=== PATIENT | female | born 1960 | race Caucasian/White ===

== ENCOUNTER 2017-07-10 05:08 | Inpatient (IN) | payer MEDICAID ==
[2017-07-10] MEDS ORDERED: Acetaminophen 500 MG Tab PO ONE (05:51)
[2017-07-10] MEDS ORDERED: Celecoxib 200 MG Cap PO ONE (05:51)
[2017-07-10] MEDS ORDERED: Gabapentin 300 MG Cap PO ONE (05:51)
[2017-07-10] MEDS ORDERED: Dextrose 5%-Lactated Ringers 1,000 ML IV SCH (06:00)
[2017-07-10] MEDS ORDERED: Scopolamine 1.5 MG Transdermal Patch TRDERM ONE (06:00)
[2017-07-10] MEDS ORDERED: Albuterol/Ipratropium 3.0-0.5 MG/3 ML Neb Soln NEB ONE (06:23)
[2017-07-10] MEDS ORDERED: Aspirin 81 MG Tab.Chew PO ONE (06:27)
[2017-07-10] MEDS ORDERED: FLU Vacc QS 2017-18 (36mos UP)/PF 60 MCG/0.5 ML Syringe IM ONE (06:30)
[2017-07-10] MEDS ORDERED: cefOXitin 2 GM Vial ONE (06:42)
[2017-07-10] MEDS ORDERED: Rocuronium 50 MG/5 ML Vial ONE ×2 (07:04→08:56)
[2017-07-10] MEDS ORDERED: fentaNYL 250 MCG/5 ML SDV ONE (07:04)
[2017-07-10] MEDS ORDERED: Propofol 200 MG/20 ML SDV ONE (07:04)
[2017-07-10] MEDS ORDERED: Glycopyrrolate 0.2 MG/ML 5 ML MDV ONE (07:04)
[2017-07-10] MEDS ORDERED: Neostigmine Methylsulfate 1 MG/ML 5 ML Syringe ONE (07:04)
[2017-07-10] MEDS ORDERED: Dexamethasone 4 MG/ML SDV ONE (07:04)
[2017-07-10] MEDS ORDERED: Succinylcholine 200 MG/10 ML MDV ONE (07:04)
[2017-07-10] MEDS ORDERED: Ondansetron 4 MG/2 ML SDV ONE (07:04)
[2017-07-10] MEDS ORDERED: Aspirin 325 MG Tab.EC PO ONE (07:15)
[2017-07-10] MEDS ORDERED: cefOXitin 2 GM in Sodium Chloride 0.9% 50 ML IV ONE ×4 (07:30)
[2017-07-10] MEDS ORDERED: Lidocaine 2% 100 MG/5 ML Syringe IVPUSH ONE (07:30)
[2017-07-10] MEDS ORDERED: Ketamine 500 MG/5 ML MDV IV SCH (07:30)
[2017-07-10] MEDS ORDERED: Lidocaine 0.4%/D5W 2 GM/500 ML BAG IV SCH (07:30)
[2017-07-10] MEDS ORDERED: Ropivacaine 60 ML, Dexamethasone 8 MG, EPINEPHrine 0.4 MG, Sodium Chloride 0.9% 17.6 ML NERVRT SCH ×4 (07:30)
[2017-07-10] MEDS ORDERED: ePHEDrine 50 MG/ML SDV ONE (07:52)
[2017-07-10] MEDS ORDERED: Phenylephrine 1% 10 MG/ML SDV ONE (08:51)
[2017-07-10] MEDS ORDERED: Sugammadex Sodium 200 MG/2 ML VIAL ONE (09:54)
[2017-07-10] MEDS ORDERED: Insulin Aspart 100 Units/ML 3 ML Pen SUBCUT ONE (10:15)
[2017-07-10] MEDS ORDERED: hydrOXYzine HCl 100 MG/2 ML SDV IM ONE (10:39)
[2017-07-10] MEDS: Dextrose 5%-Lactated Ringers 1,000 ML IV SCH (12:20)
[2017-07-10] MEDS: CHECK SCOPOLAMINE PATCH DAILY TOP SCH (12:23)
[2017-07-10] MEDS ORDERED: Albuterol/Ipratropium 3.0-0.5 MG/3 ML Neb Soln INH PRN (14:00)
[2017-07-10] MEDS ORDERED: hydrOXYzine HCl 100 MG/2 ML SDV IM PRN (14:00)
[2017-07-10] MEDS ORDERED: 50% Dextrose in Water 50 ML Syringe IVPUSH PRN (14:00)
[2017-07-10] MEDS ORDERED: Labetalol 20 MG/4 ML Syringe IVPUSH PRN (14:00)
[2017-07-10] MEDS ORDERED: Ondansetron 4 MG/2 ML SDV IVPUSH PRN (14:00)
[2017-07-10] MEDS ORDERED: Metoclopramide 10 MG/2 ML SDV IVPUSH PRN (14:00)
[2017-07-10] MEDS ORDERED: Glucagon,Human Recombinant 1 MG Vial IM PRN (14:00)
[2017-07-10] MEDS ORDERED: diphenhydrAMINE 50 MG/ML SDV IVPUSH PRN (14:00)
[2017-07-10] MEDS: Gabapentin 250 MG/5 ML Solution ML 470 ML Bottle PO SCH ×2 (14:28→20:17)
[2017-07-10] MEDS: cefOXitin 2 GM in Sodium Chloride 0.9% 50 ML IV SCH ×2 (14:28→20:15)
[2017-07-10] MEDS: Acetaminophen Soln 650 MG/20.3 ML UD Cup PO SCH ×2 (14:29→20:17)
[2017-07-10] MEDS: Pantoprazole 40 MG Vial IVPUSH SCH (14:30)
[2017-07-10] MEDS: Albuterol/Ipratropium 3.0-0.5 MG/3 ML Neb Soln INH SCH ×2 (15:00→20:17)
[2017-07-10] MEDS ORDERED: MVI, Adult with Vitamin K 10 ML, Thiamine 200 MG, Chromium/Copper/Mang/Selen/Zn 1 ML in... IV SCH ×4 (16:00)
[2017-07-10] MEDS: Insulin Aspart 100 Units/ML 3 ML Pen SUBCUT PRN (17:50)
[2017-07-10] MEDS: Heparin Sodium 5,000 Units/ML Vial SUBCUT SCH (17:50)
[2017-07-10] MEDS: Ketoconazole 2% Crm 30 GM Tube TOP SCH (20:18)
[2017-07-10] MEDS: Metoprolol Tartrate 50 MG Tab PO SCH (20:18)
[2017-07-10] MEDS ORDERED: Insulin Detemir 100 Units/ML 3 ML Pen SUBCUT SCH (21:00)
[2017-07-10] MEDS ORDERED: Insulin Aspart 100 Units/ML 3 ML Pen SUBCUT STA (22:22)
[2017-07-10] MEDS ORDERED: Insulin Detemir 100 Units/ML 3 ML Pen SUBCUT ONE (22:27)
[2017-07-11] MEDS: cefOXitin 2 GM in Sodium Chloride 0.9% 50 ML IV SCH ×2 (01:28→08:20)
[2017-07-11] MEDS: Acetaminophen Soln 650 MG/20.3 ML UD Cup PO SCH ×4 (01:28→19:31)
[2017-07-11] MEDS ORDERED: Iohexol 647 MG/ML 50 ML SDV PO STA (03:44)
[2017-07-11] MEDS: Insulin Aspart 100 Units/ML 3 ML Pen SUBCUT PRN ×2 (05:01→11:04)
[2017-07-11] MEDS: Heparin Sodium 5,000 Units/ML Vial SUBCUT SCH ×2 (06:07→17:11)
[2017-07-11] MEDS: Dextrose 5%-Lactated Ringers 1,000 ML IV SCH (06:25)
[2017-07-11] MEDS ORDERED: Ondansetron 4 MG Tab.DIS PO PRN (07:29)
[2017-07-11] MEDS ORDERED: Lactated Ringers 1,000 ML IV SCH (07:30)
[2017-07-11] MEDS ORDERED: Zolpidem 5 MG Tab PO PRN (07:37)
[2017-07-11] MEDS: Albuterol/Ipratropium 3.0-0.5 MG/3 ML Neb Soln INH SCH ×3 (07:37→21:16)
[2017-07-11] MEDS: Celecoxib 200 MG Cap PO SCH (08:22)
[2017-07-11] MEDS: Baclofen 10 MG Tab PO SCH ×3 (08:25→21:07)
[2017-07-11] MEDS: Metoprolol Tartrate 50 MG Tab PO SCH ×2 (08:25→21:07)
[2017-07-11] MEDS: Levothyroxine 75 MCG Tab PO SCH (08:25)
[2017-07-11] MEDS: Gabapentin 250 MG/5 ML Solution ML 470 ML Bottle PO SCH (08:26)
[2017-07-11] MEDS: CHECK SCOPOLAMINE PATCH DAILY TOP SCH (08:26)
[2017-07-11] MEDS: Ketoconazole 2% Crm 30 GM Tube TOP SCH ×2 (08:26→21:07)
[2017-07-11] MEDS: buPROPion 150 MG Tab.SR PO SCH ×2 (08:27→21:08)
--- NOTE | 2017-07-11 08:39 | PN ---
DATE OF SERVICE: 07/11/2017 SUBJECTIVE: Sonal was very sleepy. During the night, her lidocaine was discontinued. She did wake up a little bit more. Vital signs have been stable. Oral intake was down, due to sleepiness, to 365. Her urine output was 1650. CRIS drain put out 220 mL of a light red clear drainage. Pain has been controlled. REVIEW OF SYSTEMS: Remainder of review of systems negative for any pertinent positives or negatives with the exception of her legs are quite weak when she goes to stand up. Blood sugars have been 319, 429, and 207. She has received insulin coverage. OBJECTIVE: GENERAL: Sonal Gaston is a 57-year-old female. She is sleepy, but awakens easily. VITAL SIGNS: TPR is 98.5, 80, 18, and blood pressure 126/50. HEENT: Negative. NECK: Supple. HEART: Regular rate and rhythm. LUNGS: Clear. ABDOMEN: Dressings dry and intact. Abdominal binder is on. CRIS drain, as stated above. EXTREMITIES: SCDs are on. ASSESSMENT: Laparoscopic Sony-en-Y gastric bypass surgery, liver biopsy, repair of diaphragmatic hernia, and excision of peritoneal nodule for morbid obesity, hepatomegaly, diaphragmatic hernia, and peritoneal nodule. Date of surgery, 07/10/2017, Manuel Sunshine MD. PLAN: 1. IV lactated Ringer 200 mL per hour. 2. Discontinue D5LR. 3. Step-2 with no cereal gastric bypass diet. 4. Dressing off. May shower. 5. Check BMP and BNP in a.m. 6. Physical therapy for strength and conditioning. 7. Magnesium 2 grams IV q.6 hours x72 hours. 8. Sitagliptin 25 mg (Januvia) p.o. daily. 9. Baclofen 10 mg p.o. t.i.d. 10.Bupropion 150 mg p.o. q.12 hours. 11.Prozac (fluoxetine) 60 mg p.o. daily. 12.Hydrochlorothiazide 25 mg p.o. daily. 13.Levothyroxine 75 mcg p.o. daily. 14.Lisinopril 40 mg p.o. daily. 15.Sonata (zaleplon) 10 mg capsule p.o. at bedtime. 16.Good pulmonary toilet. 17.We will evaluate p.r.n. or in a.m. Carmelita Moralesby, PA-C /[id number]
[2017-07-11] MEDS ORDERED: FLUoxetine 20 MG Cap PO SCH (09:00)
[2017-07-11] MEDS ORDERED: Aspirin 81 MG Tab.Chew PO SCH (09:00)
[2017-07-11] MEDS ORDERED: Isosorbide Mononitrate 30 MG Tab.ER PO SCH (09:00)
[2017-07-11] MEDS ORDERED: Lisinopril 20 MG Tab PO SCH (09:00)
[2017-07-11] MEDS ORDERED: Hydrochlorothiazide 25 MG Tab PO SCH (09:00)
[2017-07-11] MEDS: Magnesium Sulfate/Water 2 GM in Premix Bag 1 BAG IV SCH ×3 (09:08→21:07)
--- NOTE | 2017-07-11 11:29 | CR ---
UPPER GI LIMITED Clinical history: Status post Sony-en-Y Findings: Patient swallowed a small amount water-soluble contrast. There is a surgical drain in the l eft upper quadrant. There is a small amount contrast in the gastric remanent. There is no evidence to suggest extravasation. There is some distention of the proximal small bowel. Distal anastomosis is n ot opacified. Impression: Limited upper GI shows status post Sony-en-Y procedure No evidence of extravasation Small bowel distention likely related to some ileus.
--- NOTE | 2017-07-11 13:18 | OR ---
DATE OF PROCEDURE: 07/10/2017 PREOPERATIVE DIAGNOSIS: Morbid obesity. POSTOPERATIVE DIAGNOSES: 1. Morbid obesity. 2. Marked hepatomegaly. 3. Paraesophageal diaphragmatic hernia. 4. Peritoneal nodule overlying the lesser omentum adjacent to gastric cardia. 5. Mediastinal lipoma. OPERATIVE PROCEDURE: 1. Laparoscopic Sony-en-Y gastric bypass with long limb gastroenterostomy (68685). 2. David-Cut needle liver biopsy (37877). 3. Repair of paraesophageal diaphragmatic hernia (95496). 4. Excision of peritoneal nodule overlying the lesser omentum, adjacent to gastric cardia (52088). 5. Excision of mediastinal lipoma (56285). ANESTHESIA: General. ASSISTANTS: Carmelita Webster PA-C and YOVANI Dawkins3. INDICATIONS FOR PROCEDURE: A 57-year-old female presenting with longstanding morbid obesity and increasingly significant comorbidities. After preoperative evaluation and discussion, she wished to proceed with a gastric bypass procedure. Potential risks including bleeding, infection, injury to underlying viscera, leaks from various GI tract closures, problems with bowel obstruction over time as well as possibility of cardiopulmonary, septic, or hemorrhagic complications leading to were all discussed, and the patient wishes to proceed. DETAILS OF PROCEDURE: The patient was taken to the operating room and placed in a supine position. After general endotracheal anesthesia was induced, she was converted to a lithotomy position. An orogastric tube was placed and the abdomen was prepped and draped. At 15 cm inferior, and 5 cm left of xiphoid process, a transverse incision was made and the peritoneal cavity entered under direct vision with an Optiview trocar, inflated to 15 mmHg pressure with CO2. Following this, the lower abdomen was examined. Initially, the left lateral trocar site was placed after an incision was made there and some adhesions between the omentum and the anterior abdominal wall were taken down in the previous right subcostal area. This allowed adequate mobilization of the upper abdomen in general and bilateral transversus abdominis plane blocks were placed with direct visualization of the needle in the correct location and standard injection was placed bilaterally. Following this, 4 additional trocars were placed across the upper and mid abdomen and the patient was noted to have marked hepatomegaly with the liver volume being roughly 2 to 3 times normal, liver grossly fatty infiltrated. David-Cut needle biopsy was obtained from the left lobe of the lower. Minimal bleeding from the biopsy sites was controlled with electrocautery. At this point, the omentum was divided in the midline up to the level of the transverse colon. This allowed identification of the small bowel at the ligament of Treitz. The small bowel was then traced out 150 cm distal to that point, was divided transversely with a MIRA stapler. The small bowel was then traced out additional 200 cm where the [id number] enteroenterostomy was accomplished with internal firing of the Endo-MIRA 60 mm stapler. The common opening was then closed transversely with the same stapler and angles anastomosed, and mesenteric defect approximated with some 0 Ethibond stitch along with 4 mL of fibrin sealant. The divided end of the Sony limb was then brought up to the area of the esophagogastric junction through an antecolic, antegastric approach without significant tension. At this point, the liver was retracted anteriorly. The patient was noted to have a small, roughly 2 to 3 mm nodule located overlying the peritoneum of the lesser omentum, adjacent to the gastric cardia. This was excised. The patient was also noted to have a moderate-sized paraesophageal diaphragmatic hernia. The latter was incised and reduced and this was repaired with a series of 0 Ethibond sutures reinforced with PTFE pledgets. The patient did have a mediastinal lipoma identified during the course of the dissection which was similarly excised for histologic evaluation. The gastrointestinal balloon catheter was then inflated to 15 mL and pulled up against the EG junction, gastric wall over the apex of the balloon was then marked with electrocautery, and balloon catheter deflated and pulled up into the esophagus. The lesser omental tissue adjacent to the gastric cardia was then incised allowing dissection behind the stomach at that level. Pouch formation was initiated with a transverse firing of the MIRA stapler at the level of the cauterized jose on the gastric cardia, and this was then completed with 2 additional firings of MIRA stapler up to and through the angle of His. Upon completion of the pouch, both staple lines were noted to be intact. The anvil of a 25-mm EEA stapler was attached to a [place] sump-type tube, the latter was brought down through the mouth, taken out through a small opening in the gastric pouch allowing the anvil likewise to be pulled down to within the gastric pouch. The divided end of the Sony limb was then opened. The main body of the EEA stapler passed several centimeters into the lumen of the small bowel, brought up the anvil and united with it, thus creating the gastrojejunostomy. Upon removal of the stapler, double donuts of mucosa were noted within it. The small bowel was closed off with a vascular staple line. Gastrojejunostomy was reinforced with 3-0 Vicryl seromuscular stitch along with fibrin sealant. A leak test was accomplished with injection of 120 mL of air in the gastric pouch while submerged with cefoxitin-containing saline solution. No leaks were identified. A single Gerard-Cheung drain was then taken out of the left lateral trocar site and positioned adjacent to gastrojejunostomy, and from there up into the splenic fossa with no further problems noted. Trocars were removed. The peritoneal cavity deflated. Incisions were closed with 4-0 Vicryl skin stitch. The drain was likewise affixed with a 4-0 Vicryl stitch and the patient was taken to the recovery room in satisfactory condition. Physician practice assistant, Carmelita Webster, played an essential role in assisting in this case, helping to position the patient, retract structures as needed, as well as suturing and cutting sutures when indicated. Her presence improved patient safety and decreased the operative time. Manuel Sunshine MD /[id number]
[2017-07-11] MEDS: Pantoprazole 40 MG Vial IVPUSH SCH (13:55)
[2017-07-11] MEDS ORDERED: MVI, Adult with Vitamin K 10 ML, Thiamine 200 MG, Chromium/Copper/Mang/Selen/Zn 1 ML in... IV SCH ×4 (16:00)
[2017-07-12] MEDS: Albuterol/Ipratropium 3.0-0.5 MG/3 ML Neb Soln INH SCH ×6 (01:51→20:36)
[2017-07-12] MEDS ORDERED: Furosemide 40 MG/4 ML VIAL IVPUSH STA (01:53)
[2017-07-12] MEDS ORDERED: Furosemide 40 MG/4 ML VIAL ONE (01:57)
[2017-07-12] MEDS ORDERED: Propofol 200 MG/20 ML SDV IVPUSH ONE ×2 (02:30→02:40)
[2017-07-12] MEDS ORDERED: Rocuronium 50 MG/5 ML Vial IV ONE (02:30)
[2017-07-12] MEDS ORDERED: Heparin Sodium 5,000 Units/ML Vial ONE (02:37)
[2017-07-12] MEDS ORDERED: Dextrose 5% in Water 250 ML ONE ×2 (03:49→04:29)
[2017-07-12] MEDS ORDERED: Sodium Chloride 0.9% 1,000 ML IV ONE (03:51)
[2017-07-12] MEDS ORDERED: methylPREDNISolone Sodium Succinate 125 MG/2 ML SDV IVPUSH ONE (03:58)
[2017-07-12] MEDS: Norepinephrine 4 MG in Dextrose 5% in Water 246 ML IV SCH ×10 (04:00→22:32)
[2017-07-12] MEDS: Acetaminophen Soln 650 MG/20.3 ML UD Cup PO SCH ×2 (04:02→08:06)
--- NOTE | 2017-07-12 04:22 | PCM.CONS ---
H&P History of Present Illness - General Date of Service: 07/12/17 Admit Problem/Dx: Source of Information: Family, Old Records, Provider, RN History Limitations: Reports: Respiratory Distress (Intubated and sedated) - History of Present Illness Initial Comments - Free Text/Narative: Ms. Gaston is a 57-year-old woman who I been asked to see by Dr. Sunshine for assistance in management of acute hypoxic and hypercapnic respiratory failure. Ms. Gaston underwent gastric bypass surgery 2 days ago and had been doing well during the initial postoperative course. Early this morning was noted to have relatively abrupt onset of respiratory compromise with severe hypoxia and increasing respiratory rate. Gases were obtained which showed hypoxia and significant hypercapnia with respiratory acidosis and a pH of 7.015. She is currently intubated and unable to provide significant history concerning symptoms or past history. Review of records symptoms that she has a past history of coronary artery disease with previous angioplasty and stent placement. There is also underlying chronic kidney disease stage III and type 2 diabetes mellitus. She has had documented sleep apnea and does use C Pap at night. Because of rapid progression of respiratory failure and ongoing hypoxia she was intubated by the emergency room physician prior to my arrival. Chest x- ray shows bilateral interstitial edema consistent with pulmonary edema congestive heart failure. Incisional Pain Score (Numeric/FACES): 2 Upper Abdomen Pain Score (Numeric/FACES): 8 - Related Data Allergies/Adverse Reactions: Allergies Allergy/AdvReac Type Severity Reaction Status Date / Time Penicillins Allergy Itching Verified 07/10/17 06:03 Home Medications: Home Meds Baclofen [Lioresal] 10 mg PO TID 12/09/15 [History] Hydrochlorothiazide 25 mg PO DAILY 12/09/15 [History] Insulin Glargine,Hum.Rec.Anlog [Lantus Solostar] 45 unit SQ Q12H 12/09/15 [ History] Isosorbide Mononitrate [Imdur] 30 mg PO DAILY 12/09/15 [History] Levothyroxine Sodium [Synthroid] 75 mcg PO DAILY 12/09/15 [History] Lisinopril 40 mg PO DAILY 12/09/15 [History] Metoprolol Tartrate [Lopressor] 100 mg PO BID 12/09/15 [History] Omeprazole Magnesium [Prilosec Otc] 40 mg PO DAILY 12/09/15 [History] buPROPion HCl [Bupropion HCl Sr] 150 mg PO Q12H 12/09/15 [History] Aspirin [Halfprin] 81 mg PO DAILY 07/07/17 [History] Cyanocobalamin (Vitamin B-12) [Vitamin B-12] 1,000 mcg PO DAILY 07/07/17 [ History] FLUoxetine HCl [Prozac] 60 mg PO DAILY 07/07/17 [History] Meloxicam [Mobic] 7.5 mg PO DAILY 07/07/17 [History] Multivitamins [Childrens Chewable Vitamin] 1 tab PO BID 07/07/17 [History] Zaleplon [Sonata] 10 mg PO BEDTIME 07/07/17 [History] atorvaSTATin [Lipitor] 40 mg PO BEDTIME 07/07/17 [History] Insulin Glulisine [Apidra Solostar] 8 units SUBCUT BIDMEALS 07/10/17 [History] Past Medical History HEENT History: Reports: Cataract, Impaired Vision Cardiovascular History: Reports: CAD, Heart Murmur, High Cholesterol, Hypertension, Stents Respiratory History: Reports: Sleep Apnea Gastrointestinal History: Reports: Gastritis, Other (See Below) Other Gastrointestinal History: Hx of bleeding ulcers. Genitourinary History: Reports: Other (See Below) Other Genitourinary History: mild kidney failure in past. [employer] History: Reports: Musculoskeletal History: Reports: Arthritis, Fracture, Other (See Below) Other Musculoskeletal History: foot fx nose fx Needs bilateral knee replacement. Psychiatric History: Reports: Anxiety, Depression Endocrine/Metabolic History: Reports: Diabetes, Type II, Hypothyroidism, Obesity /BMI 30+ Hematologic History: Reports: Blood Transfusion(s) - Infectious Disease History Infectious Disease History: Reports: Chicken Pox - Past Surgical History HEENT Surgical History: Reports: Cataract Surgery, Oral Surgery, Tonsillectomy Cardiovascular Surgical History: Reports: Coronary Artery Stent GI Surgical History: Reports: Cholecystectomy, Colonoscopy, EGD, Other (See Below) Other GI Surgeries/Procedures: fixed hernia as child Female Surgical History: Reports: Section, Tubal Ligation Social & Family History - Tobacco Use Smoking Status *Q: Never Smoker Second Hand Smoke Exposure: No - Caffeine Use Caffeine Use: Reports: Tea - Recreational Drug Use Recreational Drug Use: No H&P Review of Systems - Review of Systems: Review Of Systems: Unable To Obtain General: Reports: ROS unobtainable (Secondary to intubation and sedation) Exam - Exam Exam: See Below - Vital Signs Vital Signs: Last Vital Signs Temp 96.9 F 07/11/17 22:32 Pulse 76 07/11/17 22:32 Resp 20 07/11/17 22:32 BP 75/34 L 07/12/17 04:08 Pulse Ox 65 L 07/12/17 02:12 Weight: 351 lb - Exam Quality Assessment: Supplemental Oxygen (Intubation with mechanical ventilation) , Urinary Catheter, DVT Prophylaxis General: Sedated, Lethargic Neck: Supple, Trachea Midline, +2 Carotid Pulse wo Bruit Lungs: Decreased Breath Sounds, Rales, Wheezing. No: Crackles, Rhonchi, Rub, Stridor Cardiovascular: Regular Rate, Regular Rhythm, Normal S1, Normal S2. No: Systolic Murmur, Diastolic Murmur GI/Abdominal Exam: Soft, Non-Tender, No Organomegaly, No Distention Extremities: Pedal Edema Skin: Warm, Dry - Patient Data Lab Results Last 24 hrs: Laboratory Results - last 24 hr 07/12/17 07/12/17 07/12/17 Range/Units 02:04 02:05 02:05 WBC 6.4 (4.5-11.0) K/uL RBC 4.10 (3.30-5.50) M/uL Hgb 11.9 L (12.0-15.0) g/dL Hct 36.9 (36.0-48.0) % MCV 90 (80-98) fL MCH 29 (27-31) pg MCHC 32 (32-36) % Plt Count 220 (150-400) K/uL Puncture Site Lt radial ABG pH 7.015 L* (7.350-7.450) ABG pCO2 100.0 H* (35.0-42.0) mmHg ABG pO2 41.2 L* (75.0-100.0) mmHg ABG HCO3 24.4 (22.0-26.0) mmol/L ABG Total CO2 25.0 (21.0-25.0) mmol/L ABG O2 Saturation 49.8 L (95.0-98.0) % ABG O2 Content 8.1 L (15.0-23.0) %vol ABG Base Excess -8.9 mm/L ABG Hemoglobin 11.6 L (12.0-16.0) g/dL ABG Oxyhemoglobin 49.4 % ABG Carboxyhemoglobin 0.2 (0.0-1.6) % ABG Methemoglobin 0.7 % [place] Test Passed O2 Delivery Device Non rebr mask Oxygen Flow Rate 15 L Sodium 136 L (140-148) mmol/L Potassium 4.7 (3.6-5.2) mmol/L Chloride 102 (100-108) mmol/L Carbon Dioxide 23 (21-32) mmol/L Anion Gap 15.7 H (5.0-14.0) mmol/L BUN 31 H (7-18) mg/dL Creatinine 1.7 H (0.6-1.0) mg/dL Est Cr Clr Drug Dosing 28.88 mL/min Estimated GFR (MDRD) 31 L (>60) Glucose 241 H (74-106) mg/dL Calcium 9.2 (8.5-10.1) mg/dL Troponin I < 0.017 (0.000-0.056) ng/mL 07/12/17 Range/Units 03:50 WBC (4.5-11.0) K/uL RBC (3.30-5.50) M/uL Hgb (12.0-15.0) g/dL Hct (36.0-48.0) % MCV (80-98) fL MCH (27-31) pg MCHC (32-36) % Plt Count (150-400) K/uL Puncture Site A-line ABG pH 7.267 L (7.350-7.450) ABG pCO2 50.6 H (35.0-42.0) mmHg ABG pO2 63.0 L (75.0-100.0) mmHg ABG HCO3 22.3 (22.0-26.0) mmol/L ABG Total CO2 21.4 (21.0-25.0) mmol/L ABG O2 Saturation 88.6 L (95.0-98.0) % ABG O2 Content 12.3 L (15.0-23.0) %vol ABG Base Excess -4.2 mm/L ABG Hemoglobin 10.1 L (12.0-16.0) g/dL ABG Oxyhemoglobin 86.6 % ABG Carboxyhemoglobin 1.4 (0.0-1.6) % ABG Methemoglobin 0.9 % [place]abo Test A-line O2 Delivery Device Oxygen Flow Rate L Sodium (140-148) mmol/L Potassium (3.6-5.2) mmol/L Chloride (100-108) mmol/L Carbon Dioxide (21-32) mmol/L Anion Gap (5.0-14.0) mmol/L BUN (7-18) mg/dL Creatinine (0.6-1.0) mg/dL Est Cr Clr Drug Dosing mL/min Estimated GFR (MDRD) (>60) Glucose (74-106) mg/dL Calcium (8.5-10.1) mg/dL Troponin I (0.000-0.056) ng/mL Result Diagrams: 07/12/17 02:05 07/12/17 04:00 Consult PN Assessment/Plan Procedures: Procedures BLOOD TYPING SEROLOGIC ABO (02/04/16) BLOOD TYPING SEROLOGIC RH(D) (02/04/16) COMPLETE CBC W/AUTO DIFF WBC (12/09/15) COMPREHEN METABOLIC PANEL (12/09/15) EMERGENCY DEPT VISIT (12/09/15) POLYSOM 6/> YRS 4/> BEBE (05/23/16) POLYSOM 6/>YRS CPAP 4/> PARM (11/29/16) RBC ANTIBODY SCREEN (02/04/16) ROUTINE VENIPUNCTURE (12/09/15) URINALYSIS AUTO W/SCOPE (12/09/15) Problem List Initiated/Reviewed/Updated: Yes My Orders Last 24 Hours: My Active Orders 07/12/17 02:03 CXR [Chest 1V Frontal] [CR] Stat 07/12/17 02:06 EKG Documentation Completion [RC] ASDIRECTED EKG 12 Lead [EK] Stat 07/12/17 03:30 Heparin Sodium 5,000 units Sodium Chloride 0.9% [Normal Saline] 500 ml IV ASDIRECTED 07/12/17 03:50 TROPONIN I [CHEM] Stat 07/12/17 03:52 Initiate Restraint Protocol [RC] BID RASS Sedation Scale [RC] ASDIRECTED RT Ventilator, Adult [RC] ASDIRECTED Restraint Initiate Non-VIOL/Non-SD [OM.PC] Routine 07/12/17 04:00 Clindamycin Phosphate [Cleocin] 600 mg Sodium Chloride 0.9% [Normal Saline] 50 ml IV Q8H Meropenem [Merrem] 1 gm Sodium Chloride 0.9% [Normal Saline] 100 ml IV Q8H Norepinephrine 4 MG in D5W @ 2 MCG/MIN(250ml) Norepinephrine [Levophed] 4 mg Dextrose 5% in Water 246 ml IV TITRATE Restraint Monitoring Non-VIOL/Non-SD [OM.PC] Daily 07/13/17 04:00 Restraint Monitoring Non-VIOL/Non-SD [OM.PC] Daily 07/13/17 05:00 CXR [Chest 1V Frontal] [CR] DAILY 07/14/17 05:00 CXR [Chest 1V Frontal] [CR] DAILY 07/15/17 05:00 CXR [Chest 1V Frontal] [CR] DAILY 07/16/17 05:00 CXR [Chest 1V Frontal] [CR] DAILY 07/17/17 05:00 CXR [Chest 1V Frontal] [CR] DAILY 07/18/17 05:00 CXR [Chest 1V Frontal] [CR] DAILY Plan: ASSESSMENT AND RECOMMENDATIONS ACUTE HYPOXIC AND HYPERCAPNIC RESPIRATORY FAILURE-bilateral pulmonary infiltrates consistent with pulmonary edema versus infection. I suspect that this is more consistent with infection and component of ARDS. She does have a known history of coronary artery disease. Most recent assessment in February 2017 showed moderate coronary artery disease and medical management was recommended that time by cardiology. Echocardiogram was obtained and showed normal left ventricular function with minimal valvular disease. -Intubation and mechanical ventilation -Daily spontaneous breathing trials after she is stabilized -Minimize IV fluids -Blood and sputum cultures pending -DVT prophylaxis -IV Protonix for stress ulcer prophylaxis -Bumex 2 mg IV now SEPTIC SHOCK-severe hypotension, no evidence of significant cardiac dysfunction or acute myocardial infarction. First 2 troponin levels have been within normal range. Central line has been placed and CVP is noted to be elevated. -IV norepinephrine to maintain mean arterial pressure greater than 65 -IV vasopressin -Minimize fluids -Blood and sputum cultures pending -Empiric IV antibiotic therapy with clindamycin and meropenem pending culture results STATUS POST GASTRIC BYPASS SURGERY -Postoperative care per Dr. Sunshine CHRONIC KIDNEY DISEASE STAGE III -Closely monitor urine output and renal function TYPE 2 DIABETES MELLITUS -Every 6 hours glucometers -Low-dose sliding scale NovoLog 2-1/2 hours of critical care time were spent this morning in the direct management of this patient in the intensive care unit. Requesting Provider: KITTY Date Consult Requested: 07/12/17 Reason for Consult: Acute hypoxic and hypercapnic respiratory failure Patient History Reviewed: Yes Admission H&P Reviewed: Yes Notified Requestor: Yes
[2017-07-12] MEDS ORDERED: Vasopressin 20 Units/1 ML MDV ONE (04:28)
--- NOTE | 2017-07-12 04:38 | PCM.PN ---
- General Info Date of Service: 07/12/17 Admission Dx/Problem (Free Text): Postop bariatric procedure Subjective Update: Called to evaluate patient Patient became short of breath and exhibiting decreased responsiveness Examination shows acute respiratory distress pulse ox in the 50% on room air with little improvement with oxygen Patient is showing gasping respirations and decreased level of consciousness she is having some pink frothy sputum Impression Acute respiratory failure, probable CHF Plan Immediate intubation, see procedure note Patient has already received furosemide 40 mg IV After intubation transferred to ICU Dr. Hanson in consultation for ICU transfer Post intubation saturation improved to 93% Functional Status: Reports: Other (Improved respiratory status) - Patient Data Vitals - Most Recent: Last Vital Signs Temp 36.1 C 07/11/17 22:32 Pulse 76 07/11/17 22:32 Resp 20 07/11/17 22:32 BP 75/34 L 07/12/17 04:08 Pulse Ox 65 L 07/12/17 02:12 Weight - Most Recent: 159.211 kg I&O - Last 24 Hours: Intake & Output 07/11/17 07/11/17 07/12/17 14:59 22:59 06:59 Intake Total 1772 1293 200 Output Total 630 220 100 Balance 1142 1073 100 Lab Results Last 24 Hours: Laboratory Results - last 24 hr 07/12/17 07/12/17 07/12/17 Range/Units 02:04 02:05 02:05 WBC 6.4 (4.5-11.0) K/uL RBC 4.10 (3.30-5.50) M/uL Hgb 11.9 L (12.0-15.0) g/dL Hct 36.9 (36.0-48.0) % MCV 90 (80-98) fL MCH 29 (27-31) pg MCHC 32 (32-36) % Plt Count 220 (150-400) K/uL Puncture Site Lt radial ABG pH 7.015 L* (7.350-7.450) ABG pCO2 100.0 H* (35.0-42.0) mmHg ABG pO2 41.2 L* (75.0-100.0) mmHg ABG HCO3 24.4 (22.0-26.0) mmol/L ABG Total CO2 25.0 (21.0-25.0) mmol/L ABG O2 Saturation 49.8 L (95.0-98.0) % ABG O2 Content 8.1 L (15.0-23.0) %vol ABG Base Excess -8.9 mm/L ABG Hemoglobin 11.6 L (12.0-16.0) g/dL ABG Oxyhemoglobin 49.4 % ABG Carboxyhemoglobin 0.2 (0.0-1.6) % ABG Methemoglobin 0.7 % Gustabo Test Passed O2 Delivery Device Non rebr mask Oxygen Flow Rate 15 L Sodium 136 L (140-148) mmol/L Potassium 4.7 (3.6-5.2) mmol/L Chloride 102 (100-108) mmol/L Carbon Dioxide 23 (21-32) mmol/L Anion Gap 15.7 H (5.0-14.0) mmol/L BUN 31 H (7-18) mg/dL Creatinine 1.7 H (0.6-1.0) mg/dL Est Cr Clr Drug Dosing 28.88 mL/min Estimated GFR (MDRD) 31 L (>60) Glucose 241 H (74-106) mg/dL Calcium 9.2 (8.5-10.1) mg/dL Troponin I < 0.017 (0.000-0.056) ng/mL 07/12/17 Range/Units 03:50 WBC (4.5-11.0) K/uL RBC (3.30-5.50) M/uL Hgb (12.0-15.0) g/dL Hct (36.0-48.0) % MCV (80-98) fL MCH (27-31) pg MCHC (32-36) % Plt Count (150-400) K/uL Puncture Site A-line ABG pH 7.267 L (7.350-7.450) ABG pCO2 50.6 H (35.0-42.0) mmHg ABG pO2 63.0 L (75.0-100.0) mmHg ABG HCO3 22.3 (22.0-26.0) mmol/L ABG Total CO2 21.4 (21.0-25.0) mmol/L ABG O2 Saturation 88.6 L (95.0-98.0) % ABG O2 Content 12.3 L (15.0-23.0) %vol ABG Base Excess -4.2 mm/L ABG Hemoglobin 10.1 L (12.0-16.0) g/dL ABG Oxyhemoglobin 86.6 % ABG Carboxyhemoglobin 1.4 (0.0-1.6) % ABG Methemoglobin 0.9 % Gustabo Test A-line O2 Delivery Device Oxygen Flow Rate L Sodium (140-148) mmol/L Potassium (3.6-5.2) mmol/L Chloride (100-108) mmol/L Carbon Dioxide (21-32) mmol/L Anion Gap (5.0-14.0) mmol/L BUN (7-18) mg/dL Creatinine (0.6-1.0) mg/dL Est Cr Clr Drug Dosing mL/min Estimated GFR (MDRD) (>60) Glucose (74-106) mg/dL Calcium (8.5-10.1) mg/dL Troponin I (0.000-0.056) ng/mL Med Orders - Current: Current Medications Acetaminophen (Tylenol) 650 mg PO Q6H [facility] Last Admin: 07/12/17 04:02 Dose: Not Given Albuterol/Ipratropium (Duoneb 3.0-0.5 Mg/3 Ml) 3 ml INH QIDRT [facility] Last Admin: 07/12/17 01:51 Dose: 3 ml Albuterol/Ipratropium (Duoneb 3.0-0.5 Mg/3 Ml) 3 ml INH ASDIRECTED PRN PRN Reason: BREATHING Aspirin (Aspirin) 324 mg PO DAILY [facility] Last Admin: 07/11/17 08:27 Dose: 324 mg Baclofen (Lioresal) 10 mg PO TID [facility] Last Admin: 07/11/17 21:07 Dose: 10 mg Bupropion HCl (Wellbutrin Sr) 150 mg PO BID [facility] Last Admin: 07/11/17 21:08 Dose: 150 mg Celecoxib (Celebrex) 200 mg PO DAILY@0800 [facility] Last Admin: 07/11/17 08:22 Dose: 200 mg Cyanocobalamin (Vitamin B12) 1,000 mcg IM ONETIME ONE Stop: 07/12/17 09:01 Dextrose/Water (Dextrose 50% In Water) 50 ml IVPUSH ONETIME PRN PRN Reason: ACCUCHECK LESS THAN 70 Diphenhydramine HCl (Benadryl) 25 - 50 mg IVPUSH Q4H PRN PRN Reason: ITCHING Fluoxetine HCl (Prozac) 60 mg PO DAILY [facility] Last Admin: 07/11/17 08:27 Dose: 60 mg Glucagon (Glucagen) 1 mg IM ONETIME PRN PRN Reason: ACCUCHECK LESS THAN 70 Heparin Sodium (Porcine) (Heparin Sodium) 5,000 units SUBCUT Q12H [facility] Last Admin: 07/11/17 17:11 Dose: 5,000 units Hydrochlorothiazide (Hydrochlorothiazide) 25 mg PO DAILY [facility] Last Admin: 07/11/17 08:24 Dose: 25 mg Hydroxyzine HCl (Vistaril) 75 - 100 mg IM Q4H PRN PRN Reason: pain Lactated Ringer's (Ringers, Lactated) 1,000 mls @ 100 mls/hr IV ASDIRECTED [facility] Last Admin: 07/11/17 08:20 Dose: 100 mls/hr Magnesium Sulfate 2 gm/ Premix 50 mls @ 25 mls/hr IV Q6H [facility] Stop: 07/14/17 05:59 Last Admin: 07/11/17 21:07 Dose: 25 mls/hr Multivitamins/Minerals 10 ml/Thiamine HCl 200 mg/ Chromium/Copper/Manganese/ Seleni/Zn 1 ml/ Lactated Ringer's 1,013 mls @ 100 mls/hr IV DAILY@1600 [facility] Last Admin: 07/11/17 17:11 Dose: 100 mls/hr Propofol (Diprivan 100 Ml) 100 mls @ 4.776 mls/hr IV TITRATE ROB; 5 MCG/KG/MIN PRN Reason: Protocol Last Titration: 07/12/17 04:24 Dose: 55 mcg/kg/min, 52.54 mls/hr Heparin Sodium (Porcine) 5,000 (units/ Sodium Chloride) 501 mls @ 5 mls/hr IV ASDIRECTED [facility] Norepinephrine Bitartrate 4 mg (/ Dextrose/Water) 250 mls @ 7.5 mls/hr IV TITRATE ROB; 2 MCG/MIN PRN Reason: Protocol Last Titration: 07/12/17 04:23 Dose: 10 mcg/min, 37.5 mls/hr Clindamycin Phosphate 600 mg/ (Sodium Chloride) 54 mls @ 100 mls/hr IV Q8H [facility] Last Admin: 07/12/17 04:19 Dose: 100 mls/hr Meropenem 1 gm/ Sodium (Chloride) 100 mls @ 200 mls/hr IV Q8H [facility] Vasopressin 100 units/ (Dextrose/Water) 255 mls @ 4.59 mls/hr IV TITRATE ROB; 0.03 UNITS/MIN PRN Reason: Protocol Influenza Virus Vaccine (Fluzone Quad 3136-6384) 60 mcg IM .ONCE ONE Stop: 07/12/17 11:31 Insulin Aspart (Novolog) 0 unit SUBCUT Q6H PRN; Protocol PRN Reason: PER CORRECTIONAL DOSING Last Admin: 07/11/17 11:04 Dose: 5 units Isosorbide Mononitrate (Imdur) 30 mg PO DAILY [facility] Last Admin: 07/11/17 08:24 Dose: 30 mg Ketoconazole (Nizoral 2% Crm) 0 gm TOP BID [facility] Last Admin: 07/11/17 21:07 Dose: Not Given Labetalol HCl (Normodyne) 5 - 15 mg IVPUSH Q1H PRN PRN Reason: SBP over 160 OR DBP over 95 Levothyroxine Sodium (Levothyroxine) 75 mcg PO DAILY@0730 [facility] Last Admin: 07/11/17 08:25 Dose: 75 mcg Lisinopril (Prinivil) 40 mg PO DAILY [facility] Last Admin: 07/11/17 08:27 Dose: 40 mg Metoclopramide HCl (Reglan) 10 mg IVPUSH Q6H PRN PRN Reason: NAUSEA NOT CONTROL BY ZOFRAN Metoprolol Tartrate (Lopressor) 100 mg PO BID [facility] Last Admin: 07/11/17 21:07 Dose: 100 mg Miscellaneous Information (Remove Patch) 1 ea TRDERM ONETIME ONE Stop: 07/12/17 10:01 Check Scopolamine (Patch Daily) 1 each TOP DAILY [facility] Last Admin: 07/11/17 08:26 Dose: Not Given Ondansetron HCl (Zofran) 4 mg IVPUSH Q4H PRN PRN Reason: Nausea/Vomiting Last Admin: 07/11/17 09:06 Dose: 4 mg Ondansetron HCl (Zofran Odt) 4 mg PO Q4H PRN PRN Reason: Nausea/Vomiting Pantoprazole Sodium (Protonix Granules) 40 mg PO Q24H [facility] Zolpidem Tartrate (Ambien) 10 mg PO BEDTIME PRN PRN Reason: Sleep Discontinued Medications Acetaminophen (Tylenol Extra Strength) 1,000 mg PO ONETIME ONE Stop: 07/10/17 05:52 Last Admin: 07/10/17 06:22 Dose: 1,000 mg Albuterol/Ipratropium (Duoneb 3.0-0.5 Mg/3 Ml) 3 ml NEB ONETIME ONE Stop: 07/10/17 06:24 Last Admin: 07/10/17 07:14 Dose: 3 ml Aspirin (Ecotrin) 325 mg PO ONETIME ONE Stop: 07/10/17 07:16 Last Admin: 07/10/17 07:25 Dose: 325 mg Cefoxitin Sodium (Mefoxin) Confirm Administered Dose 2 gm .ROUTE .STK-MED ONE Stop: 07/10/17 06:43 Last Admin: 07/10/17 08:17 Dose: 2 gm Celecoxib (Celebrex) 200 mg PO ONETIME ONE Stop: 07/10/17 05:52 Last Admin: 07/10/17 06:21 Dose: 200 mg Ropivacaine 60 ml/Dexamethasone 8 mg/Epinephrine HCl 0.4 mg/ Sodium Chloride 17.6 ml 0 ml NERVRT ASDIRECTED [facility] Last Admin: 07/10/17 08:06 Dose: 80 syringe Dexamethasone (Dexamethasone) Confirm Administered Dose 4 mg .ROUTE .STK-MED ONE Stop: 07/10/17 07:05 Ephedrine Sulfate (Ephedrine Sulfate) Confirm Administered Dose 50 mg .ROUTE .STK-MED ONE Stop: 07/10/17 07:53 Fentanyl (Sublimaze) Confirm Administered Dose 250 mcg .ROUTE .STK-MED ONE Stop: 07/10/17 07:05 Furosemide (Lasix) 40 mg IVPUSH ONETIME STA Stop: 07/12/17 01:54 Last Admin: 07/12/17 02:06 Dose: 40 mg Furosemide (Lasix) Confirm Administered Dose 40 mg .ROUTE .STK-MED ONE Stop: 07/12/17 01:58 Last Admin: 07/12/17 04:02 Dose: 40 mg Gabapentin (Neurontin) 300 mg PO ONETIME ONE Stop: 07/10/17 05:52 Last Admin: 07/10/17 06:21 Dose: 300 mg Gabapentin (Neurontin) 300 mg PO TID [facility] Last Admin: 07/11/17 08:26 Dose: 300 mg Glycopyrrolate (Robinul) Confirm Administered Dose 1 mg .ROUTE .STK-MED ONE Stop: 07/10/17 07:05 Heparin Sodium (Porcine) (Heparin Sodium) Confirm Administered Dose 5,000 units .ROUTE .STK-MED ONE Stop: 07/12/17 02:38 Last Admin: 07/12/17 04:03 Dose: 5,000 units Hydroxyzine HCl (Vistaril) 100 mg IM ONETIME ONE Stop: 07/10/17 10:40 Last Admin: 07/10/17 10:42 Dose: 100 mg Lidocaine HCl/Dextrose (Lidocaine 2 Gm/D5w 500 Ml) 2 gm in 500 mls @ 30 mls/hr IV .[id number] [facility] PRN Reason: 2 MG/MIN Stop: 07/11/17 10:00 Last Admin: 07/10/17 12:21 Dose: 2 mg/min, 30 mls/hr Ketamine HCl 100 mg/ Sodium (Chloride) 100 mls @ 16.5 mls/[facility] PRN Reason: 5 MCG/KG/MIN Dextrose/Lactated Ringer's (Dextrose 5%-Lactated Ringers) 1,000 mls @ 100 mls/ hr IV ASDIRECTED [facility] Last Admin: 07/10/17 07:00 Dose: 100 mls/hr Cefoxitin Sodium 2 gm/ Sodium (Chloride) 50 mls @ 100 mls/hr IV ONETIME ONE Stop: 07/10/17 07:59 Last Admin: 07/10/17 07:25 Dose: 100 mls/hr Dextrose/Lactated Ringer's (Dextrose 5%-Lactated Ringers) 1,000 mls @ 175 mls/ hr IV ASDIRECTED [facility] Last Admin: 07/11/17 06:25 Dose: 175 mls/hr Multivitamins/Minerals 10 ml/Thiamine HCl 200 mg/ Chromium/Copper/Manganese/ Seleni/Zn 1 ml/ Dextrose/Lactated Ringer's 1,013 mls @ 175 mls/hr IV DAILY@ 1600 [facility] Last Admin: 07/10/17 17:50 Dose: 175 mls/hr Cefoxitin Sodium 2 gm/ Sodium (Chloride) 50 mls @ 100 mls/hr IV Q6H [facility] Stop: 07/11/17 07:59 Last Admin: 07/11/17 08:20 Dose: 100 mls/hr Propofol (Diprivan 100 Ml) Confirm Administered Dose 100 mls @ as directed .ROUTE .[facility] ONE Stop: 07/12/17 02:49 Dextrose/Water (Dextrose 5% In Water) Confirm Administered Dose 250 mls @ as directed .ROUTE .[facility] ONE Stop: 07/12/17 03:50 Last Admin: 07/12/17 04:04 Dose: Not Given Dextrose/Water (Dextrose 5% In Water) Confirm Administered Dose 250 mls @ as directed .ROUTE .[facility] ONE Stop: 07/12/17 04:30 Influenza Virus Vaccine (Fluzone Quad 0501-4089) 60 mcg IM .ONCE ONE Stop: 07/10/17 06:31 Last Admin: 07/10/17 12:24 Dose: Not Given Insulin Aspart (Novolog) 5 unit SUBCUT ONETIME ONE Stop: 07/10/17 10:16 Last Admin: 07/10/17 10:12 Dose: 5 units Insulin Aspart (Novolog) 0 unit SUBCUT ONETIME STA Stop: 07/10/17 22:23 Last Admin: 07/10/17 22:43 Dose: 20 units Insulin Detemir (Levemir) 35 unit SUBCUT BEDTIME [facility] Last Admin: 07/11/17 06:22 Dose: Not Given Insulin Detemir (Levemir) 0 unit SUBCUT ONETIME ONE Stop: 07/10/17 22:28 Last Admin: 07/10/17 22:43 Dose: 45 units Iohexol (Omnipaque-300) 50 ml PO .ASDIRECTED STA Stop: 07/11/17 03:45 Last Admin: 07/11/17 03:56 Dose: 50 ml Ketamine HCl (Ketalar) 30 mg IV ASDIRECTED [facility] Lidocaine HCl (Xylocaine 2%) 145 mg IVPUSH ONETIME ONE Stop: 07/10/17 07:31 Last Admin: 07/10/17 12:23 Dose: Not Given Methylprednisolone Sodium Succinate (Solu-Medrol) 125 mg IVPUSH ONETIME ONE Stop: 07/12/17 03:59 Last Admin: 07/12/17 04:15 Dose: 125 mg Neostigmine Methylsulfate (Neostigmine) Confirm Administered Dose 5 mg .ROUTE .STK-MED ONE Stop: 07/10/17 07:05 Ondansetron HCl (Zofran) Confirm Administered Dose 4 mg .ROUTE .STK-MED ONE Stop: 07/10/17 07:05 Pantoprazole Sodium (Protonix Iv) 40 mg IVPUSH Q24H ROB Last Admin: 07/11/17 13:55 Dose: 40 mg Phenylephrine HCl (Ran-Synephrine) Confirm Administered Dose 10 mg .ROUTE .STK- MED ONE Stop: 07/10/17 08:52 Propofol (Diprivan 20 Ml) Confirm Administered Dose 200 mg .ROUTE .STK-MED ONE Stop: 07/10/17 07:05 Propofol (Diprivan 20 Ml) 100 mg IVPUSH ONETIME ONE Stop: 07/12/17 02:31 Last Admin: 07/12/17 04:24 Dose: Not Given Propofol (Diprivan 20 Ml) 100 mg IVPUSH ONETIME ONE Stop: 07/12/17 02:41 Last Admin: 07/12/17 04:25 Dose: Not Given Rocuronium [place] (Zemuron) Confirm Administered Dose 50 mg .ROUTE .STK-MED ONE Stop: 07/10/17 07:05 Rocuronium [place] (Zemuron) Confirm Administered Dose 50 mg .ROUTE .STK-MED ONE Stop: 07/10/17 08:57 Rocuronium [place] (Zemuron) 15 mg IV ONETIME ONE Stop: 07/12/17 02:31 Last Admin: 07/12/17 04:24 Dose: Not Given Scopolamine (Transderm-Scop) 1.5 mg TRDERM ONETIME ONE Stop: 07/10/17 06:01 Last Admin: 07/10/17 06:22 Dose: 1.5 mg Succinylcholine Chloride (Quelicin) Confirm Administered Dose 200 mg .ROUTE .STK -MED ONE Stop: 07/10/17 07:05 Vasopressin (Vasopressin) Confirm Administered Dose 100 units .ROUTE .STK-MED ONE Stop: 07/12/17 04:29 - Problem List Review Problem List Initiated/Reviewed/Updated: No - My Orders Last 24 Hours: My Active Orders 07/12/17 03:26 Desired Level of Sedation (RASS) [AST] Click to Edit 07/12/17 03:30 Propofol [Diprivan 100 ML] 100 ml IV TITRATE
--- NOTE | 2017-07-12 04:41 | PCM.PRNOTE ---
- Free Text/Narrative Note: Patient requiring intubation for respiratory failure and suspected CHF Patient is receiving oxygen via facemask but inadequate respirations, decreased level of consciousness respiratory failure Through already established IV access, patient was given vecuronium 15 mg and propofol 100 mg for paralysis and sedation respectively. Endotracheal intubation achieved after suctioning, using a bougie in passing the endotracheal tube over the bougie, 7.5 size ET tube Relatively easy intubation ET tube secured with 25 mm at the teeth Chest x-ray for positioning to be obtained in ICU Color on colorimetry change using CO2 detector was positive, saturation barbara to 93%, and breath sounds are heard all lung phillips. Endotracheal intubation obtained without complication
[2017-07-12] MEDS: Vasopressin 100 UNITS in Dextrose 5% in Water 250 ML IV SCH ×2 (04:48)
[2017-07-12] MEDS ORDERED: Sodium Chloride 0.9% 1,000 ML IV SCH (05:00)
[2017-07-12] MEDS: Meropenem 1 GM in Sodium Chloride 0.9% 100 ML IV SCH ×3 (05:23→20:05)
[2017-07-12] MEDS: Heparin Sodium 5,000 Units/ML Vial SUBCUT SCH ×2 (05:29→17:01)
[2017-07-12] MEDS: Sodium Chloride 0.9% 1,000 ML IV SCH ×2 (06:00→08:04)
[2017-07-12] MEDS: Heparin Sodium 5,000 UNITS in Sodium Chloride 0.9% 500 ML IV SCH ×2 (06:00→10:00)
[2017-07-12] MEDS: Magnesium Sulfate/Water 2 GM in Premix Bag 1 BAG IV SCH ×4 (06:06→22:04)
[2017-07-12] MEDS ORDERED: Heparin Sodium 5,000 UNITS in Sodium Chloride 0.9% 500 ML IV SCH (07:45)
[2017-07-12] MEDS: Levothyroxine 75 MCG Tab PO SCH (08:06)
[2017-07-12] MEDS: Celecoxib 200 MG Cap PO SCH (08:06)
--- NOTE | 2017-07-12 08:58 | CR ---
CHEST: AP portable time 2:55 at 07/12/2017 and 2:56 on 07/12/2017 CLINICAL HISTORY:History stated is central line placement COMPARISON:None FINDINGS: Patient has been intubated. The endotracheal tube is in the origin of the right mainstem b ronchus. There are diffuse bilateral pulmonary infiltrates most consistent with pulmonary edema. The heart size is normal. Pulmonary vascularity is obscured. IMPRESSION: Endotracheal intubation with the ET tube in the right mainstem bronchus Diffuse bilateral pulmonary infiltrates most consistent with pulmonary edema. Aspiration is felt less likely but can't be excluded. The clinical history stated "central line placement." No subclavian or jugular central venous lines a re seen.
[2017-07-12] MEDS ORDERED: Naloxone 0.4 MG/ML SDV IV PRN (08:59)
[2017-07-12] MEDS ORDERED: HYDROmorphone/Normal Saline 15 MG/30 ML PCA IV PRN (08:59)
[2017-07-12] MEDS ORDERED: Cyanocobalamin (Vitamin B12) 1,000 MCG/ML SDV IM ONE (09:00)
--- NOTE | 2017-07-12 09:01 | CR ---
CHEST: AP portable dated 07/12/2017 time to 7:22 AM CLINICAL HISTORY:Shortness of breath COMPARISON:Earlier same day FINDINGS: Endotracheal tube is been withdrawn into the mid trachea approximately 4 cm from the jose na. There is a left subclavian catheter. The tip is in the superior vena cava. There are dense bilate ral pulmonary infiltrates with perihilar prominence. Findings are most consistent with pulmonary aspen a. This has increased since prior study. IMPRESSION: Endotracheal tube and left subclavian catheter in good position Increasing diffuse bilateral pulmonary infiltrates most consistent with pulmonary edema
[2017-07-12] MEDS: CHECK SCOPOLAMINE PATCH DAILY TOP SCH (09:13)
[2017-07-12] MEDS: Ketoconazole 2% Crm 30 GM Tube TOP SCH ×2 (09:20→20:36)
[2017-07-12] MEDS ORDERED: Nitroglycerin 2% Oint 1 GM UD Packet ONE (09:59)
[2017-07-12] MEDS ORDERED: Nitroglycerin 2% Oint 1 GM UD Packet TOP ONE (09:59)
[2017-07-12] MEDS ORDERED: Metoprolol Tartrate 5 MG/5 ML SDV IV SCH (10:00)
[2017-07-12] MEDS ORDERED: Bumetanide 1 MG/4 ML MDV IVPUSH ONE (10:07)
[2017-07-12] MEDS: Insulin Aspart 100 Units/ML 3 ML Pen SUBCUT PRN ×2 (10:40→16:03)
[2017-07-12] MEDS ORDERED: FLU Vacc QS 2017-18 (36mos UP)/PF 60 MCG/0.5 ML Syringe IM ONE (11:30)
[2017-07-12] MEDS ORDERED: Pantoprazole 40 MG Delayed-Release Granules 1 Packet PO SCH (11:30)
--- NOTE | 2017-07-12 11:34 | ANES ---
DATE OF SERVICE: 07/12/2017 TIME: 0245 hours. INDICATION: I was called into the intensive care unit for a respiratory distress presentation by the patient. When I got here, the patient was intubated by the ER physician. They wished to have an arterial line placed. I did place a left radial 20-gauge Arrow arterial line. TECHNIQUE: Her arm was prepped with chlorhexidine and 1% lidocaine skin wheal was used. The arterial line had very good waveform and good blood return. It was sutured with 2-0 Prolene. It was dressed with Tegaderm and tape. They also were having a tough time with peripheral IV access, so I put in an 18-gauge IV into the right ankle area. I did attempt approximately 6 times in both arms and could not get either IV access there. I talked to the staff and Dr. Steele about having Dr. Sunshine put in a triple-lumen subclavian catheter in the morning. Dipak Bell CRNA /[id number]
[2017-07-12] MEDS ORDERED: Lactated Ringers 500 ML IV ONE (15:51)
--- NOTE | 2017-07-12 15:52 | OR ---
DATE OF PROCEDURE: 07/12/2017 PREOPERATIVE DIAGNOSIS: Indication for central venous access. POSTOPERATIVE DIAGNOSIS: Indication for central venous access. OPERATIVE PROCEDURE: Insertion of left subclavian vein triple-lumen catheter. ANESTHESIA: Local. INDICATION FOR PROCEDURE: The patient is presently in the intensive care, requiring multiple IV sites with limited peripheral venous access, also meets indications for central venous pressure monitoring. Therefore, a central line is to be placed. Her significant other was involved in the discussion of the risks, and he wished to proceed. DETAILS OF PROCEDURE: In the ICU bed, the upper chest and neck areas were prepped and draped. The left subclavian area was anesthetized with 1% lidocaine. Left subclavian vein was cannulated. A guidewire was passed and over the guidewire, a triple-lumen catheter was positioned. Good in and outflow was noted. The ports were flushed with heparinized saline. The catheter was sutured to the skin with some 3-0 silk stitch and dressing applied. Chest x-ray showed good catheter position with no evidence of complications. Manuel Sunshine MD /[id number]
[2017-07-12] MEDS: DOBUTamine/Dextrose 5%-Water 250 MG/250 ML BAG IV SCH ×2 (17:01→22:30)
[2017-07-12] MEDS: Insulin Aspart 100 Units/ML 3 ML Pen SUBCUT SCH (22:09)
[2017-07-12] MEDS ORDERED: Sodium Polystyrene Sulfonate 15 GM/60 ML Susp 60 ML Bot RECTAL ONE (23:40)
[2017-07-12] MEDS ORDERED: Insulin Aspart 100 Units/ML 3 ML Pen SUBCUT ONE (23:40)
[2017-07-13] MEDS: DOBUTamine/Dextrose 5%-Water 250 MG/250 ML BAG IV SCH ×3 (01:46→08:29)
[2017-07-13] MEDS: Norepinephrine 4 MG in Dextrose 5% in Water 246 ML IV SCH ×4 (01:50→05:29)
[2017-07-13] MEDS ORDERED: Lactated Ringers 1,000 ML IV SCH (02:15)
--- NOTE | 2017-07-13 02:24 | PCM.SN ---
- Free Text/Narrative Note: I was called to see Ms. Gaston early this morning by nursing staff, she has experienced progressive decline throughout the day requiring increasing levels of IV pressors to maintain blood pressure. Despite maximal doses of vasopressin and norepinephrine this evening has had suboptimal blood pressures with systolic pressures in the 80s and mean arterial pressures between 55 and 60. CVP has remained significantly elevated and oxygenation has remained borderline despite fairly maximal support through the ventilator. Labs were obtained in the evening and she was found to have significant hyperkalemia. We are unable to place NG tube because of her recent gastric bypass surgery, 45 g of Kayexalate were ordered per rectum. She was moved to give the Kayexalate suddenly became very bradycardic and hypotensive with decreased oxygen saturations. officer from the emergency department was kind enough to see her until I was able to come in from home. She was given further IV fluids and leg for ventilation. With these interventions she slowly responded and is now back on the ventilator with saturations in the low 90s. Blood pressure remains very low despite ongoing interventions. I did attempt to contact family concerning her progressive decline in extremely poor prognosis but was unable to reach anyone. One hour of critical care time was spent in the direct care and management of this patient in the intensive care unit early this morning.
[2017-07-13] MEDS: Insulin Aspart 100 Units/ML 3 ML Pen SUBCUT SCH (03:41)
[2017-07-13] MEDS: Meropenem 1 GM in Sodium Chloride 0.9% 100 ML IV SCH (04:31)
[2017-07-13] MEDS: Magnesium Sulfate/Water 2 GM in Premix Bag 1 BAG IV SCH ×4 (05:02→22:02)
[2017-07-13] MEDS: Heparin Sodium 5,000 Units/ML Vial SUBCUT SCH ×2 (05:44→17:03)
[2017-07-13] MEDS ORDERED: Sodium Polystyrene Sulfonate 15 GM/60 ML Susp 60 ML Bot RECTAL ONE (06:33)
[2017-07-13] MEDS ORDERED: Insulin Aspart 100 Units/ML 3 ML Pen SUBCUT ONE (06:34)
[2017-07-13] MEDS: Albuterol/Ipratropium 3.0-0.5 MG/3 ML Neb Soln INH SCH ×4 (07:04→20:04)
--- NOTE | 2017-07-13 07:20 | PN ---
DATE OF SERVICE: 07/12/2017 During the night, the patient appeared to have an episode of aspiration and had abrupt onset of pulmonary deterioration. She was intubated and subsequently was placed on a ventilator. Presently, she is on 100% FiO2 with an AC of 16 breathing just above that rate, has O2 sats in the 88% to 90% range. Peak vent pressure, with a tidal volume of 450 mL, is around 30. Chest x-ray does show a pattern suggestive of an ARDS-type picture. The BNP has not been overly elevated. Initially, it was thought that she might have some degree of pulmonary edema, but that appears not to be the case, and likewise, her cardiac workup from any ischemic issue has been negative. A central line was just placed, and we will measure CVPs with that as well. Otherwise, we will obtain a sputum for Gram stain and C&S at this point, empirically continue meropenem and clindamycin, which were started per Dr. Steele overnight. I think we will add a Dilaudid HIGH PRESSURE KETTLE OPERATOR today and then replace her Lopressor with some IV metoprolol and otherwise continue management with the assistance of Dr. Steele. Mnauel Sunshine MD /[id number]
[2017-07-13] MEDS: Vasopressin 100 UNITS in Dextrose 5% in Water 250 ML IV SCH ×2 (08:31)
[2017-07-13] MEDS: CHECK SCOPOLAMINE PATCH DAILY TOP SCH (08:33)
[2017-07-13] MEDS: Linezolid 600 MG in Premix Bag 1 BAG IV SCH ×2 (08:35→20:43)
--- NOTE | 2017-07-13 09:12 | CR ---
CHEST: AP supine portable CLINICAL HISTORY:Respiratory failure, intubation COMPARISON:07/12/2017 FINDINGS: The endotracheal tube remains in the mid to distal trachea. There is a central venous cath eter in the superior vena cava innominate junction. There are persistent diffuse bilateral pulmonary infiltrates. These have decreased slightly since 07/12 redistribution is more symmetric. IMPRESSION: Persistent moderate diffuse bilateral pulmonary infiltrates with slight improvement sinc e prior study. Now with further clinical information, infiltrates are more likely due to aspiration
[2017-07-13] MEDS: Ketoconazole 2% Crm 30 GM Tube TOP SCH ×2 (09:17→20:44)
--- NOTE | 2017-07-13 09:39 | PCM.CONSN ---
- General Info Date of Service: 07/13/17 Subjective Update: Ms. Gaston remains critically ill with severe respiratory and hemodynamic compromise. Currently requiring maximal doses of norepinephrine and vasopressin to maintain blood pressures and ongoing aggressive ventilatory support to maintain oxygenation. Chest x-ray shows bilateral infiltrates consistent with ARDS versus CHF. She is developed acute on chronic kidney failure with decreased urine output. She will sedated and unable to provide further information concerning symptoms review systems. - Patient Data Vitals - Most Recent: Last Vital Signs Temp 99.8 F 07/13/17 09:00 Pulse 87 07/13/17 09:00 Resp 26 H 07/13/17 09:00 BP 98/49 L 07/13/17 09:12 Pulse Ox 88 L 07/13/17 09:00 Weight - Most Recent: 383 lb I&O - Last 24 Hours: Intake & Output 07/12/17 07/13/17 07/13/17 22:59 06:59 14:59 Intake Total 1449 3879 Output Total 146 201 30 Balance 1303 3678 -30 Lab Results Last 24 Hours: Laboratory Results - last 24 hr 07/10/17 07/12/17 07/12/17 Range/Units 06:00 10:00 16:59 WBC 12.4 H (4.5-11.0) K/uL RBC 3.62 (3.30-5.50) M/uL Hgb 10.5 L (12.0-15.0) g/dL Hct 32.8 L (36.0-48.0) % MCV 91 (80-98) fL MCH 29 (27-31) pg MCHC 32 (32-36) % Plt Count 194 (150-400) K/uL Puncture Site ABG pH (7.350-7.450) ABG pCO2 (35.0-42.0) mmHg ABG pO2 (75.0-100.0) mmHg ABG HCO3 (22.0-26.0) mmol/L ABG Total CO2 (21.0-25.0) mmol/L ABG O2 Saturation (95.0-98.0) % ABG O2 Content (15.0-23.0) %vol ABG Base Excess mm/L ABG Hemoglobin (12.0-16.0) g/dL ABG Oxyhemoglobin % ABG Carboxyhemoglobin (0.0-1.6) % ABG Methemoglobin % [place] Test O2 Delivery Device Oxygen Flow Rate L Sodium (140-148) mmol/L Potassium (3.6-5.2) mmol/L Chloride (100-108) mmol/L Carbon Dioxide (21-32) mmol/L Anion Gap (5.0-14.0) mmol/L BUN (7-18) mg/dL Creatinine (0.6-1.0) mg/dL Est Cr Clr Drug Dosing mL/min Estimated GFR (MDRD) (>60) Glucose (74-106) mg/dL Calcium (8.5-10.1) mg/dL Phosphorus (2.5-4.9) mg/dL Magnesium (1.8-2.4) mg/dL Total Bilirubin (0.2-1.0) mg/dL AST (15-37) U/L ALT (12-78) U/L Alkaline Phosphatase (46-116) U/L CK-MB (CK-2) (0-3.6) mg/mL Troponin I < 0.017 (0.000-0.056) ng/mL NT-Pro-B Natriuret Pep (5-125) pg/mL Total Protein (6.4-8.2) g/dL Albumin (3.4-5.0) g/dL Globulin (2.3-3.5) g/dL Albumin/Globulin Ratio (1.2-2.2) Antibody Identification Anti-D 07/12/17 07/12/17 07/12/17 Range/Units 16:59 16:59 23:06 WBC (4.5-11.0) K/uL RBC (3.30-5.50) M/uL Hgb (12.0-15.0) g/dL Hct (36.0-48.0) % MCV (80-98) fL MCH (27-31) pg MCHC (32-36) % Plt Count (150-400) K/uL Puncture Site Line A-line ABG pH 7.228 L 7.251 L (7.350-7.450) ABG pCO2 45.3 H 40.4 (35.0-42.0) mmHg ABG pO2 67.3 L 62.1 L (75.0-100.0) mmHg ABG HCO3 18.2 L 17.1 L (22.0-26.0) mmol/L ABG Total CO2 17.5 L 16.4 L (21.0-25.0) mmol/L ABG O2 Saturation 90.6 L 88.9 L (95.0-98.0) % ABG O2 Content 13.1 L 12.7 L (15.0-23.0) %vol ABG Base Excess -8.6 -9.0 mm/L ABG Hemoglobin 10.4 L 10.3 L (12.0-16.0) g/dL ABG Oxyhemoglobin 89.2 86.9 % ABG Carboxyhemoglobin 0.8 1.2 (0.0-1.6) % ABG Methemoglobin 0.8 1.0 % [place] Test TNP A-line O2 Delivery Device Ventilator Ventilator Oxygen Flow Rate 100 L Sodium (140-148) mmol/L Potassium (3.6-5.2) mmol/L Chloride (100-108) mmol/L Carbon Dioxide (21-32) mmol/L Anion Gap (5.0-14.0) mmol/L BUN (7-18) mg/dL Creatinine (0.6-1.0) mg/dL Est Cr Clr Drug Dosing mL/min Estimated GFR (MDRD) (>60) Glucose (74-106) mg/dL Calcium (8.5-10.1) mg/dL Phosphorus (2.5-4.9) mg/dL Magnesium (1.8-2.4) mg/dL Total Bilirubin (0.2-1.0) mg/dL AST (15-37) U/L ALT (12-78) U/L Alkaline Phosphatase (46-116) U/L CK-MB (CK-2) (0-3.6) mg/mL Troponin I (0.000-0.056) ng/mL NT-Pro-B Natriuret Pep 2925 H (5-125) pg/mL Total Protein (6.4-8.2) g/dL Albumin (3.4-5.0) g/dL Globulin (2.3-3.5) g/dL Albumin/Globulin Ratio (1.2-2.2) Antibody Identification 07/12/17 07/13/17 07/13/17 Range/Units 23:06 00:40 00:40 WBC (4.5-11.0) K/uL RBC (3.30-5.50) M/uL Hgb (12.0-15.0) g/dL Hct (36.0-48.0) % MCV (80-98) fL MCH (27-31) pg MCHC (32-36) % Plt Count (150-400) K/uL Puncture Site A-line ABG pH 7.139 L* (7.350-7.450) ABG pCO2 49.3 H (35.0-42.0) mmHg ABG pO2 71.7 L (75.0-100.0) mmHg ABG HCO3 16.0 L (22.0-26.0) mmol/L ABG Total CO2 15.9 L (21.0-25.0) mmol/L ABG O2 Saturation 89.8 L (95.0-98.0) % ABG O2 Content 12.4 L (15.0-23.0) %vol ABG Base Excess -12.3 mm/L ABG Hemoglobin 10.0 L (12.0-16.0) g/dL ABG Oxyhemoglobin 88.0 % ABG Carboxyhemoglobin 1.2 (0.0-1.6) % ABG Methemoglobin 0.8 % [place] Test A-line O2 Delivery Device Ventilator Oxygen Flow Rate L Sodium 133 L (140-148) mmol/L Potassium 6.3 H* (3.6-5.2) mmol/L Chloride 102 (100-108) mmol/L Carbon Dioxide 19 L (21-32) mmol/L Anion Gap 18.3 H (5.0-14.0) mmol/L BUN 36 H (7-18) mg/dL Creatinine 2.8 H D (0.6-1.0) mg/dL Est Cr Clr Drug Dosing 17.53 mL/min Estimated GFR (MDRD) 17 L (>60) Glucose 416 H* (74-106) mg/dL Calcium 7.5 L (8.5-10.1) mg/dL Phosphorus (2.5-4.9) mg/dL Magnesium (1.8-2.4) mg/dL Total Bilirubin (0.2-1.0) mg/dL AST (15-37) U/L ALT (12-78) U/L Alkaline Phosphatase (46-116) U/L CK-MB (CK-2) 1.5 (0-3.6) mg/mL Troponin I 0.389 H* (0.000-0.056) ng/mL NT-Pro-B Natriuret Pep (5-125) pg/mL Total Protein (6.4-8.2) g/dL Albumin (3.4-5.0) g/dL Globulin (2.3-3.5) g/dL Albumin/Globulin Ratio (1.2-2.2) Antibody Identification 07/13/17 07/13/17 07/13/17 Range/Units 02:28 04:00 04:00 WBC 10.0 (4.5-11.0) K/uL RBC 3.41 (3.30-5.50) M/uL Hgb 9.7 L (12.0-15.0) g/dL Hct 30.8 L (36.0-48.0) % MCV 90 (80-98) fL MCH 28 (27-31) pg MCHC 32 (32-36) % Plt Count 144 L (150-400) K/uL Puncture Site A-line ABG pH 7.205 L* (7.350-7.450) ABG pCO2 43.3 H (35.0-42.0) mmHg ABG pO2 67.7 L (75.0-100.0) mmHg ABG HCO3 16.5 L (22.0-26.0) mmol/L ABG Total CO2 16.1 L (21.0-25.0) mmol/L ABG O2 Saturation 90.1 L (95.0-98.0) % ABG O2 Content 12.3 L (15.0-23.0) %vol ABG Base Excess -10.5 mm/L ABG Hemoglobin 9.8 L (12.0-16.0) g/dL ABG Oxyhemoglobin 88.8 % ABG Carboxyhemoglobin 0.5 (0.0-1.6) % ABG Methemoglobin 0.9 % [place] Test A-line O2 Delivery Device Ventilator Oxygen Flow Rate L Sodium 131 L (140-148) mmol/L Potassium 6.3 H* (3.6-5.2) mmol/L Chloride 101 (100-108) mmol/L Carbon Dioxide 15 L (21-32) mmol/L Anion Gap 21.3 H (5.0-14.0) mmol/L BUN 39 H (7-18) mg/dL Creatinine 3.4 H (0.6-1.0) mg/dL Est Cr Clr Drug Dosing 14.44 mL/min Estimated GFR (MDRD) 14 L (>60) Glucose 442 H* (74-106) mg/dL Calcium 7.0 L (8.5-10.1) mg/dL Phosphorus 6.2 H (2.5-4.9) mg/dL Magnesium 3.3 H D (1.8-2.4) mg/dL Total Bilirubin 0.8 (0.2-1.0) mg/dL AST 459 H D (15-37) U/L ALT 359 H (12-78) U/L Alkaline Phosphatase 68 (46-116) U/L CK-MB (CK-2) (0-3.6) mg/mL Troponin I (0.000-0.056) ng/mL NT-Pro-B Natriuret Pep 37036 H (5-125) pg/mL Total Protein 5.1 L (6.4-8.2) g/dL Albumin 2.0 L (3.4-5.0) g/dL Globulin 3.1 (2.3-3.5) g/dL Albumin/Globulin Ratio 0.7 L (1.2-2.2) Antibody Identification 07/13/17 Range/Units 04:00 WBC (4.5-11.0) K/uL RBC (3.30-5.50) M/uL Hgb (12.0-15.0) g/dL Hct (36.0-48.0) % MCV (80-98) fL MCH (27-31) pg MCHC (32-36) % Plt Count (150-400) K/uL Puncture Site A-line ABG pH 7.246 L (7.350-7.450) ABG pCO2 35.0 (35.0-42.0) mmHg ABG pO2 112.0 H (75.0-100.0) mmHg ABG HCO3 14.7 L (22.0-26.0) mmol/L ABG Total CO2 14.1 L (21.0-25.0) mmol/L ABG O2 Saturation 97.4 (95.0-98.0) % ABG O2 Content 13.1 L (15.0-23.0) %vol ABG Base Excess -11.3 mm/L ABG Hemoglobin 9.7 L (12.0-16.0) g/dL ABG Oxyhemoglobin 95.4 % ABG Carboxyhemoglobin 1.3 (0.0-1.6) % ABG Methemoglobin 0.8 % [place] Test A-line O2 Delivery Device Ventilator Oxygen Flow Rate L Sodium (140-148) mmol/L Potassium (3.6-5.2) mmol/L Chloride (100-108) mmol/L Carbon Dioxide (21-32) mmol/L Anion Gap (5.0-14.0) mmol/L BUN (7-18) mg/dL Creatinine (0.6-1.0) mg/dL Est Cr Clr Drug Dosing mL/min Estimated GFR (MDRD) (>60) Glucose (74-106) mg/dL Calcium (8.5-10.1) mg/dL Phosphorus (2.5-4.9) mg/dL Magnesium (1.8-2.4) mg/dL Total Bilirubin (0.2-1.0) mg/dL AST (15-37) U/L ALT (12-78) U/L Alkaline Phosphatase (46-116) U/L CK-MB (CK-2) (0-3.6) mg/mL Troponin I (0.000-0.056) ng/mL NT-Pro-B Natriuret Pep (5-125) pg/mL Total Protein (6.4-8.2) g/dL Albumin (3.4-5.0) g/dL Globulin (2.3-3.5) g/dL Albumin/Globulin Ratio (1.2-2.2) Antibody Identification Miguel Results Last 24 Hours: Microbiology 07/12/17 09:09 Gram Stain - Final Endotracheal Respiratory Culture - Preliminary NORMAL RESPIRATORY BRODIE 1 DAY Med Orders - Current: Current Medications Albuterol/Ipratropium (Duoneb 3.0-0.5 Mg/3 Ml) 3 ml INH QIDRT ROB Last Admin: 07/13/17 07:04 Dose: 3 ml Albuterol/Ipratropium (Duoneb 3.0-0.5 Mg/3 Ml) 3 ml INH ASDIRECTED PRN PRN Reason: BREATHING Last Admin: 07/13/17 00:30 Dose: 3 ml Dextrose/Water (Dextrose 50% In Water) 50 ml IVPUSH ONETIME PRN PRN Reason: ACCUCHECK LESS THAN 70 Diphenhydramine HCl (Benadryl) 25 - 50 mg IVPUSH Q4H PRN PRN Reason: ITCHING Glucagon (Glucagen) 1 mg IM ONETIME PRN PRN Reason: ACCUCHECK LESS THAN 70 Heparin Sodium (Porcine) (Heparin Sodium) 5,000 units SUBCUT Q12H [facility] Last Admin: 07/13/17 05:44 Dose: 5,000 units Heparin Sodium (Porcine) (Heparin Lock Flush 100 Units/Ml) 500 units IVPUSH ASDIRECTED PRN 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 Hydromorphone HCl (Dilaudid Logistics Assistant 15 Mg In Ns 30 Ml) 0 mg IV ASDIRECTED PRN; Protocol 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 Last Admin: 07/12/17 10:01 Dose: 15 mg Hydroxyzine HCl (Vistaril) 75 - 100 mg IM Q4H PRN PRN Reason: pain Lactated Ringer's (Ringers, Lactated) 1,000 mls @ 100 mls/hr IV ASDIRECTED ROB Last Admin: 07/11/17 08:20 Dose: 100 mls/hr Magnesium Sulfate 2 gm/ Premix 50 mls @ 25 mls/hr IV Q6H [facility] Stop: 07/14/17 05:59 Last Admin: 07/13/17 05:02 Dose: 25 mls/hr Propofol (Diprivan 100 Ml) 100 mls @ 4.776 mls/hr IV TITRATE ROB; 5 MCG/KG/MIN PRN Reason: Protocol Last Admin: 07/13/17 03:16 Dose: 15 mcg/kg/min, 14.329 mls/hr Heparin Sodium (Porcine) 5,000 (units/ Sodium Chloride) 501 mls @ 5 mls/hr IV ASDIRECTED [facility] Meropenem 1 gm/ Sodium (Chloride) 100 mls @ 200 mls/hr IV Q8H [facility] Last Admin: 07/13/17 04:31 Dose: 200 mls/hr Vasopressin 100 units/ (Dextrose/Water) 255 mls @ 4.59 mls/hr IV TITRATE ROB; 0.03 UNITS/MIN PRN Reason: Protocol Last Admin: 07/13/17 08:31 Dose: 0.16 units/min, 24.48 mls/hr Heparin Sodium (Porcine) 5,000 (units/ Sodium Chloride) 501 mls @ 1 mls/hr IV ASDIRECTED ROB Sodium Chloride (Normal Saline) 1,000 mls @ 250 mls/hr IV ASDIRECTED ROB Last Infusion: 07/12/17 08:24 Dose: 0 mls/hr Dobutamine HCl/Dextrose (Dobutamine In D5w 250 Mg/250 Ml) 250 mg in 250 mls @ 19.105 mls/hr IV TITRATE ROB; 2 MCG/KG/MIN PRN Reason: Protocol Last Admin: 07/13/17 08:29 Dose: 8 mcg/kg/min, 76.421 mls/hr Linezolid 600 mg/ Premix 300 mls @ 300 mls/hr IV Q12H ROB Last Admin: 07/13/17 08:35 Dose: 300 mls/hr Norepinephrine Bitartrate 16 (mg/ Dextrose/Water) 500 mls @ 3.75 mls/hr IV TITRATE ROB; 2 MCG/MIN PRN Reason: Protocol Last Admin: 07/13/17 09:12 Dose: 20 mcg/min, 37.5 mls/hr Insulin Human Regular 100 unit (/ Sodium Chloride) 100 mls @ 0.5 mls/hr IV TITRATE ROB; 0.5 UNITS/HR PRN Reason: Protocol Ketoconazole (Nizoral 2% Crm) 0 gm TOP BID ROB Last Admin: 07/13/17 09:17 Dose: 1 applic Labetalol HCl (Normodyne) 5 - 15 mg IVPUSH Q1H PRN PRN Reason: SBP over 160 OR DBP over 95 Metoclopramide HCl (Reglan) 10 mg IVPUSH Q6H PRN PRN Reason: NAUSEA NOT CONTROL BY ZOFRAN Naloxone HCl (Narcan) 0.1 mg IV ASDIRECTED PRN PRN Reason: decreased respiratory rate Check Scopolamine (Patch Daily) 1 each TOP DAILY ROB Last Admin: 07/13/17 08:33 Dose: Not Given Ondansetron HCl (Zofran) 4 mg IVPUSH Q4H PRN PRN Reason: Nausea/Vomiting Last Admin: 07/11/17 09:06 Dose: 4 mg Discontinued Medications Acetaminophen (Tylenol Extra Strength) 1,000 mg PO ONETIME ONE Stop: 07/10/17 05:52 Last Admin: 07/10/17 06:22 Dose: 1,000 mg Acetaminophen (Tylenol) 650 mg PO Q6H [facility] Last Admin: 07/12/17 08:06 Dose: Not Given Albuterol/Ipratropium (Duoneb 3.0-0.5 Mg/3 Ml) 3 ml NEB ONETIME ONE Stop: 07/10/17 06:24 Last Admin: 07/10/17 07:14 Dose: 3 ml Aspirin (Ecotrin) 325 mg PO ONETIME ONE Stop: 07/10/17 07:16 Last Admin: 07/10/17 07:25 Dose: 325 mg Aspirin (Aspirin) 324 mg PO DAILY [facility] Last Admin: 07/11/17 08:27 Dose: 324 mg Baclofen (Lioresal) 10 mg PO TID [facility] Last Admin: 07/11/17 21:07 Dose: 10 mg Bumetanide (Bumex) 2 mg IVPUSH ONETIME ONE Stop: 07/12/17 10:08 Last Admin: 07/12/17 10:26 Dose: 2 mg Bupropion HCl (Wellbutrin Sr) 150 mg PO BID [facility] Last Admin: 07/11/17 21:08 Dose: 150 mg Cefoxitin Sodium (Mefoxin) Confirm Administered Dose 2 gm .ROUTE .STK-MED ONE Stop: 07/10/17 06:43 Last Admin: 07/10/17 08:17 Dose: 2 gm Celecoxib (Celebrex) 200 mg PO ONETIME ONE Stop: 07/10/17 05:52 Last Admin: 07/10/17 06:21 Dose: 200 mg Celecoxib (Celebrex) 200 mg PO DAILY@0800 [facility] Last Admin: 07/12/17 08:06 Dose: Not Given Ropivacaine 60 ml/Dexamethasone 8 mg/Epinephrine HCl 0.4 mg/ Sodium Chloride 17.6 ml 0 ml NERVRT ASDIRECTED [facility] Last Admin: 07/10/17 08:06 Dose: 80 syringe Cyanocobalamin (Vitamin B12) 1,000 mcg IM ONETIME ONE Stop: 07/12/17 09:01 Last Admin: 07/12/17 09:20 Dose: 1,000 mcg Dexamethasone (Dexamethasone) Confirm Administered Dose 4 mg .ROUTE .STK-MED ONE Stop: 07/10/17 07:05 Ephedrine Sulfate (Ephedrine Sulfate) Confirm Administered Dose 50 mg .ROUTE .STK-MED ONE Stop: 07/10/17 07:53 Fentanyl (Sublimaze) Confirm Administered Dose 250 mcg .ROUTE .STK-MED ONE Stop: 07/10/17 07:05 Fluoxetine HCl (Prozac) 60 mg PO DAILY [facility] Last Admin: 07/11/17 08:27 Dose: 60 mg Furosemide (Lasix) 40 mg IVPUSH ONETIME STA Stop: 07/12/17 01:54 Last Admin: 07/12/17 02:06 Dose: 40 mg Furosemide (Lasix) Confirm Administered Dose 40 mg .ROUTE .STK-MED ONE Stop: 07/12/17 01:58 Last Admin: 07/12/17 04:02 Dose: 40 mg Gabapentin (Neurontin) 300 mg PO ONETIME ONE Stop: 07/10/17 05:52 Last Admin: 07/10/17 06:21 Dose: 300 mg Gabapentin (Neurontin) 300 mg PO TID [facility] Last Admin: 07/11/17 08:26 Dose: 300 mg Glycopyrrolate (Robinul) Confirm Administered Dose 1 mg .ROUTE .STK-MED ONE Stop: 07/10/17 07:05 Heparin Sodium (Porcine) (Heparin Sodium) Confirm Administered Dose 5,000 units .ROUTE .STK-MED ONE Stop: 07/12/17 02:38 Last Admin: 07/12/17 04:03 Dose: 5,000 units Hydrochlorothiazide (Hydrochlorothiazide) 25 mg PO DAILY [facility] Last Admin: 07/11/17 08:24 Dose: 25 mg Hydroxyzine HCl (Vistaril) 100 mg IM ONETIME ONE Stop: 07/10/17 10:40 Last Admin: 07/10/17 10:42 Dose: 100 mg Lidocaine HCl/Dextrose (Lidocaine 2 Gm/D5w 500 Ml) 2 gm in 500 mls @ 30 mls/hr IV .[id number] [facility] PRN Reason: 2 MG/MIN Stop: 07/11/17 10:00 Last Admin: 03/05/18 12:21 Dose: 2 mg/min, 30 mls/hr Ketamine HCl 100 mg/ Sodium (Chloride) 100 mls @ 16.5 mls/hr IV ASDIRECTED [facility] PRN Reason: 5 MCG/KG/MIN Dextrose/Lactated Ringer's (Dextrose 5%-Lactated Ringers) 1,000 mls @ 100 mls/ hr IV ASDIRECTED [facility] Last Admin: 07/10/17 07:00 Dose: 100 mls/hr Cefoxitin Sodium 2 gm/ Sodium (Chloride) 50 mls @ 100 mls/hr IV ONETIME ONE Stop: 07/10/17 07:59 Last Admin: 07/10/17 07:25 Dose: 100 mls/hr Dextrose/Lactated Ringer's (Dextrose 5%-Lactated Ringers) 1,000 mls @ 175 mls/ hr IV ASDIRECTED [facility] Last Admin: 07/11/17 06:25 Dose: 175 mls/hr Multivitamins/Minerals 10 ml/Thiamine HCl 200 mg/ Chromium/Copper/Manganese/ Seleni/Zn 1 ml/ Dextrose/Lactated Ringer's 1,013 mls @ 175 mls/hr IV DAILY@ 1600 [facility] Last Admin: 07/10/17 17:50 Dose: 175 mls/hr Cefoxitin Sodium 2 gm/ Sodium (Chloride) 50 mls @ 100 mls/hr IV Q6H [facility] Stop: 07/11/17 07:59 Last Admin: 07/11/17 08:20 Dose: 100 mls/hr Multivitamins/Minerals 10 ml/Thiamine HCl 200 mg/ Chromium/Copper/Manganese/ Seleni/Zn 1 ml/ Lactated Ringer's 1,013 mls @ 100 mls/hr IV DAILY@1600 [facility] Last Admin: 07/11/17 17:11 Dose: 100 mls/hr Propofol (Diprivan 100 Ml) Confirm Administered Dose 100 mls @ as directed .ROUTE .STK-MED ONE Stop: 07/12/17 02:49 Last Admin: 07/12/17 05:23 Dose: 100 mg Norepinephrine Bitartrate 4 mg (/ Dextrose/Water) 250 mls @ 7.5 mls/hr IV TITRATE ROB; 2 MCG/MIN PRN Reason: Protocol Last Admin: 07/13/17 05:29 Dose: 20 mcg/min, 75 mls/hr Clindamycin Phosphate 600 mg/ (Sodium Chloride) 54 mls @ 100 mls/hr IV Q8H ROB Last Admin: 07/13/17 04:02 Dose: 100 mls/hr Dextrose/Water (Dextrose 5% In Water) Confirm Administered Dose 250 mls @ as directed .ROUTE .STK-MED ONE Stop: 07/12/17 03:50 Last Admin: 07/12/17 04:04 Dose: Not Given Dextrose/Water (Dextrose 5% In Water) Confirm Administered Dose 250 mls @ as directed .ROUTE .STK-MED ONE Stop: 07/12/17 04:30 Last Admin: 07/12/17 05:28 Dose: 250 ml Sodium Chloride (Normal Saline) 1,000 mls @ 999 mls/hr IV .BOLUS ONE Stop: 07/12/17 04:51 Last Admin: 07/12/17 03:51 Dose: 999 mls/hr Sodium Chloride (Normal Saline) 1,000 mls @ 500 mls/hr IV ASDIRECTED ROB Lactated Ringer's (Ringers, Lactated) 500 mls @ 500 mls/hr IV ONETIME ONE Stop: 07/12/17 16:50 Last Admin: 07/12/17 15:35 Dose: 500 mls/hr Lactated Ringer's (Ringers, Lactated) 1,000 mls @ 500 mls/hr IV ASDIRECTED ROB Stop: 07/13/17 04:15 Norepinephrine Bitartrate 8 mg (/ Dextrose/Water) 500 mls @ 7.5 mls/hr IV TITRATE ROB; 2 MCG/MIN PRN Reason: Protocol Influenza Virus Vaccine (Fluzone Quad ) 60 mcg IM .ONCE ONE Stop: 07/10/17 06:31 Last Admin: 07/10/17 12:24 Dose: Not Given Influenza Virus Vaccine (Fluzone Quad 9591-1465) 60 mcg IM .ONCE ONE Stop: 07/12/17 11:31 Last Admin: 07/12/17 16:05 Dose: Not Given Insulin Aspart (Novolog) 5 unit SUBCUT ONETIME ONE Stop: 07/10/17 10:16 Last Admin: 07/10/17 10:12 Dose: 5 units Insulin Aspart (Novolog) 0 unit SUBCUT Q6H PRN; Protocol PRN Reason: PER CORRECTIONAL DOSING Last Admin: 07/12/17 16:03 Dose: 7 units Insulin Aspart (Novolog) 0 unit SUBCUT ONETIME STA Stop: 07/10/17 22:23 Last Admin: 07/10/17 22:43 Dose: 20 units Insulin Aspart (Novolog) 0 unit SUBCUT Q6H [facility] PRN Reason: Protocol Last Admin: 07/13/17 03:41 Dose: 15 units Insulin Aspart (Novolog) 14 unit SUBCUT ONETIME ONE Stop: 07/12/17 23:41 Last Admin: 07/12/17 23:51 Dose: 14 units Insulin Aspart (Novolog) 16 unit SUBCUT ONETIME ONE Stop: 07/13/17 06:35 Last Admin: 07/13/17 06:45 Dose: 16 units Insulin Detemir (Levemir) 35 unit SUBCUT BEDTIME [facility] Last Admin: 07/11/17 06:22 Dose: Not Given Insulin Detemir (Levemir) 0 unit SUBCUT ONETIME ONE Stop: 07/10/17 22:28 Last Admin: 07/10/17 22:43 Dose: 45 units Iohexol (Omnipaque-300) 50 ml PO .ASDIRECTED STA Stop: 07/11/17 03:45 Last Admin: 07/11/17 03:56 Dose: 50 ml Isosorbide Mononitrate (Imdur) 30 mg PO DAILY [facility] Last Admin: 07/11/17 08:24 Dose: 30 mg Ketamine HCl (Ketalar) 30 mg IV ASDIRECTED [facility] Levothyroxine Sodium (Levothyroxine) 75 mcg PO DAILY@0730 [facility] Last Admin: 07/12/17 08:06 Dose: Not Given Lidocaine HCl (Xylocaine 2%) 145 mg IVPUSH ONETIME ONE Stop: 07/10/17 07:31 Last Admin: 07/10/17 12:23 Dose: Not Given Lisinopril (Prinivil) 40 mg PO DAILY [facility] Last Admin: 07/11/17 08:27 Dose: 40 mg Methylprednisolone Sodium Succinate (Solu-Medrol) 125 mg IVPUSH ONETIME ONE Stop: 07/12/17 03:59 Last Admin: 07/12/17 04:15 Dose: 125 mg Metoprolol Tartrate (Lopressor) 100 mg PO BID [facility] Last Admin: 07/11/17 21:07 Dose: 100 mg Metoprolol Tartrate (Lopressor) 5 mg IV Q6H [facility] Last Admin: 07/12/17 09:14 Dose: 5 mg Miscellaneous Information (Remove Patch) 1 ea TRDERM ONETIME ONE Stop: 07/12/17 10:01 Last Admin: 07/12/17 09:25 Dose: Not Given Neostigmine Methylsulfate (Neostigmine) Confirm Administered Dose 5 mg .ROUTE .STK-MED ONE Stop: 07/10/17 07:05 Nitroglycerin (Nitro-Bid 2%) Confirm Administered Dose 1 gm .ROUTE .STK-MED ONE Stop: 07/12/17 10:00 Last Admin: 07/12/17 10:15 Dose: 1 gm Nitroglycerin (Nitro-Bid 2%) 1 gm TOP ONETIME ONE Stop: 07/12/17 10:00 Last Admin: 07/13/17 09:03 Dose: 1 gm Ondansetron HCl (Zofran) Confirm Administered Dose 4 mg .ROUTE .STK-MED ONE Stop: 07/10/17 07:05 Pantoprazole Sodium (Protonix Iv) 40 mg IVPUSH Q24H [facility] Last Admin: 07/11/17 13:55 Dose: 40 mg Phenylephrine HCl (Ran-Synephrine) Confirm Administered Dose 10 mg .ROUTE .STK- MED ONE Stop: 07/10/17 08:52 Propofol (Diprivan 20 Ml) Confirm Administered Dose 200 mg .ROUTE .STK-MED ONE Stop: 07/10/17 07:05 Propofol (Diprivan 20 Ml) 100 mg IVPUSH ONETIME ONE Stop: 07/12/17 02:31 Last Admin: 07/12/17 04:24 Dose: Not Given Propofol (Diprivan 20 Ml) 100 mg IVPUSH ONETIME ONE Stop: 07/12/17 02:41 Last Admin: 07/12/17 04:25 Dose: Not Given Rocuronium [place]leer (Zemuron) Confirm Administered Dose 50 mg .ROUTE .STK-MED ONE Stop: 07/10/17 07:05 Rocuronium [place]leer (Zemuron) Confirm Administered Dose 50 mg .ROUTE .STK-MED ONE Stop: 07/10/17 08:57 Rocuronium [place]leer (Zemuron) 15 mg IV ONETIME ONE Stop: 07/12/17 02:31 Last Admin: 07/12/17 04:24 Dose: Not Given Scopolamine (Transderm-Scop) 1.5 mg TRDERM ONETIME ONE Stop: 07/10/17 06:01 Last Admin: 07/10/17 06:22 Dose: 1.5 mg Sodium Polystyrene Sulfonate (Kayexalate) 45 gm RECTAL NOW ONE Stop: 07/12/17 23:41 Last Admin: 07/13/17 00:15 Dose: 45 gm Sodium Polystyrene Sulfonate (Kayexalate) 30 gm RECTAL NOW ONE Stop: 07/13/17 06:34 Last Admin: 07/13/17 06:57 Dose: 30 gm Succinylcholine Chloride (Quelicin) Confirm Administered Dose 200 mg .ROUTE .STK -MED ONE Stop: 07/10/17 07:05 Vasopressin (Vasopressin) Confirm Administered Dose 100 units .ROUTE .STK-MED ONE Stop: 07/12/17 04:29 Last Admin: 07/12/17 04:48 Dose: 100 units - Exam Quality Assessment: Supplemental Oxygen (Ventilator), Urine Catheter, DVT Prophylaxis General: Sedated Lungs: Decreased Breath Sounds, Rales. No: Rhonchi, Wheezing Cardiovascular: Regular Rate, Regular Rhythm, No Murmurs GI/Abdominal Exam: Soft, Non-Tender, No Organomegaly, No Distention Extremities: Non-Tender, Pedal Edema Skin: Warm, Dry Consult PN Assessment/Plan Procedures: Procedures BLOOD TYPING SEROLOGIC ABO (02/04/16) BLOOD TYPING SEROLOGIC RH(D) (02/04/16) COMPLETE CBC W/AUTO DIFF WBC (12/09/15) COMPREHEN METABOLIC PANEL (12/09/15) EMERGENCY DEPT VISIT (12/09/15) POLYSOM 6/> YRS 4/> BEBE (05/23/16) POLYSOM 6/>YRS CPAP 4/> PARM (11/29/16) RBC ANTIBODY SCREEN (02/04/16) ROUTINE VENIPUNCTURE (12/09/15) URINALYSIS AUTO W/SCOPE (12/09/15) Problem List Initiated/Reviewed/Updated: Yes My Orders Last 24 Hours: My Active Orders 07/12/17 10:07 Blood Culture x2 Reflex Set [OM.PC] Urgent 07/12/17 10:18 CULTURE BLOOD [BC] Stat 07/12/17 10:20 CULTURE BLOOD [BC] Stat 07/12/17 17:00 DOBUTamine/Dextrose 5%-Water [DOBUTamine in D5W 250 MG/250 ML] 250 mg in 250 ml IV TITRATE 07/12/17 20:32 Communication Order [RC] ASDIRECTED 07/13/17 02:35 Communication Order [RC] ASDIRECTED 07/13/17 03:21 Urinary Catheter Assessment [RC] ASDIRECTED 07/13/17 03:30 Insert Fernandes Catheter [Insert Urinary Catheter] [OM.PC] Q24H 07/13/17 04:00 Restraint Monitoring Non-VIOL/Non-SD [OM.PC] Daily 07/13/17 08:00 Echo Comp wo Cont [US] Urgent 07/13/17 09:06 Norepinephrine [Levophed] 16 mg Dextrose 5% in Water 484 ml IV TITRATE 07/13/17 09:20 Communication Order [RC] ASDIRECTED Diabetes Education [RC] Click to Edit Notify Provider [RC] PRN 07/13/17 09:30 Insulin Regular, Human [NovoLIN R] 100 unit Sodium Chloride 0.9% [Normal Saline] 100 ml IV TITRATE 07/14/17 05:00 CXR [Chest 1V Frontal] [CR] DAILY 07/15/17 05:00 CXR [Chest 1V Frontal] [CR] DAILY 07/16/17 05:00 CXR [Chest 1V Frontal] [CR] DAILY 07/17/17 05:00 CXR [Chest 1V Frontal] [CR] DAILY 07/18/17 05:00 CXR [Chest 1V Frontal] [CR] DAILY Plan: ASSESSMENT AND RECOMMENDATIONS ACUTE HYPOXIC AND HYPERCAPNIC RESPIRATORY FAILURE-bilateral pulmonary infiltrates consistent with pulmonary edema versus infection. I suspect that this is more consistent with infection and component of ARDS. She does have a known history of coronary artery disease. Most recent assessment in February 2017 showed moderate coronary artery disease and medical management was recommended that time by cardiology. Most recent echocardiogram showed normal left ventricular function, follow-up echocardiogram pending today. -IV meropenem and vancomycin, pending culture results -Echocardiogram today -Intubation and mechanical ventilation -Daily spontaneous breathing trials after she is stabilized -Minimize IV fluids -Blood and sputum cultures pending -DVT prophylaxis -IV Protonix for stress ulcer prophylaxis SEPTIC SHOCK- continues to experience severe hemodynamic compromise, currently on maximal doses of vasopressin and norepinephrine. -IV norepinephrine to maintain mean arterial pressure greater than 65 -IV vasopressin -Minimize fluids secondary to underlying ARDS -Blood and sputum cultures pending -IV vancomycin and meropenem as above STATUS POST GASTRIC BYPASS SURGERY -Postoperative care per Dr. Sunshine CHRONIC KIDNEY DISEASE STAGE III-acute on chronic kidney injury secondary to hypotension and hemodynamic compromise -Closely monitor urine output and renal function TYPE 2 DIABETES MELLITUS-glucose levels significantly elevated over the past 24 hours -Level III continuous infusion of insulin-dependent
[2017-07-13] MEDS: Heparin Sodium 5,000 UNITS in Sodium Chloride 0.9% 500 ML IV SCH ×2 (17:11→17:23)
[2017-07-14] MEDS: Magnesium Sulfate/Water 2 GM in Premix Bag 1 BAG IV SCH (03:25)
[2017-07-14] MEDS: Heparin Sodium 5,000 Units/ML Vial SUBCUT SCH ×2 (05:31→17:38)
[2017-07-14] MEDS: Albuterol/Ipratropium 3.0-0.5 MG/3 ML Neb Soln INH SCH ×4 (07:54→20:51)
[2017-07-14] MEDS ORDERED: Vasopressin 40 UNITS in Dextrose 5% in Water 98 ML IV SCH ×2 (08:15)
[2017-07-14] MEDS: Linezolid 600 MG in Premix Bag 1 BAG IV SCH ×2 (08:46→21:00)
--- NOTE | 2017-07-14 09:11 | CR ---
CHEST: AP portable CLINICAL HISTORY:Respiratory failure COMPARISON:07/13/2017 FINDINGS: Study is limited due to patient size. Endotracheal tube remains in the mid to distal trache a. Left subclavian catheter is in the brachiocephalic superior vena caval junction. There are persist ent diffuse bilateral pulmonary infiltrates. These are similar on the right when compared prior study . There has been an increase in the left lung infiltrate . IMPRESSION: Persistent diffuse bilateral pulmonary infiltrates worsening on the left ET tube and central venous line appear in good position
--- NOTE | 2017-07-14 10:19 | PCM.CONSN ---
- General Info Date of Service: 07/14/17 Subjective Update: Ms. Gaston shown improvement over the past 24 hours, hemodynamically more stable. Norepinephrine has been tapered down to 6 and vasopressin to 0.2, blood pressure significantly improved since yesterday afternoon. She has tolerated a modest decrease in her FiO2 but still above desired range at 90%. Creatinine has continued to climb, but she is making small amounts of urine. Comfortable at this time with fairly minimal sedation. - Patient Data Vitals - Most Recent: Last Vital Signs Temp 99 F 07/14/17 08:00 Pulse 91 07/14/17 07:58 Resp 26 H 07/14/17 09:50 BP 117/45 L 07/14/17 09:50 Pulse Ox 95 07/14/17 09:50 Weight - Most Recent: 383 lb I&O - Last 24 Hours: Intake & Output 07/13/17 07/14/17 07/14/17 22:59 06:59 14:59 Intake Total 1502 1399 Output Total 215 134 75 Balance 1287 1265 -75 Lab Results Last 24 Hours: Laboratory Results - last 24 hr 07/13/17 07/13/17 07/13/17 Range/Units 17:00 17:00 17:00 WBC (4.5-11.0) K/uL RBC (3.30-5.50) M/uL Hgb (12.0-15.0) g/dL Hct (36.0-48.0) % MCV (80-98) fL MCH (27-31) pg MCHC (32-36) % Plt Count (150-400) K/uL Puncture Site Line ABG pH 7.301 L (7.350-7.450) ABG pCO2 37.6 (35.0-42.0) mmHg ABG pO2 114.0 H (75.0-100.0) mmHg ABG HCO3 17.9 L (22.0-26.0) mmol/L ABG Total CO2 17.0 L (21.0-25.0) mmol/L ABG O2 Saturation 97.8 (95.0-98.0) % ABG O2 Content 13.7 L (15.0-23.0) %vol ABG Base Excess -7.3 mm/L ABG Hemoglobin 10.1 L (12.0-16.0) g/dL ABG Oxyhemoglobin 95.4 % ABG Carboxyhemoglobin 1.6 (0.0-1.6) % ABG Methemoglobin 0.9 % Gustabo Test TNP O2 Delivery Device Ventilator Oxygen Flow Rate L Sodium 132 L (140-148) mmol/L Potassium 5.1 (3.6-5.2) mmol/L Chloride 100 (100-108) mmol/L Carbon Dioxide 20 L (21-32) mmol/L Anion Gap 17.1 H (5.0-14.0) mmol/L BUN 47 H (7-18) mg/dL Creatinine 3.8 H* (0.6-1.0) mg/dL Est Cr Clr Drug Dosing 12.92 mL/min Estimated GFR (MDRD) 12 L (>60) Glucose 225 H (74-106) mg/dL Lactic Acid 2.5 H (0.4-2.0) mmol/L Calcium 7.4 L (8.5-10.1) mg/dL Phosphorus 5.0 H (2.5-4.9) mg/dL NT-Pro-B Natriuret Pep 97670 H (5-125) pg/mL 07/14/17 07/14/17 07/14/17 Range/Units 04:00 04:39 04:39 WBC 10.6 (4.5-11.0) K/uL RBC 3.20 L (3.30-5.50) M/uL Hgb 9.3 L (12.0-15.0) g/dL Hct 27.6 L (36.0-48.0) % MCV 86 (80-98) fL MCH 29 (27-31) pg MCHC 34 (32-36) % Plt Count 118 L (150-400) K/uL Puncture Site A-line ABG pH 7.323 L (7.350-7.450) ABG pCO2 37.4 (35.0-42.0) mmHg ABG pO2 96.5 (75.0-100.0) mmHg ABG HCO3 18.9 L (22.0-26.0) mmol/L ABG Total CO2 18.0 L (21.0-25.0) mmol/L ABG O2 Saturation 96.6 (95.0-98.0) % ABG O2 Content 12.3 L (15.0-23.0) %vol ABG Base Excess -6.1 mm/L ABG Hemoglobin 9.2 L (12.0-16.0) g/dL ABG Oxyhemoglobin 93.7 % ABG Carboxyhemoglobin 2.1 H (0.0-1.6) % ABG Methemoglobin 0.9 % Gustabo Test A-line O2 Delivery Device Ventilator Oxygen Flow Rate L Sodium 133 L (140-148) mmol/L Potassium 5.0 (3.6-5.2) mmol/L Chloride 100 (100-108) mmol/L Carbon Dioxide 20 L (21-32) mmol/L Anion Gap 18.0 H (5.0-14.0) mmol/L BUN 54 H (7-18) mg/dL Creatinine 4.5 H* (0.6-1.0) mg/dL Est Cr Clr Drug Dosing 10.91 mL/min Estimated GFR (MDRD) 10 L (>60) Glucose 145 H (74-106) mg/dL Lactic Acid (0.4-2.0) mmol/L Calcium 7.4 L (8.5-10.1) mg/dL Phosphorus 5.1 H (2.5-4.9) mg/dL NT-Pro-B Natriuret Pep 70714 H (5-125) pg/mL 07/14/17 Range/Units 04:39 WBC (4.5-11.0) K/uL RBC (3.30-5.50) M/uL Hgb (12.0-15.0) g/dL Hct (36.0-48.0) % MCV (80-98) fL MCH (27-31) pg MCHC (32-36) % Plt Count (150-400) K/uL Puncture Site ABG pH (7.350-7.450) ABG pCO2 (35.0-42.0) mmHg ABG pO2 (75.0-100.0) mmHg ABG HCO3 (22.0-26.0) mmol/L ABG Total CO2 (21.0-25.0) mmol/L ABG O2 Saturation (95.0-98.0) % ABG O2 Content (15.0-23.0) %vol ABG Base Excess mm/L ABG Hemoglobin (12.0-16.0) g/dL ABG Oxyhemoglobin % ABG Carboxyhemoglobin (0.0-1.6) % ABG Methemoglobin % Gustabo Test O2 Delivery Device Oxygen Flow Rate L Sodium (140-148) mmol/L Potassium (3.6-5.2) mmol/L Chloride (100-108) mmol/L Carbon Dioxide (21-32) mmol/L Anion Gap (5.0-14.0) mmol/L BUN (7-18) mg/dL Creatinine (0.6-1.0) mg/dL Est Cr Clr Drug Dosing mL/min Estimated GFR (MDRD) (>60) Glucose (74-106) mg/dL Lactic Acid 1.9 (0.4-2.0) mmol/L Calcium (8.5-10.1) mg/dL Phosphorus (2.5-4.9) mg/dL NT-Pro-B Natriuret Pep (5-125) pg/mL Miguel Results Last 24 Hours: Microbiology 07/12/17 09:09 Gram Stain - Final Endotracheal Respiratory Culture - Final NORMAL RESPIRATORY BRODIE 2 DAYS 07/12/17 10:20 Aerobic Blood Culture - Preliminary Blood - Central Line NO GROWTH AFTER 1 DAY Anaerobic Blood Culture - Preliminary NO GROWTH AFTER 1 DAY 07/12/17 10:18 Aerobic Blood Culture - Preliminary Blood - A-Line NO GROWTH AFTER 1 DAY Anaerobic Blood Culture - Preliminary NO GROWTH AFTER 1 DAY Med Orders - Current: Current Medications Albuterol/Ipratropium (Duoneb 3.0-0.5 Mg/3 Ml) 3 ml INH QIDRT [facility] Last Admin: 07/14/17 07:54 Dose: 3 ml Albuterol/Ipratropium (Duoneb 3.0-0.5 Mg/3 Ml) 3 ml INH ASDIRECTED PRN PRN Reason: BREATHING Last Admin: 07/13/17 00:30 Dose: 3 ml Dextrose/Water (Dextrose 50% In Water) 50 ml IVPUSH ONETIME PRN PRN Reason: ACCUCHECK LESS THAN 70 Diphenhydramine HCl (Benadryl) 25 - 50 mg IVPUSH Q4H PRN PRN Reason: ITCHING Glucagon (Glucagen) 1 mg IM ONETIME PRN PRN Reason: ACCUCHECK LESS THAN 70 Heparin Sodium (Porcine) (Heparin Sodium) 5,000 units SUBCUT Q12H [facility] Last Admin: 07/14/17 05:31 Dose: 5,000 units Heparin Sodium (Porcine) (Heparin Lock Flush 100 Units/Ml) 500 units IVPUSH ASDIRECTED PRN 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 Hydromorphone HCl (Dilaudid [employer] 15 Mg In Ns 30 Ml) 0 mg IV ASDIRECTED PRN; Protocol PRN Reason: 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 CONTROL Last Admin: 07/12/17 10:01 Dose: 15 mg Hydroxyzine HCl (Vistaril) 75 - 100 mg IM Q4H PRN PRN Reason: pain Lactated Ringer's (Ringers, Lactated) 1,000 mls @ 100 mls/hr IV ASDIRECTED ROB Last Admin: 07/11/17 08:20 Dose: 100 mls/hr Propofol (Diprivan 100 Ml) 100 mls @ 4.776 mls/hr IV TITRATE ROB; 5 MCG/KG/MIN PRN Reason: Protocol Last Admin: 07/14/17 05:25 Dose: 15 mcg/kg/min, 14.329 mls/hr Heparin Sodium (Porcine) 5,000 (units/ Sodium Chloride) 501 mls @ 5 mls/hr IV ASDIRECTED ROB Last Admin: 07/13/17 17:11 Dose: 5 mls/hr Heparin Sodium (Porcine) 5,000 (units/ Sodium Chloride) 501 mls @ 1 mls/hr IV ASDIRECTED ROB Last Admin: 07/13/17 17:23 Dose: 1 mls/hr Sodium Chloride (Normal Saline) 1,000 mls @ 250 mls/hr IV ASDIRECTED ROB Last Infusion: 07/12/17 08:24 Dose: 0 mls/hr Linezolid 600 mg/ Premix 300 mls @ 300 mls/hr IV Q12H ROB Last Admin: 07/14/17 08:46 Dose: 300 mls/hr Norepinephrine Bitartrate 16 (mg/ Dextrose/Water) 500 mls @ 3.75 mls/hr IV TITRATE ROB; 2 MCG/MIN PRN Reason: Protocol Last Titration: 07/13/17 18:38 Dose: 6 mcg/min, 11.25 mls/hr Insulin Human Regular 100 unit (/ Sodium Chloride) 100 mls @ 0.5 mls/hr IV TITRATE ROB; 0.5 UNITS/HR PRN Reason: Protocol Last Titration: 07/14/17 09:57 Dose: 4 units/hr, 4 mls/hr Meropenem 1 gm/ Sodium (Chloride) 50 mls @ 100 mls/hr IV Q8H [facility] Last Admin: 07/14/17 03:13 Dose: 100 mls/hr Vasopressin 40 units/ Dextrose (/Water) 100 mls @ 4.5 mls/hr IV TITRATE ROB; 0.03 UNITS/MIN PRN Reason: Protocol Ketoconazole (Nizoral 2% Crm) 0 gm TOP BID [facility] Last Admin: 07/13/17 20:44 Dose: 1 applic Labetalol HCl (Normodyne) 5 - 15 mg IVPUSH Q1H PRN PRN Reason: SBP over 160 OR DBP over 95 Metoclopramide HCl (Reglan) 10 mg IVPUSH Q6H PRN PRN Reason: NAUSEA NOT CONTROL BY ZOFRAN Naloxone HCl (Narcan) 0.1 mg IV ASDIRECTED PRN PRN Reason: decreased respiratory rate Check Scopolamine (Patch Daily) 1 each TOP DAILY [facility] Last Admin: 07/13/17 08:33 Dose: Not Given Ondansetron HCl (Zofran) 4 mg IVPUSH Q4H PRN PRN Reason: Nausea/Vomiting Last Admin: 07/11/17 09:06 Dose: 4 mg Discontinued Medications Acetaminophen (Tylenol Extra Strength) 1,000 mg PO ONETIME ONE Stop: 07/10/17 05:52 Last Admin: 07/10/17 06:22 Dose: 1,000 mg Acetaminophen (Tylenol) 650 mg PO Q6H [facility] Last Admin: 07/12/17 08:06 Dose: Not Given Albuterol/Ipratropium (Duoneb 3.0-0.5 Mg/3 Ml) 3 ml NEB ONETIME ONE Stop: 07/10/17 06:24 Last Admin: 07/10/17 07:14 Dose: 3 ml Aspirin (Ecotrin) 325 mg PO ONETIME ONE Stop: 07/10/17 07:16 Last Admin: 07/10/17 07:25 Dose: 325 mg Aspirin (Aspirin) 324 mg PO DAILY [facility] Last Admin: 07/11/17 08:27 Dose: 324 mg Baclofen (Lioresal) 10 mg PO TID [facility] Last Admin: 07/11/17 21:07 Dose: 10 mg Bumetanide (Bumex) 2 mg IVPUSH ONETIME ONE Stop: 07/12/17 10:08 Last Admin: 07/12/17 10:26 Dose: 2 mg Bupropion HCl (Wellbutrin Sr) 150 mg PO BID [facility] Last Admin: 07/11/17 21:08 Dose: 150 mg Cefoxitin Sodium (Mefoxin) Confirm Administered Dose 2 gm .ROUTE .STK-MED ONE Stop: 07/10/17 06:43 Last Admin: 07/10/17 08:17 Dose: 2 gm Celecoxib (Celebrex) 200 mg PO ONETIME ONE Stop: 07/10/17 05:52 Last Admin: 07/10/17 06:21 Dose: 200 mg Celecoxib (Celebrex) 200 mg PO DAILY@0800 [facility] Last Admin: 07/12/17 08:06 Dose: Not Given Ropivacaine 60 ml/Dexamethasone 8 mg/Epinephrine HCl 0.4 mg/ Sodium Chloride 17.6 ml 0 ml NERVRT ASDIRECTED [facility] Last Admin: 07/10/17 08:06 Dose: 80 syringe Cyanocobalamin (Vitamin B12) 1,000 mcg IM ONETIME ONE Stop: 07/12/17 09:01 Last Admin: 07/12/17 09:20 Dose: 1,000 mcg Dexamethasone (Dexamethasone) Confirm Administered Dose 4 mg .ROUTE .STK-MED ONE Stop: 07/10/17 07:05 Ephedrine Sulfate (Ephedrine Sulfate) Confirm Administered Dose 50 mg .ROUTE .STK-MED ONE Stop: 07/10/17 07:53 Fentanyl (Sublimaze) Confirm Administered Dose 250 mcg .ROUTE .STK-MED ONE Stop: 07/10/17 07:05 Fluoxetine HCl (Prozac) 60 mg PO DAILY [facility] Last Admin: 07/11/17 08:27 Dose: 60 mg Furosemide (Lasix) 40 mg IVPUSH ONETIME STA Stop: 07/12/17 01:54 Last Admin: 07/12/17 02:06 Dose: 40 mg Furosemide (Lasix) Confirm Administered Dose 40 mg .ROUTE .STK-MED ONE Stop: 07/12/17 01:58 Last Admin: 07/12/17 04:02 Dose: 40 mg Gabapentin (Neurontin) 300 mg PO ONETIME ONE Stop: 07/10/17 05:52 Last Admin: 07/10/17 06:21 Dose: 300 mg Gabapentin (Neurontin) 300 mg PO TID [facility] Last Admin: 07/11/17 08:26 Dose: 300 mg Glycopyrrolate (Robinul) Confirm Administered Dose 1 mg .ROUTE .STK-MED ONE Stop: 07/10/17 07:05 Heparin Sodium (Porcine) (Heparin Sodium) Confirm Administered Dose 5,000 units .ROUTE .STK-MED ONE Stop: 07/12/17 02:38 Last Admin: 07/12/17 04:03 Dose: 5,000 units Hydrochlorothiazide (Hydrochlorothiazide) 25 mg PO DAILY [facility] Last Admin: 07/11/17 08:24 Dose: 25 mg Hydroxyzine HCl (Vistaril) 100 mg IM ONETIME ONE Stop: 07/10/17 10:40 Last Admin: 07/10/17 10:42 Dose: 100 mg Lidocaine HCl/Dextrose (Lidocaine 2 Gm/D5w 500 Ml) 2 gm in 500 mls @ 30 mls/hr IV .[id number] [facility] PRN Reason: 2 MG/MIN Stop: 07/11/17 10:00 Last Admin: 07/10/17 12:21 Dose: 2 mg/min, 30 mls/hr Ketamine HCl 100 mg/ Sodium (Chloride) 100 mls @ 16.5 mls/hr IV ASDIRECTED [facility] PRN Reason: 5 MCG/KG/MIN Dextrose/Lactated Ringer's (Dextrose 5%-Lactated Ringers) 1,000 mls @ 100 mls/ hr [facility] Last Admin: 07/10/17 07:00 Dose: 100 mls/hr Cefoxitin Sodium 2 gm/ Sodium (Chloride) 50 mls @ 100 mls/hr IV ONETIME ONE Stop: 07/10/17 07:59 Last Admin: 07/10/17 07:25 Dose: 100 mls/hr Dextrose/Lactated Ringer's (Dextrose 5%-Lactated Ringers) 1,000 mls @ 175 mls/ hr [facility] Last Admin: 07/11/17 06:25 Dose: 175 mls/hr Multivitamins/Minerals 10 ml/Thiamine HCl 200 mg/ Chromium/Copper/Manganese/ Seleni/Zn 1 ml/ Dextrose/Lactated Ringer's 1,013 mls @ 175 mls/hr IV DAILY@ 1600 [facility] Last Admin: 07/10/17 17:50 Dose: 175 mls/hr Cefoxitin Sodium 2 gm/ Sodium (Chloride) 50 mls @ 100 mls/hr IV Q6H [facility] Stop: 07/11/17 07:59 Last Admin: 07/11/17 08:20 Dose: 100 mls/hr Magnesium Sulfate 2 gm/ Premix 50 mls @ 25 mls/hr IV Q6H [facility] Stop: 07/14/17 05:59 Last Admin: 07/14/17 03:25 Dose: 25 mls/hr Multivitamins/Minerals 10 ml/Thiamine HCl 200 mg/ Chromium/Copper/Manganese/ Seleni/Zn 1 ml/ Lactated Ringer's 1,013 mls @ 100 mls/hr IV DAILY@1600 ROB Last Admin: 07/11/17 17:11 Dose: 100 mls/hr Propofol (Diprivan 100 Ml) Confirm Administered Dose 100 mls @ as directed .ROUTE .STK-MED ONE Stop: 07/12/17 02:49 Last Admin: 07/12/17 05:23 Dose: 100 mg Norepinephrine Bitartrate 4 mg (/ Dextrose/Water) 250 mls @ 7.5 mls/hr IV TITRATE ROB; 2 MCG/MIN PRN Reason: Protocol Last Admin: 07/13/17 05:29 Dose: 20 mcg/min, 75 mls/hr Clindamycin Phosphate 600 mg/ (Sodium Chloride) 54 mls @ 100 mls/hr IV Q8H [facility] Last Admin: 07/13/17 04:02 Dose: 100 mls/hr Meropenem 1 gm/ Sodium (Chloride) 100 mls @ 200 mls/hr IV Q8H [facility] Last Admin: 07/13/17 04:31 Dose: 200 mls/hr Dextrose/Water (Dextrose 5% In Water) Confirm Administered Dose 250 mls @ as directed .ROUTE .STK-MED ONE Stop: 07/12/17 03:50 Last Admin: 07/12/17 04:04 Dose: Not Given Vasopressin 100 units/ (Dextrose/Water) 255 mls @ 4.59 mls/hr IV TITRATE ROB; 0.03 UNITS/MIN PRN Reason: Protocol Last Titration: 07/14/17 03:01 Dose: 0.02 units/min, 3.06 mls/hr Dextrose/Water (Dextrose 5% In Water) Confirm Administered Dose 250 mls @ as directed .ROUTE .STK-MED ONE Stop: 07/12/17 04:30 Last Admin: 07/12/17 05:28 Dose: 250 ml Sodium Chloride (Normal Saline) 1,000 mls @ 999 mls/hr IV .BOLUS ONE Stop: 07/12/17 04:51 Last Admin: 07/12/17 03:51 Dose: 999 mls/hr Sodium Chloride (Normal Saline) 1,000 mls @ 500 mls/hr IV ASDIRECTED ROB Lactated Ringer's (Ringers, Lactated) 500 mls @ 500 mls/hr IV ONETIME ONE Stop: 07/12/17 16:50 Last Admin: 07/12/17 15:35 Dose: 500 mls/hr Dobutamine HCl/Dextrose (Dobutamine In D5w 250 Mg/250 Ml) 250 mg in 250 mls @ 19.105 mls/hr IV TITRATE ROB; 2 MCG/KG/MIN PRN Reason: Protocol Last Titration: 07/13/17 12:40 Dose: 0 mcg/kg/min, 0 mls/hr Lactated Ringer's (Ringers, Lactated) 1,000 mls @ 500 mls/hr IV ASDIRECTED ROB Stop: 07/13/17 04:15 Norepinephrine Bitartrate 8 mg (/ Dextrose/Water) 500 mls @ 7.5 mls/hr IV TITRATE ROB; 2 MCG/MIN PRN Reason: Protocol Influenza Virus Vaccine (Fluzone Quad ) 60 mcg IM .ONCE ONE Stop: 07/10/17 06:31 Last Admin: 07/10/17 12:24 Dose: Not Given Influenza Virus Vaccine (Fluzone Quad [id number]) 60 mcg IM .ONCE ONE Stop: 07/12/17 11:31 Last Admin: 07/12/17 16:05 Dose: Not Given Insulin Aspart (Novolog) 5 unit SUBCUT ONETIME ONE Stop: 07/10/17 10:16 Last Admin: 07/10/17 10:12 Dose: 5 units Insulin Aspart (Novolog) 0 unit SUBCUT Q6H PRN; Protocol PRN Reason: PER CORRECTIONAL DOSING Last Admin: 07/12/17 16:03 Dose: 7 units Insulin Aspart (Novolog) 0 unit SUBCUT ONETIME STA Stop: 07/10/17 22:23 Last Admin: 07/10/17 22:43 Dose: 20 units Insulin Aspart (Novolog) 0 unit SUBCUT Q6H [facility] PRN Reason: Protocol Last Admin: 07/13/17 03:41 Dose: 15 units Insulin Aspart (Novolog) 14 unit SUBCUT ONETIME ONE Stop: 07/12/17 23:41 Last Admin: 07/12/17 23:51 Dose: 14 units Insulin Aspart (Novolog) 16 unit SUBCUT ONETIME ONE Stop: 07/13/17 06:35 Last Admin: 07/13/17 06:45 Dose: 16 units Insulin Detemir (Levemir) 35 unit SUBCUT BEDTIME [facility] Last Admin: 07/11/17 06:22 Dose: Not Given Insulin Detemir (Levemir) 0 unit SUBCUT ONETIME ONE Stop: 07/10/17 22:28 Last Admin: 07/10/17 22:43 Dose: 45 units Iohexol (Omnipaque-300) 50 ml PO .ASDIRECTED STA Stop: 07/11/17 03:45 Last Admin: 07/11/17 03:56 Dose: 50 ml Isosorbide Mononitrate (Imdur) 30 mg PO DAILY [facility] Last Admin: 07/11/17 08:24 Dose: 30 mg Ketamine HCl (Ketalar) 30 mg IV ASDIRECTED [facility] Levothyroxine Sodium (Levothyroxine) 75 mcg PO DAILY@0730 [facility] Last Admin: 07/12/17 08:06 Dose: Not Given Lidocaine HCl (Xylocaine 2%) 145 mg IVPUSH ONETIME ONE Stop: 07/10/17 07:31 Last Admin: 07/10/17 12:23 Dose: Not Given Lisinopril (Prinivil) 40 mg PO DAILY [facility] Last Admin: 07/11/17 08:27 Dose: 40 mg Methylprednisolone Sodium Succinate (Solu-Medrol) 125 mg IVPUSH ONETIME ONE Stop: 07/12/17 03:59 Last Admin: 07/12/17 04:15 Dose: 125 mg Metoprolol Tartrate (Lopressor) 100 mg PO BID [facility] Last Admin: 07/11/17 21:07 Dose: 100 mg Metoprolol Tartrate (Lopressor) 5 mg IV Q6H [facility] Last Admin: 07/12/17 09:14 Dose: 5 mg Miscellaneous Information (Remove Patch) 1 ea TRDERM ONETIME ONE Stop: 07/12/17 10:01 Last Admin: 07/12/17 09:25 Dose: Not Given Neostigmine Methylsulfate (Neostigmine) Confirm Administered Dose 5 mg .ROUTE .STK-MED ONE Stop: 07/10/17 07:05 Nitroglycerin (Nitro-Bid 2%) Confirm Administered Dose 1 gm .ROUTE .STK-MED ONE Stop: 07/12/17 10:00 Last Admin: 07/12/17 10:15 Dose: 1 gm Nitroglycerin (Nitro-Bid 2%) 1 gm TOP ONETIME ONE Stop: 07/12/17 10:00 Last Admin: 07/13/17 09:03 Dose: 1 gm Ondansetron HCl (Zofran) Confirm Administered Dose 4 mg .ROUTE .STK-MED ONE Stop: 07/10/17 07:05 Pantoprazole Sodium (Protonix Iv) 40 mg IVPUSH Q24H ROB Last Admin: 07/11/17 13:55 Dose: 40 mg Phenylephrine HCl (Ran-Synephrine) Confirm Administered Dose 10 mg .ROUTE .STK- MED ONE Stop: 07/10/17 08:52 Propofol (Diprivan 20 Ml) Confirm Administered Dose 200 mg .ROUTE .STK-MED ONE Stop: 07/10/17 07:05 Propofol (Diprivan 20 Ml) 100 mg IVPUSH ONETIME ONE Stop: 07/12/17 02:31 Last Admin: 07/12/17 04:24 Dose: Not Given Propofol (Diprivan 20 Ml) 100 mg IVPUSH ONETIME ONE Stop: 07/12/17 02:41 Last Admin: 07/12/17 04:25 Dose: Not Given Rocuronium [place] (Zemuron) Confirm Administered Dose 50 mg .ROUTE .STK-MED ONE Stop: 07/10/17 07:05 Rocuronium [place] (Zemuron) Confirm Administered Dose 50 mg .ROUTE .STK-MED ONE Stop: 07/10/17 08:57 Rocuronium [place] (Zemuron) 15 mg IV ONETIME ONE Stop: 07/12/17 02:31 Last Admin: 07/12/17 04:24 Dose: Not Given Scopolamine (Transderm-Scop) 1.5 mg TRDERM ONETIME ONE Stop: 07/10/17 06:01 Last Admin: 07/10/17 06:22 Dose: 1.5 mg Sodium Polystyrene Sulfonate (Kayexalate) 45 gm RECTAL NOW ONE Stop: 07/12/17 23:41 Last Admin: 07/13/17 00:15 Dose: 45 gm Sodium Polystyrene Sulfonate (Kayexalate) 30 gm RECTAL NOW ONE Stop: 07/13/17 06:34 Last Admin: 07/13/17 06:57 Dose: 30 gm Succinylcholine Chloride (Quelicin) Confirm Administered Dose 200 mg .ROUTE .STK -MED ONE Stop: 07/10/17 07:05 Vasopressin (Vasopressin) Confirm Administered Dose 100 units .ROUTE .STK-MED ONE Stop: 07/12/17 04:29 Last Admin: 07/12/17 04:48 Dose: 100 units - Exam General: Sedated HEENT: Pupils Equal, Pupils Reactive Lungs: Decreased Breath Sounds, Rales. No: Rhonchi, Wheezing Cardiovascular: Regular Rate, Regular Rhythm, No Murmurs GI/Abdominal Exam: Soft, No Organomegaly, No Distention Extremities: Pedal Edema Skin: Warm, Dry Consult PN Assessment/Plan Procedures: Procedures BLOOD TYPING SEROLOGIC ABO (02/04/16) BLOOD TYPING SEROLOGIC RH(D) (02/04/16) COMPLETE CBC W/AUTO DIFF WBC (12/09/15) COMPREHEN METABOLIC PANEL (12/09/15) EMERGENCY DEPT VISIT (12/09/15) POLYSOM 6/> YRS 4/> BEBE (05/23/16) POLYSOM 6/>YRS CPAP 4/> PARM (11/29/16) RBC ANTIBODY SCREEN (02/04/16) ROUTINE VENIPUNCTURE (12/09/15) URINALYSIS AUTO W/SCOPE (12/09/15) Problem List Initiated/Reviewed/Updated: Yes My Orders Last 24 Hours: My Active Orders 07/13/17 09:20 Communication Order [RC] ASDIRECTED Diabetes Education [RC] Click to Edit Notify Provider [RC] PRN 07/13/17 09:30 Insulin Regular, Human [NovoLIN R] 100 unit Sodium Chloride 0.9% [Normal Saline] 99 ml IV TITRATE 07/13/17 12:00 Meropenem [Merrem] 1 gm Sodium Chloride 0.9% [Normal Saline] 50 ml IV Q8H 07/14/17 08:15 Vasopressin 40 units Dextrose 5% in Water 98 ml IV TITRATE 07/14/17 17:00 BASIC METABOLIC PANEL,BMP [CHEM] Stat BLOOD GAS ARTERIAL [BG] Stat CBC WITH AUTO DIFF [HEME] Stat 07/15/17 05:00 CXR [Chest 1V Frontal] [CR] DAILY BLOOD GAS ARTERIAL [BG] Timed CBC WITH AUTO DIFF [HEME] Timed COMPREHENSIVE METABOLIC PN,CMP [CHEM] Timed MAGNESIUM [CHEM] Timed PHOSPHORUS [CHEM] Timed 07/16/17 05:00 CXR [Chest 1V Frontal] [CR] DAILY 07/17/17 05:00 CXR [Chest 1V Frontal] [CR] DAILY 07/18/17 05:00 CXR [Chest 1V Frontal] [CR] DAILY Plan: ASSESSMENT AND RECOMMENDATIONS ACUTE HYPOXIC AND HYPERCAPNIC RESPIRATORY FAILURE-bilateral pulmonary infiltrates consistent with probable pneumonia and ARDS. Saturations have improved over the past 24 hours and we've been able to decrease FiO2 slightly. Echocardiogram showed mildly decreased left ventricular function, no significant valvular disease. -IV meropenem and Zyvox, pending culture results -Intubation and mechanical ventilation -Daily spontaneous breathing trials after she is stabilized -Minimize IV fluids -Blood and sputum cultures pending -DVT prophylaxis -IV Protonix for stress ulcer prophylaxis SEPTIC SHOCK- hemodynamically much more stable over the past 24 hours, requirement for IV pressors has significantly improved although she remains on moderate dose norepinephrine and moderate dose vasopressin. -IV norepinephrine to maintain mean arterial pressure greater than 65 -IV vasopressin -Minimize fluids secondary to underlying ARDS -Blood and sputum cultures pending -IV vancomycin and meropenem as above STATUS POST GASTRIC BYPASS SURGERY -Postoperative care per Dr. Sunshine CHRONIC KIDNEY DISEASE STAGE III-acute on chronic kidney injury secondary to hypotension and hemodynamic compromise. Renal function worsened over the past 24 hours with increasing creatinine to 4.5. Now that hemodynamics have improved expect improvement in renal function over the next day or 2. She does continue to make a small amount of urine approximately 15 mL per hour. -Closely monitor urine output and renal function TYPE 2 DIABETES MELLITUS-glucose levels improved with continuous infusion of insulin -Level III continuous infusion of insulin -Monitor regular glucose levels per protocol
[2017-07-14] MEDS: Ketoconazole 2% Crm 30 GM Tube TOP SCH ×2 (10:47→23:10)
[2017-07-14] MEDS: CHECK SCOPOLAMINE PATCH DAILY TOP SCH (10:47)
[2017-07-14] MEDS ORDERED: Pantoprazole 40 MG Vial IV SCH (11:30)
[2017-07-14] MEDS: Acetaminophen 650 MG Supp RECTAL PRN ×2 (16:30→22:21)
[2017-07-14] MEDS ORDERED: Sodium Chloride 0.9% 500 ML IV SCH (17:00)
[2017-07-14] MEDS ORDERED: Diltiazem 25 MG/5 ML SDV IVPUSH ONE (19:14)
[2017-07-14] MEDS: Diltiazem 100 MG in Sodium Chloride 0.9% 100 ML IV SCH (19:57)
[2017-07-14] MEDS ORDERED: Levofloxacin/Dextrose 5%-Water 750 MG in Premix Bag 1 BAG IV ONE (22:01)
[2017-07-15] MEDS: Heparin Sodium 5,000 Units/ML Vial SUBCUT SCH ×2 (06:20→17:21)
[2017-07-15] MEDS: Albuterol/Ipratropium 3.0-0.5 MG/3 ML Neb Soln INH SCH ×4 (06:58→20:44)
[2017-07-15] MEDS: CHECK SCOPOLAMINE PATCH DAILY TOP SCH (09:11)
[2017-07-15] MEDS: Linezolid 600 MG in Premix Bag 1 BAG IV SCH ×2 (09:15→20:46)
[2017-07-15] MEDS: Ketoconazole 2% Crm 30 GM Tube TOP SCH ×2 (09:16→21:44)
[2017-07-15] MEDS: Diltiazem 100 MG in Sodium Chloride 0.9% 100 ML IV SCH ×2 (10:00→19:33)
--- NOTE | 2017-07-15 10:31 | PCM.CONSN ---
- General Info Date of Service: 07/15/17 Subjective Update: Ms. Gaston has unfortunately taken another turn for the worse over the last 24 hours, requiring increased level of FiO2 to maintain even somewhat borderline saturations. Last night she developed atrial fibrillation with rapid ventricular response and has been started on IV Cardizem infusion. This has resulted in better control of her rate and the plan will be to go up further on the dose this morning. The pressures remained relatively stable and we have not had to significantly increase the norepinephrine. Renal function continues to deteriorate with further elevation in creatinine up to 5.5, she does continue to make a low level of urine in the range of 15-20 mL per hour. Liver function studies have increased significantly with marked elevation in AST and ALT over the past 2 days. Family has arrived from [place] and I have spent time this morning revealing within the current situation they are aware of her very poor prognosis. - Patient Data Vitals - Most Recent: Last Vital Signs Temp 99.3 F 07/15/17 07:48 Pulse 120 H 07/15/17 10:00 Resp 29 H 07/15/17 10:00 BP 135/54 L 07/15/17 10:00 Pulse Ox 93 L 07/15/17 10:00 Weight - Most Recent: 416 lb 8 oz I&O - Last 24 Hours: Intake & Output 07/14/17 07/15/17 07/15/17 22:59 06:59 14:59 Intake Total 1243 678 Output Total 165 160 83 Balance 1078 518 -83 Lab Results Last 24 Hours: Laboratory Results - last 24 hr 07/14/17 07/14/17 07/14/17 Range/Units 17:00 17:00 17:00 WBC 15.8 H (4.5-11.0) K/uL RBC 3.18 L (3.30-5.50) M/uL Hgb 9.2 L (12.0-15.0) g/dL Hct 27.2 L (36.0-48.0) % MCV 86 (80-98) fL MCH 29 (27-31) pg MCHC 34 (32-36) % Plt Count 117 L (150-400) K/uL Add Manual Diff Yes Neutrophils % (Manual) 86 H (36-66) % Band Neutrophils % 4 L (5-11) % Lymphocytes % (Manual) 6 L (24-44) % Monocytes % (Manual) 4 (2-6) % Anisocytosis Ovalocytes Puncture Site A-line ABG pH 7.313 L (7.350-7.450) ABG pCO2 32.6 L (35.0-42.0) mmHg ABG pO2 112.0 H (75.0-100.0) mmHg ABG HCO3 16.1 L (22.0-26.0) mmol/L ABG Total CO2 15.3 L (21.0-25.0) mmol/L ABG O2 Saturation 97.5 (95.0-98.0) % ABG O2 Content 12.5 L (15.0-23.0) %vol ABG Base Excess -8.8 mm/L ABG Hemoglobin 9.2 L (12.0-16.0) g/dL ABG Oxyhemoglobin 95.5 % ABG Carboxyhemoglobin 1.3 (0.0-1.6) % ABG Methemoglobin 0.8 % [place] Test A-line O2 Delivery Device Ventilator Oxygen Flow Rate L Sodium 130 L (140-148) mmol/L Potassium 5.2 (3.6-5.2) mmol/L Chloride 99 L (100-108) mmol/L Carbon Dioxide 17 L (21-32) mmol/L Anion Gap 19.2 H (5.0-14.0) mmol/L BUN 63 H (7-18) mg/dL Creatinine 5.2 H* (0.6-1.0) mg/dL Est Cr Clr Drug Dosing 9.44 mL/min Estimated GFR (MDRD) 9 L (>60) Glucose 224 H (74-106) mg/dL Lactic Acid (0.4-2.0) mmol/L Calcium 7.2 L (8.5-10.1) mg/dL Phosphorus (2.5-4.9) mg/dL Magnesium (1.8-2.4) mg/dL Total Bilirubin (0.2-1.0) mg/dL AST (15-37) U/L ALT (12-78) U/L Alkaline Phosphatase (46-116) U/L Total Protein (6.4-8.2) g/dL Albumin (3.4-5.0) g/dL Globulin (2.3-3.5) g/dL Albumin/Globulin Ratio (1.2-2.2) Lipase (73-393) U/L 07/15/17 07/15/17 07/15/17 Range/Units 06:00 06:00 06:00 WBC 19.9 H (4.5-11.0) K/uL RBC 3.38 (3.30-5.50) M/uL Hgb 9.6 L (12.0-15.0) g/dL Hct 29.4 L (36.0-48.0) % MCV 87 (80-98) fL MCH 28 (27-31) pg MCHC 33 (32-36) % Plt Count 130 L (150-400) K/uL Add Manual Diff Yes Neutrophils % (Manual) 81 H (36-66) % Band Neutrophils % 9 (5-11) % Lymphocytes % (Manual) 6 L (24-44) % Monocytes % (Manual) 4 (2-6) % Anisocytosis Moderate H Ovalocytes Few Puncture Site A-line ABG pH 7.197 L* (7.350-7.450) ABG pCO2 47.7 H (35.0-42.0) mmHg ABG pO2 68.7 L (75.0-100.0) mmHg ABG HCO3 17.8 L (22.0-26.0) mmol/L ABG Total CO2 17.3 L (21.0-25.0) mmol/L ABG O2 Saturation 89.4 L (95.0-98.0) % ABG O2 Content 12.7 L (15.0-23.0) %vol ABG Base Excess -9.5 mm/L ABG Hemoglobin 10.2 L (12.0-16.0) g/dL ABG Oxyhemoglobin 87.8 % ABG Carboxyhemoglobin 0.8 (0.0-1.6) % ABG Methemoglobin 1.0 % [place] Test A-line O2 Delivery Device Ventilator Oxygen Flow Rate L Sodium 126 L (140-148) mmol/L Potassium 4.8 (3.6-5.2) mmol/L Chloride 96 L (100-108) mmol/L Carbon Dioxide 19 L (21-32) mmol/L Anion Gap 15.8 H (5.0-14.0) mmol/L BUN 71 H (7-18) mg/dL Creatinine 5.5 H* (0.6-1.0) mg/dL Est Cr Clr Drug Dosing 8.93 mL/min Estimated GFR (MDRD) 8 L (>60) Glucose 136 H (74-106) mg/dL Lactic Acid (0.4-2.0) mmol/L Calcium 7.0 L (8.5-10.1) mg/dL Phosphorus 7.1 H (2.5-4.9) mg/dL Magnesium 4.4 H D (1.8-2.4) mg/dL Total Bilirubin 1.2 H (0.2-1.0) mg/dL AST 1273 H (15-37) U/L ALT 1714 H (12-78) U/L Alkaline Phosphatase 124 H D (46-116) U/L Total Protein 5.4 L (6.4-8.2) g/dL Albumin 1.9 L (3.4-5.0) g/dL Globulin 3.5 (2.3-3.5) g/dL Albumin/Globulin Ratio 0.5 L (1.2-2.2) Lipase (73-393) U/L 07/15/17 07/15/17 Range/Units 06:00 06:00 WBC (4.5-11.0) K/uL RBC (3.30-5.50) M/uL Hgb (12.0-15.0) g/dL Hct (36.0-48.0) % MCV (80-98) fL MCH (27-31) pg MCHC (32-36) % Plt Count (150-400) K/uL Add Manual Diff Neutrophils % (Manual) (36-66) % Band Neutrophils % (5-11) % Lymphocytes % (Manual) (24-44) % Monocytes % (Manual) (2-6) % Anisocytosis Ovalocytes Puncture Site ABG pH (7.350-7.450) ABG pCO2 (35.0-42.0) mmHg ABG pO2 (75.0-100.0) mmHg ABG HCO3 (22.0-26.0) mmol/L ABG Total CO2 (21.0-25.0) mmol/L ABG O2 Saturation (95.0-98.0) % ABG O2 Content (15.0-23.0) %vol ABG Base Excess mm/L ABG Hemoglobin (12.0-16.0) g/dL ABG Oxyhemoglobin % ABG Carboxyhemoglobin (0.0-1.6) % ABG Methemoglobin % [place] Test O2 Delivery Device Oxygen Flow Rate L Sodium (140-148) mmol/L Potassium (3.6-5.2) mmol/L Chloride (100-108) mmol/L Carbon Dioxide (21-32) mmol/L Anion Gap (5.0-14.0) mmol/L BUN (7-18) mg/dL Creatinine (0.6-1.0) mg/dL Est Cr Clr Drug Dosing mL/min Estimated GFR (MDRD) (>60) Glucose (74-106) mg/dL Lactic Acid 1.5 (0.4-2.0) mmol/L Calcium (8.5-10.1) mg/dL Phosphorus (2.5-4.9) mg/dL Magnesium (1.8-2.4) mg/dL Total Bilirubin (0.2-1.0) mg/dL AST (15-37) U/L ALT (12-78) U/L Alkaline Phosphatase (46-116) U/L Total Protein (6.4-8.2) g/dL Albumin (3.4-5.0) g/dL Globulin (2.3-3.5) g/dL Albumin/Globulin Ratio (1.2-2.2) Lipase 42 L (73-393) U/L Miguel Results Last 24 Hours: Microbiology 07/12/17 10:20 Aerobic Blood Culture - Preliminary Blood - Central Line NO GROWTH AFTER 3 DAYS Anaerobic Blood Culture - Preliminary NO GROWTH AFTER 3 DAYS 07/12/17 10:18 Aerobic Blood Culture - Preliminary Blood - A-Line NO GROWTH AFTER 3 DAYS Anaerobic Blood Culture - Preliminary NO GROWTH AFTER 3 DAYS 07/14/17 12:10 Gram Stain - Final Endotrachial Tube Med Orders - Current: Current Medications Albuterol/Ipratropium (Duoneb 3.0-0.5 Mg/3 Ml) 3 ml INH QIDRT ROB Last Admin: 07/15/17 06:58 Dose: 3 ml Albuterol/Ipratropium (Duoneb 3.0-0.5 Mg/3 Ml) 3 ml INH ASDIRECTED PRN PRN Reason: BREATHING Last Admin: 07/13/17 00:30 Dose: 3 ml Dextrose/Water (Dextrose 50% In Water) 50 ml IVPUSH ONETIME PRN PRN Reason: ACCUCHECK LESS THAN 70 Glucagon (Glucagen) 1 mg IM ONETIME PRN PRN Reason: ACCUCHECK LESS THAN 70 Heparin Sodium (Porcine) (Heparin Sodium) 5,000 units SUBCUT Q12H ROB Last Admin: 07/15/17 06:20 Dose: 5,000 units Heparin Sodium (Porcine) (Heparin Lock Flush 100 Units/Ml) 500 units IVPUSH ASDIRECTED PRN PRN Reason: [employer]ICER Hydromorphone HCl (Dilaudid Soft Sugar Cutter 15 Mg In Ns 30 Ml) 0 mg IV ASDIRECTED PRN; Protocol PRN 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 Last Admin: 07/12/17 10:01 Dose: 15 mg Hydroxyzine HCl (Vistaril) 75 - 100 mg IM Q4H PRN PRN Reason: pain Propofol (Diprivan 100 Ml) 100 mls @ 4.776 mls/hr IV TITRATE ROB; 5 MCG/KG/MIN PRN Reason: Protocol Last Admin: 07/15/17 07:41 Dose: 15 mcg/kg/min, 14.329 mls/hr Heparin Sodium (Porcine) 5,000 (units/ Sodium Chloride) 501 mls @ 5 mls/hr IV ASDIRECTED ROB Last Admin: 07/13/17 17:11 Dose: 5 mls/hr Heparin Sodium (Porcine) 5,000 (units/ Sodium Chloride) 501 mls @ 1 mls/hr IV ASDIRECTED ROB Last Admin: 07/13/17 17:23 Dose: 1 mls/hr Linezolid 600 mg/ Premix 300 mls @ 300 mls/hr IV Q12H ROB Last Admin: 07/15/17 09:15 Dose: 300 mls/hr Norepinephrine Bitartrate 16 (mg/ Dextrose/Water) 500 mls @ 3.75 mls/hr IV TITRATE ROB; 2 MCG/MIN PRN Reason: Protocol Last Titration: 07/14/17 23:02 Dose: 6 mcg/min, 11.25 mls/hr Insulin Human Regular 100 unit (/ Sodium Chloride) 100 mls @ 0.5 mls/hr IV TITRATE ROB; 0.5 UNITS/HR PRN Reason: Protocol Last Admin: 07/15/17 08:05 Dose: 3 units/hr, 3 mls/hr Meropenem 1 gm/ Sodium (Chloride) 50 mls @ 100 mls/hr IV Q12H ROB Last Admin: 07/15/17 06:20 Dose: 100 mls/hr Sodium Chloride (Normal Saline) 500 mls @ 0 mls/hr IV ASDIRECTED ROB PRN Reason: KVO Diltiazem HCl 100 mg/ Sodium (Chloride) 100 mls @ 5 mls/hr IV TITRATE ROB; 5 MG /HR PRN Reason: Protocol Last Admin: 07/15/17 10:00 Dose: 10 mg/hr, 10 mls/hr Levofloxacin/Dextrose 500 mg/ (Premix) 100 mls @ 100 mls/hr IV Q48H ROB Ketoconazole (Nizoral 2% Crm) 0 gm TOP BID [facility] Last Admin: 07/15/17 09:16 Dose: 1 applic Metoclopramide HCl (Reglan) 10 mg IVPUSH Q6H PRN PRN Reason: NAUSEA NOT CONTROL BY ZOFRAN Naloxone HCl (Narcan) 0.1 mg IV ASDIRECTED PRN PRN Reason: decreased respiratory rate Check Scopolamine (Patch Daily) 1 each TOP DAILY [facility] Last Admin: 07/15/17 09:11 Dose: Not Given Ondansetron HCl (Zofran) 4 mg IVPUSH Q4H PRN PRN Reason: Nausea/Vomiting Last Admin: 07/11/17 09:06 Dose: 4 mg Discontinued Medications Acetaminophen (Tylenol Extra Strength) 1,000 mg PO ONETIME ONE Stop: 07/10/17 05:52 Last Admin: 07/10/17 06:22 Dose: 1,000 mg Acetaminophen (Tylenol) 650 mg PO Q6H [facility] Last Admin: 07/12/17 08:06 Dose: Not Given Acetaminophen (Tylenol) 650 mg RECTAL Q4H PRN PRN Reason: Fever Last Admin: 07/14/17 22:21 Dose: 650 mg Albuterol/Ipratropium (Duoneb 3.0-0.5 Mg/3 Ml) 3 ml NEB ONETIME ONE Stop: 07/10/17 06:24 Last Admin: 07/10/17 07:14 Dose: 3 ml Aspirin (Ecotrin) 325 mg PO ONETIME ONE Stop: 07/10/17 07:16 Last Admin: 07/10/17 07:25 Dose: 325 mg Aspirin (Aspirin) 324 mg PO DAILY [facility] Last Admin: 07/11/17 08:27 Dose: 324 mg Baclofen (Lioresal) 10 mg PO TID [facility] Last Admin: 07/11/17 21:07 Dose: 10 mg Bumetanide (Bumex) 2 mg IVPUSH ONETIME ONE Stop: 07/12/17 10:08 Last Admin: 07/12/17 10:26 Dose: 2 mg Bupropion HCl (Wellbutrin Sr) 150 mg PO BID [facility] Last Admin: 07/11/17 21:08 Dose: 150 mg Cefoxitin Sodium (Mefoxin) Confirm Administered Dose 2 gm .ROUTE .STK-MED ONE Stop: 07/10/17 06:43 Last Admin: 07/10/17 08:17 Dose: 2 gm Celecoxib (Celebrex) 200 mg PO ONETIME ONE Stop: 07/10/17 05:52 Last Admin: 07/10/17 06:21 Dose: 200 mg Celecoxib (Celebrex) 200 mg PO DAILY@0800 [facility] Last Admin: 07/12/17 08:06 Dose: Not Given Ropivacaine 60 ml/Dexamethasone 8 mg/Epinephrine HCl 0.4 mg/ Sodium Chloride 17.6 ml 0 ml NERVRT ASDIRECTED [facility] Last Admin: 07/10/17 08:06 Dose: 80 syringe Cyanocobalamin (Vitamin B12) 1,000 mcg IM ONETIME ONE Stop: 07/12/17 09:01 Last Admin: 07/12/17 09:20 Dose: 1,000 mcg Dexamethasone (Dexamethasone) Confirm Administered Dose 4 mg .ROUTE .STK-MED ONE Stop: 07/10/17 07:05 Diltiazem HCl (Diltiazem) 20 mg IVPUSH ONETIME ONE Stop: 07/14/17 19:15 Last Admin: 07/14/17 19:39 Dose: 20 mg Diphenhydramine HCl (Benadryl) 25 - 50 mg IVPUSH Q4H PRN PRN Reason: ITCHING Ephedrine Sulfate (Ephedrine Sulfate) Confirm Administered Dose 50 mg .ROUTE .STK-MED ONE Stop: 07/10/17 07:53 Fentanyl (Sublimaze) Confirm Administered Dose 250 mcg .ROUTE .STK-MED ONE Stop: 07/10/17 07:05 Fluoxetine HCl (Prozac) 60 mg PO DAILY [facility] Last Admin: 07/11/17 08:27 Dose: 60 mg Furosemide (Lasix) 40 mg IVPUSH ONETIME STA Stop: 07/12/17 01:54 Last Admin: 07/12/17 02:06 Dose: 40 mg Furosemide (Lasix) Confirm Administered Dose 40 mg .ROUTE .STK-MED ONE Stop: 07/12/17 01:58 Last Admin: 07/12/17 04:02 Dose: 40 mg Gabapentin (Neurontin) 300 mg PO ONETIME ONE Stop: 07/10/17 05:52 Last Admin: 07/10/17 06:21 Dose: 300 mg Gabapentin (Neurontin) 300 mg PO TID [facility] Last Admin: 07/11/17 08:26 Dose: 300 mg Glycopyrrolate (Robinul) Confirm Administered Dose 1 mg .ROUTE .STK-MED ONE Stop: 07/10/17 07:05 Heparin Sodium (Porcine) (Heparin Sodium) Confirm Administered Dose 5,000 units .ROUTE .STK-MED ONE Stop: 07/12/17 02:38 Last Admin: 07/12/17 04:03 Dose: 5,000 units Hydrochlorothiazide (Hydrochlorothiazide) 25 mg PO DAILY [facility] Last Admin: 07/11/17 08:24 Dose: 25 mg Hydroxyzine HCl (Vistaril) 100 mg IM ONETIME ONE Stop: 07/10/17 10:40 Last Admin: 07/10/17 10:42 Dose: 100 mg Lidocaine HCl/Dextrose (Lidocaine 2 Gm/D5w 500 Ml) 2 gm in 500 mls @ 30 mls/hr IV .[id number] [facility] PRN Reason: 2 MG/MIN Stop: 07/11/17 10:00 Last Admin: 07/10/17 12:21 Dose: 2 mg/min, 30 mls/hr Ketamine HCl 100 mg/ Sodium (Chloride) 100 mls @ 16.5 mls/hr IV ASDIRECTED [facility] PRN Reason: 5 MCG/KG/MIN Dextrose/Lactated Ringer's (Dextrose 5%-Lactated Ringers) 1,000 mls @ 100 mls/ hr IV ASDIRECTED [facility] Last Admin: 07/10/17 07:00 Dose: 100 mls/hr Cefoxitin Sodium 2 gm/ Sodium (Chloride) 50 mls @ 100 mls/hr IV ONETIME ONE Stop: 07/10/17 07:59 Last Admin: 07/10/17 07:25 Dose: 100 mls/hr Dextrose/Lactated Ringer's (Dextrose 5%-Lactated Ringers) 1,000 mls @ 175 mls/ hr IV ASDIRECTED [facility] Last Admin: 07/11/17 06:25 Dose: 175 mls/hr Multivitamins/Minerals 10 ml/Thiamine HCl 200 mg/ Chromium/Copper/Manganese/ Seleni/Zn 1 ml/ Dextrose/Lactated Ringer's 1,013 mls @ 175 mls/hr IV DAILY@ 1600 [facility] Last Admin: 07/10/17 17:50 Dose: 175 mls/hr Cefoxitin Sodium 2 gm/ Sodium (Chloride) 50 mls @ 100 mls/hr IV Q6H [facility] Stop: 07/11/17 07:59 Last Admin: 07/11/17 08:20 Dose: 100 mls/hr Lactated Ringer's (Ringers, Lactated) 1,000 mls @ 100 mls/hr IV ASDIRECTED [facility] Last Admin: 07/11/17 08:20 Dose: 100 mls/hr Magnesium Sulfate 2 gm/ Premix 50 mls @ 25 mls/hr IV Q6H [facility] Stop: 07/14/17 05:59 Last Admin: 07/14/17 03:25 Dose: 25 mls/hr Multivitamins/Minerals 10 ml/Thiamine HCl 200 mg/ Chromium/Copper/Manganese/ Seleni/Zn 1 ml/ Lactated Ringer's 1,013 mls @ 100 mls/hr IV DAILY@1600 [facility] Last Admin: 07/11/17 17:11 Dose: 100 mls/hr Propofol (Diprivan 100 Ml) Confirm Administered Dose 100 mls @ as directed .ROUTE .STK-MED ONE Stop: 07/12/17 02:49 Last Admin: 07/12/17 05:23 Dose: 100 mg Norepinephrine Bitartrate 4 mg (/ Dextrose/Water) 250 mls @ 7.5 mls/hr IV TITRATE ROB; 2 MCG/MIN PRN Reason: Protocol Last Admin: 07/13/17 05:29 Dose: 20 mcg/min, 75 mls/hr Clindamycin Phosphate 600 mg/ (Sodium Chloride) 54 mls @ 100 mls/hr IV Q8H ROB Last Admin: 07/13/17 04:02 Dose: 100 mls/hr Meropenem 1 gm/ Sodium (Chloride) 100 mls @ 200 mls/hr IV Q8H ROB Last Admin: 07/13/17 04:31 Dose: 200 mls/hr Dextrose/Water (Dextrose 5% In Water) Confirm Administered Dose 250 mls @ as directed .ROUTE .STK-MED ONE Stop: 07/12/17 03:50 Last Admin: 07/12/17 04:04 Dose: Not Given Vasopressin 100 units/ (Dextrose/Water) 255 mls @ 4.59 mls/hr IV TITRATE ROB; 0.03 UNITS/MIN PRN Reason: Protocol Last Titration: 07/14/17 03:01 Dose: 0.02 units/min, 3.06 mls/hr Dextrose/Water (Dextrose 5% In Water) Confirm Administered Dose 250 mls @ as directed .ROUTE .STK-MED ONE Stop: 07/12/17 04:30 Last Admin: 07/12/17 05:28 Dose: 250 ml Sodium Chloride (Normal Saline) 1,000 mls @ 999 mls/hr IV .BOLUS ONE Stop: 07/12/17 04:51 Last Admin: 07/12/17 03:51 Dose: 999 mls/hr Sodium Chloride (Normal Saline) 1,000 mls @ 500 mls/hr IV ASDIRECTED ROB Sodium Chloride (Normal Saline) 1,000 mls @ 250 mls/hr IV ASDIRECTED ROB Last Infusion: 07/12/17 08:24 Dose: 0 mls/hr Lactated Ringer's (Ringers, Lactated) 500 mls @ 500 mls/hr IV ONETIME ONE Stop: 07/12/17 16:50 Last Admin: 07/12/17 15:35 Dose: 500 mls/hr Dobutamine HCl/Dextrose (Dobutamine In D5w 250 Mg/250 Ml) 250 mg in 250 mls @ 19.105 mls/hr IV TITRATE ROB; 2 MCG/KG/MIN PRN Reason: Protocol Last Titration: 07/13/17 12:40 Dose: 0 mcg/kg/min, 0 mls/hr Lactated Ringer's (Ringers, Lactated) 1,000 mls @ 500 mls/hr IV ASDIRECTED ROB Stop: 07/13/17 04:15 Norepinephrine Bitartrate 8 mg (/ Dextrose/Water) 500 mls @ 7.5 mls/hr IV TITRATE ROB; 2 MCG/MIN PRN Reason: Protocol Meropenem 1 gm/ Sodium (Chloride) 50 mls @ 100 mls/hr IV Q8H ROB Last Admin: 07/14/17 03:13 Dose: 100 mls/hr Vasopressin 40 units/ Dextrose (/Water) 100 mls @ 4.5 mls/hr IV TITRATE ROB; 0.03 UNITS/MIN PRN Reason: Protocol Last Titration: 07/14/17 18:00 Dose: 0 units/min, 0 mls/hr Levofloxacin/Dextrose 750 mg/ (Premix) 150 mls @ 100 mls/hr IV ONETIME ONE Stop: 07/14/17 23:30 Last Admin: 07/14/17 22:38 Dose: 100 mls/hr Influenza Virus Vaccine (Fluzone Quad 4463-0248) 60 mcg IM .ONCE ONE Stop: 07/10/17 06:31 Last Admin: 07/10/17 12:24 Dose: Not Given Influenza Virus Vaccine (Fluzone Quad [id number]) 60 mcg IM .ONCE ONE Stop: 07/12/17 11:31 Last Admin: 07/12/17 16:05 Dose: Not Given Insulin Aspart (Novolog) 5 unit SUBCUT ONETIME ONE Stop: 07/10/17 10:16 Last Admin: 07/10/17 10:12 Dose: 5 units Insulin Aspart (Novolog) 0 unit SUBCUT Q6H PRN; Protocol PRN Reason: PER CORRECTIONAL DOSING Last Admin: 07/12/17 16:03 Dose: 7 units Insulin Aspart (Novolog) 0 unit SUBCUT ONETIME STA Stop: 07/10/17 22:23 Last Admin: 07/10/17 22:43 Dose: 20 units Insulin Aspart (Novolog) 0 unit SUBCUT Q6H ROB PRN Reason: Protocol Last Admin: 07/13/17 03:41 Dose: 15 units Insulin Aspart (Novolog) 14 unit SUBCUT ONETIME ONE Stop: 07/12/17 23:41 Last Admin: 07/12/17 23:51 Dose: 14 units Insulin Aspart (Novolog) 16 unit SUBCUT ONETIME ONE Stop: 07/13/17 06:35 Last Admin: 07/13/17 06:45 Dose: 16 units Insulin Detemir (Levemir) 35 unit SUBCUT BEDTIME [facility] Last Admin: 07/11/17 06:22 Dose: Not Given Insulin Detemir (Levemir) 0 unit SUBCUT ONETIME ONE Stop: 07/10/17 22:28 Last Admin: 07/10/17 22:43 Dose: 45 units Iohexol (Omnipaque-300) 50 ml PO .ASDIRECTED STA Stop: 07/11/17 03:45 Last Admin: 07/11/17 03:56 Dose: 50 ml Isosorbide Mononitrate (Imdur) 30 mg PO DAILY [facility] Last Admin: 07/11/17 08:24 Dose: 30 mg Ketamine HCl (Ketalar) 30 mg IV ASDIRECTED [facility] Labetalol HCl (Normodyne) 5 - 15 mg IVPUSH Q1H PRN PRN Reason: SBP over 160 OR DBP over 95 Levothyroxine Sodium (Levothyroxine) 75 mcg PO DAILY@0730 [facility] Last Admin: 07/12/17 08:06 Dose: Not Given Lidocaine HCl (Xylocaine 2%) 145 mg IVPUSH ONETIME ONE Stop: 07/10/17 07:31 Last Admin: 07/10/17 12:23 Dose: Not Given Lisinopril (Prinivil) 40 mg PO DAILY [facility] Last Admin: 07/11/17 08:27 Dose: 40 mg Methylprednisolone Sodium Succinate (Solu-Medrol) 125 mg IVPUSH ONETIME ONE Stop: 07/12/17 03:59 Last Admin: 07/12/17 04:15 Dose: 125 mg Metoprolol Tartrate (Lopressor) 100 mg PO BID [facility] Last Admin: 07/11/17 21:07 Dose: 100 mg Metoprolol Tartrate (Lopressor) 5 mg IV Q6H [facility] Last Admin: 07/12/17 09:14 Dose: 5 mg Miscellaneous Information (Remove Patch) 1 ea TRDERM ONETIME ONE Stop: 07/12/17 10:01 Last Admin: 07/12/17 09:25 Dose: Not Given Neostigmine Methylsulfate (Neostigmine) Confirm Administered Dose 5 mg .ROUTE .STK-MED ONE Stop: 07/10/17 07:05 Nitroglycerin (Nitro-Bid 2%) Confirm Administered Dose 1 gm .ROUTE .STK-MED ONE Stop: 07/12/17 10:00 Last Admin: 07/12/17 10:15 Dose: 1 gm Nitroglycerin (Nitro-Bid 2%) 1 gm TOP ONETIME ONE Stop: 07/12/17 10:00 Last Admin: 07/13/17 09:03 Dose: 1 gm Ondansetron HCl (Zofran) Confirm Administered Dose 4 mg .ROUTE .STK-MED ONE Stop: 07/10/17 07:05 Pantoprazole Sodium (Protonix Iv) 40 mg IVPUSH Q24H [facility] Last Admin: 07/11/17 13:55 Dose: 40 mg Pantoprazole Sodium (Protonix Iv) 40 mg IV Q24H [facility] Last Admin: 07/14/17 11:35 Dose: 40 mg Phenylephrine HCl (Ran-Synephrine) Confirm Administered Dose 10 mg .ROUTE .STK- MED ONE Stop: 07/10/17 08:52 Propofol (Diprivan 20 Ml) Confirm Administered Dose 200 mg .ROUTE .STK-MED ONE Stop: 07/10/17 07:05 Propofol (Diprivan 20 Ml) 100 mg IVPUSH ONETIME ONE Stop: 07/12/17 02:31 Last Admin: 07/12/17 04:24 Dose: Not Given Propofol (Diprivan 20 Ml) 100 mg IVPUSH ONETIME ONE Stop: 07/12/17 02:41 Last Admin: 07/12/17 04:25 Dose: Not Given Rocuronium [place] (Zemuron) Confirm Administered Dose 50 mg .ROUTE .STK-MED ONE Stop: 07/10/17 07:05 Rocuronium [place] (Zemuron) Confirm Administered Dose 50 mg .ROUTE .STK-MED ONE Stop: 07/10/17 08:57 Rocuronium [place] (Zemuron) 15 mg IV ONETIME ONE Stop: 07/12/17 02:31 Last Admin: 07/12/17 04:24 Dose: Not Given Scopolamine (Transderm-Scop) 1.5 mg TRDERM ONETIME ONE Stop: 07/10/17 06:01 Last Admin: 07/10/17 06:22 Dose: 1.5 mg Sodium Polystyrene Sulfonate (Kayexalate) 45 gm RECTAL NOW ONE Stop: 07/12/17 23:41 Last Admin: 07/13/17 00:15 Dose: 45 gm Sodium Polystyrene Sulfonate (Kayexalate) 30 gm RECTAL NOW ONE Stop: 07/13/17 06:34 Last Admin: 07/13/17 06:57 Dose: 30 gm Succinylcholine Chloride (Quelicin) Confirm Administered Dose 200 mg .ROUTE .STK -MED ONE Stop: 07/10/17 07:05 Vasopressin (Vasopressin) Confirm Administered Dose 100 units .ROUTE .STK-MED ONE Stop: 07/12/17 04:29 Last Admin: 07/12/17 04:48 Dose: 100 units - Exam Quality Assessment: Supplemental Oxygen (Ventilator), Urine Catheter, DVT Prophylaxis. No: Skin Breakdown General: Sedated, Lethargic HEENT: Pupils Equal, Pupils Reactive Lungs: Rales, Rhonchi, Wheezing. No: Rub, Stridor Cardiovascular: No Murmurs, Irregular Rhythm, Tachycardia GI/Abdominal Exam: Soft, No Organomegaly, No Distention Extremities: Pedal Edema Skin: Warm, Dry Consult PN Assessment/Plan Procedures: Procedures BLOOD TYPING SEROLOGIC ABO (02/04/16) BLOOD TYPING SEROLOGIC RH(D) (02/04/16) COMPLETE CBC W/AUTO DIFF WBC (12/09/15) COMPREHEN METABOLIC PANEL (12/09/15) EMERGENCY DEPT VISIT (12/09/15) POLYSOM 6/> YRS 4/> BEBE (05/23/16) POLYSOM 6/>YRS CPAP 4/> PARM (11/29/16) RBC ANTIBODY SCREEN (02/04/16) ROUTINE VENIPUNCTURE (12/09/15) URINALYSIS AUTO W/SCOPE (12/09/15) Problem List Initiated/Reviewed/Updated: Yes My Orders Last 24 Hours: My Active Orders 07/14/17 17:00 Sodium Chloride 0.9% [Normal Saline] 500 ml IV ASDIRECTED 07/14/17 18:00 Meropenem [Merrem] 1 gm Sodium Chloride 0.9% [Normal Saline] 50 ml IV Q12H 07/14/17 19:15 Diltiazem [Cardizem] 100 mg Sodium Chloride 0.9% [Normal Saline] 100 ml IV TITRATE 07/14/17 22:00 CULTURE BLOOD [BC] Routine 07/15/17 05:00 CXR [Chest 1V Frontal] [CR] DAILY 07/15/17 17:00 BLOOD GAS ARTERIAL [BG] Stat CBC WITH AUTO DIFF [HEME] Stat COMPREHENSIVE METABOLIC PN,CMP [CHEM] Stat 07/16/17 05:00 CXR [Chest 1V Frontal] [CR] DAILY BLOOD GAS ARTERIAL [BG] Timed CBC WITH AUTO DIFF [HEME] Timed COMPREHENSIVE METABOLIC PN,CMP [CHEM] Timed MAGNESIUM [CHEM] Timed PHOSPHORUS [CHEM] Timed 07/16/17 22:00 Levofloxacin/Dextrose 5%-Water [Levaquin in D5W 500 MG/100 ML] 500 mg Premix Bag 1 bag IV Q48H 07/17/17 05:00 CXR [Chest 1V Frontal] [CR] DAILY 07/18/17 05:00 CXR [Chest 1V Frontal] [CR] DAILY Plan: ASSESSMENT AND RECOMMENDATIONS ACUTE HYPOXIC AND HYPERCAPNIC RESPIRATORY FAILURE-bilateral pulmonary infiltrates consistent with probable pneumonia and ARDS. Unfortunately she has required increased level of oxygen support over the past 24 hours to maintain borderline saturations. -IV meropenem and Zyvox, levofloxacin -Intubation and mechanical ventilation -Minimize IV fluids -Blood and sputum cultures negative thus far -DVT prophylaxis -IV Pepcid for stress ulcer prophylaxis ACUTE LIVER INJURY-likely ischemic in nature related to use of IV pressors, medications have been reviewed -Discontinue Protonix and acetaminophen -Consider CT scan of the abdomen, at the present time tentative respiratory status does not allow significant movement as oxygen saturations drop precipitously -Recheck liver enzymes later today and again tomorrow SEPTIC SHOCK- hemodynamically more stable over the past few days, currently off of vasopressin, on a moderate dose of norepinephrine -IV norepinephrine to maintain mean arterial pressure greater than 65 -Minimize fluids secondary to underlying ARDS -Blood and sputum cultures pending -IV vancomycin, meropenem, and levofloxacin as above -With recurrent temperature elevation last night repeat blood cultures were obtained STATUS POST GASTRIC BYPASS SURGERY -Postoperative care per Dr. Sunshine CHRONIC KIDNEY DISEASE STAGE III-acute on chronic kidney injury secondary to hypotension and hemodynamic compromise. Renal function worsened over the past 24 hours with increasing creatinine to 5.5. Now that hemodynamics have improved expect improvement in renal function over the next day or 2. She does continue to make a small amount of urine approximately 15 to 20 mL per hour. -Closely monitor urine output and renal function TYPE 2 DIABETES MELLITUS-glucose levels improved with continuous infusion of insulin -Level III continuous infusion of insulin -Monitor regular glucose levels per protocol One hour of critical care time was spent in the direct care and management of the patient in the intensive care unit this morning
[2017-07-15] MEDS: Famotidine 20 MG/2 ML SDV IVPUSH SCH (11:15)
[2017-07-15] MEDS: Norepinephrine 8 MG in Dextrose 5% in Water 242 ML IV SCH ×2 (12:32)
[2017-07-16] MEDS: Diltiazem 100 MG in Sodium Chloride 0.9% 100 ML IV SCH (00:41)
[2017-07-16] MEDS: Heparin Sodium 5,000 Units/ML Vial SUBCUT SCH (05:30)
[2017-07-16] MEDS ORDERED: Sodium Polystyrene Sulfonate 15 GM/60 ML Susp 60 ML Bot RECTAL ONE (06:26)
[2017-07-16] MEDS: Albuterol/Ipratropium 3.0-0.5 MG/3 ML Neb Soln INH SCH ×2 (07:03→10:39)
[2017-07-16] MEDS: Famotidine 20 MG/2 ML SDV IVPUSH SCH (08:34)
[2017-07-16] MEDS ORDERED: Vancomycin 1 GM SDV IV SCH (09:00)
[2017-07-16] MEDS: CHECK SCOPOLAMINE PATCH DAILY TOP SCH (09:25)
--- NOTE | 2017-07-16 10:13 | PCM.CONSN ---
- General Info Date of Service: 07/16/17 Subjective Update: Ms. Gaston experienced a recurrent temperature elevation last night and white blood cell count continues to climb despite broad-spectrum IV antibiotic therapy. Chest x-ray shows modest improvement today and there is no other obvious source of infection identified. Blood cultures obtained with temperature elevation 36 hours ago remain negative. Liver enzymes have improved over the past 24 hours, unfortunately creatinine continues to climb although urine output was significantly better over the last 24 hours, likely indicating that renal function is starting to improve. There is ongoing metabolic acidosis with no significant respiratory compensation. Lactic acid level is within normal range. She remains in atrial fibrillation with adequate rate control on IV diltiazem. - Patient Data Vitals - Most Recent: Last Vital Signs Temp 98.5 F 07/16/17 07:48 Pulse 96 07/16/17 07:03 Resp 24 H 07/16/17 09:00 BP 116/33 L 07/16/17 09:00 Pulse Ox 96 07/16/17 09:00 Weight - Most Recent: 424 lb I&O - Last 24 Hours: Intake & Output 07/15/17 07/16/17 07/16/17 21:59 06:59 14:59 Intake Total Output Total 35 Balance -35 Lab Results Last 24 Hours: Laboratory Results - last 24 hr 07/15/17 07/15/17 07/15/17 Range/Units 06:00 06:00 17:00 WBC 21.1 H (4.5-11.0) K/uL RBC 3.42 (3.30-5.50) M/uL Hgb 9.9 L (12.0-15.0) g/dL Hct 29.7 L (36.0-48.0) % MCV 87 (80-98) fL MCH 29 (27-31) pg MCHC 33 (32-36) % Plt Count 144 L (150-400) K/uL Add Manual Diff Yes Neutrophils % (Manual) 84 H (36-66) % Band Neutrophils % 7 (5-11) % Lymphocytes % (Manual) 5 L (24-44) % Monocytes % (Manual) 3 (2-6) % Eosinophils % (Manual) 1 L (2-4) % Anisocytosis Ovalocytes Puncture Site ABG pH (7.350-7.450) ABG pCO2 (35.0-42.0) mmHg ABG pO2 (75.0-100.0) mmHg ABG HCO3 (22.0-26.0) mmol/L ABG Total CO2 (21.0-25.0) mmol/L ABG O2 Saturation (95.0-98.0) % ABG O2 Content (15.0-23.0) %vol ABG Base Excess mm/L ABG Hemoglobin (12.0-16.0) g/dL ABG Oxyhemoglobin % ABG Carboxyhemoglobin (0.0-1.6) % ABG Methemoglobin % [place] Test O2 Delivery Device Oxygen Flow Rate L Sodium (140-148) mmol/L Potassium (3.6-5.2) mmol/L Chloride (100-108) mmol/L Carbon Dioxide (21-32) mmol/L Anion Gap (5.0-14.0) mmol/L BUN (7-18) mg/dL Creatinine (0.6-1.0) mg/dL Est Cr Clr Drug Dosing mL/min Estimated GFR (MDRD) (>60) Glucose (74-106) mg/dL Lactic Acid 1.5 (0.4-2.0) mmol/L Calcium (8.5-10.1) mg/dL Phosphorus (2.5-4.9) mg/dL Magnesium (1.8-2.4) mg/dL Total Bilirubin (0.2-1.0) mg/dL AST (15-37) U/L ALT (12-78) U/L Alkaline Phosphatase (46-116) U/L Total Protein (6.4-8.2) g/dL Albumin (3.4-5.0) g/dL Globulin (2.3-3.5) g/dL Albumin/Globulin Ratio (1.2-2.2) Lipase 42 L (73-393) U/L 07/15/17 07/15/17 07/16/17 Range/Units 17:00 17:00 05:37 WBC 23.9 H (4.5-11.0) K/uL RBC 3.44 (3.30-5.50) M/uL Hgb 9.8 L (12.0-15.0) g/dL Hct 30.3 L (36.0-48.0) % MCV 88 (80-98) fL MCH 29 (27-31) pg MCHC 32 (32-36) % Plt Count 147 L (150-400) K/uL Add Manual Diff Yes Neutrophils % (Manual) 81 H (36-66) % Band Neutrophils % 10 (5-11) % Lymphocytes % (Manual) 4 L (24-44) % Monocytes % (Manual) 5 (2-6) % Eosinophils % (Manual) (2-4) % Anisocytosis Moderate H Ovalocytes Few Puncture Site A-line ABG pH 7.209 L (7.350-7.450) ABG pCO2 42.4 H (35.0-42.0) mmHg ABG pO2 85.6 (75.0-100.0) mmHg ABG HCO3 16.3 L (22.0-26.0) mmol/L ABG Total CO2 15.8 L (21.0-25.0) mmol/L ABG O2 Saturation 94.7 L (95.0-98.0) % ABG O2 Content 13.4 L (15.0-23.0) %vol ABG Base Excess -10.6 mm/L ABG Hemoglobin 10.2 L (12.0-16.0) g/dL ABG Oxyhemoglobin 93.0 % ABG Carboxyhemoglobin 0.7 (0.0-1.6) % ABG Methemoglobin 1.1 % [place] Test A-line O2 Delivery Device Ventilator Oxygen Flow Rate L Sodium 130 L (140-148) mmol/L Potassium 5.6 H (3.6-5.2) mmol/L Chloride 97 L (100-108) mmol/L Carbon Dioxide 17 L (21-32) mmol/L Anion Gap 21.6 H (5.0-14.0) mmol/L BUN 80 H* (7-18) mg/dL Creatinine 5.9 H* (0.6-1.0) mg/dL Est Cr Clr Drug Dosing 8.32 mL/min Estimated GFR (MDRD) 7 L (>60) Glucose 149 H (74-106) mg/dL Lactic Acid (0.4-2.0) mmol/L Calcium 7.1 L (8.5-10.1) mg/dL Phosphorus (2.5-4.9) mg/dL Magnesium (1.8-2.4) mg/dL Total Bilirubin 1.2 H (0.2-1.0) mg/dL AST 1064 H (15-37) U/L ALT 1602 H (12-78) U/L Alkaline Phosphatase 133 H (46-116) U/L Total Protein 5.3 L (6.4-8.2) g/dL Albumin 1.8 L (3.4-5.0) g/dL Globulin 3.5 (2.3-3.5) g/dL Albumin/Globulin Ratio 0.5 L (1.2-2.2) Lipase (73-393) U/L 07/16/17 07/16/17 07/16/17 Range/Units 05:37 05:37 08:12 WBC (4.5-11.0) K/uL RBC (3.30-5.50) M/uL Hgb (12.0-15.0) g/dL Hct (36.0-48.0) % MCV (80-98) fL MCH (27-31) pg MCHC (32-36) % Plt Count (150-400) K/uL Add Manual Diff Neutrophils % (Manual) (36-66) % Band Neutrophils % (5-11) % Lymphocytes % (Manual) (24-44) % Monocytes % (Manual) (2-6) % Eosinophils % (Manual) (2-4) % Anisocytosis Ovalocytes Puncture Site Line ABG pH 7.181 L* (7.350-7.450) ABG pCO2 41.3 (35.0-42.0) mmHg ABG pO2 108.0 H (75.0-100.0) mmHg ABG HCO3 14.9 L (22.0-26.0) mmol/L ABG Total CO2 14.5 L (21.0-25.0) mmol/L ABG O2 Saturation 97.0 (95.0-98.0) % ABG O2 Content 13.4 L (15.0-23.0) %vol ABG Base Excess -12.4 mm/L ABG Hemoglobin 10.0 L (12.0-16.0) g/dL ABG Oxyhemoglobin 94.6 % ABG Carboxyhemoglobin 1.4 (0.0-1.6) % ABG Methemoglobin 1.1 % [place] Test O2 Delivery Device Ventilator Oxygen Flow Rate L Sodium 130 L (140-148) mmol/L Potassium 6.0 H (3.6-5.2) mmol/L Chloride 99 L (100-108) mmol/L Carbon Dioxide 16 L (21-32) mmol/L Anion Gap 21.0 H (5.0-14.0) mmol/L BUN 88 H* (7-18) mg/dL Creatinine 6.3 H* (0.6-1.0) mg/dL Est Cr Clr Drug Dosing 7.79 mL/min Estimated GFR (MDRD) 7 L (>60) Glucose 154 H (74-106) mg/dL Lactic Acid 1.5 (0.4-2.0) mmol/L Calcium 7.0 L (8.5-10.1) mg/dL Phosphorus 9.5 H (2.5-4.9) mg/dL Magnesium 4.4 H (1.8-2.4) mg/dL Total Bilirubin 1.1 H (0.2-1.0) mg/dL AST 796 H (15-37) U/L ALT 1384 H (12-78) U/L Alkaline Phosphatase 139 H (46-116) U/L Total Protein 5.3 L (6.4-8.2) g/dL Albumin 1.8 L (3.4-5.0) g/dL Globulin 3.5 (2.3-3.5) g/dL Albumin/Globulin Ratio 0.5 L (1.2-2.2) Lipase (73-393) U/L Miguel Results Last 24 Hours: Microbiology 07/14/17 12:10 Gram Stain - Final Endotrachial Tube Respiratory Culture - Preliminary NO GROWTH AFTER 1 DAY 07/14/17 22:00 Aerobic Blood Culture - Preliminary Blood NO GROWTH AFTER 1 DAY Anaerobic Blood Culture - Preliminary NO GROWTH AFTER 1 DAY 07/12/17 10:20 Aerobic Blood Culture - Preliminary Blood - Central Line NO GROWTH AFTER 3 DAYS Anaerobic Blood Culture - Preliminary NO GROWTH AFTER 3 DAYS 07/12/17 10:18 Aerobic Blood Culture - Preliminary Blood - A-Line NO GROWTH AFTER 3 DAYS Anaerobic Blood Culture - Preliminary NO GROWTH AFTER 3 DAYS Med Orders - Current: Current Medications Albuterol/Ipratropium (Duoneb 3.0-0.5 Mg/3 Ml) 3 ml INH QIDRT ROB Last Admin: 07/16/17 07:03 Dose: 3 ml Albuterol/Ipratropium (Duoneb 3.0-0.5 Mg/3 Ml) 3 ml INH ASDIRECTED PRN PRN Reason: BREATHING Last Admin: 07/13/17 00:30 Dose: 3 ml Dextrose/Water (Dextrose 50% In Water) 50 ml IVPUSH ONETIME PRN PRN Reason: ACCUCHECK LESS THAN 70 Famotidine (Pepcid) 20 mg IVPUSH DAILY [facility] Last Admin: 07/16/17 08:34 Dose: 20 mg Glucagon (Glucagen) 1 mg IM ONETIME PRN PRN Reason: ACCUCHECK LESS THAN 70 Heparin Sodium (Porcine) (Heparin Lock Flush 100 Units/Ml) 500 units IVPUSH ASDIRECTED PRN PRN Reason: [employer] Hydroxyzine HCl (Vistaril) 75 - 100 mg IM Q4H PRN PRN Reason: pain Propofol (Diprivan 100 Ml) 100 mls @ 4.776 mls/hr IV TITRATE ROB; 5 MCG/KG/MIN PRN Reason: Protocol Last Titration: 07/15/17 18:54 Dose: 0 mcg/kg/min, 0 mls/hr Heparin Sodium (Porcine) 5,000 (units/ Sodium Chloride) 501 mls @ 5 mls/hr IV ASDIRECTED [facility] Last Admin: 07/13/17 17:11 Dose: 5 mls/hr Heparin Sodium (Porcine) 5,000 (units/ Sodium Chloride) 501 mls @ 1 mls/hr IV ASDIRECTED [facility] Last Admin: 07/13/17 17:23 Dose: 1 mls/hr Insulin Human Regular 100 unit (/ Sodium Chloride) 100 mls @ 0.5 mls/hr IV TITRATE ROB; 0.5 UNITS/HR PRN Reason: Protocol Last Titration: 07/16/17 09:15 Dose: 2 units/hr, 2 mls/hr Meropenem 1 gm/ Sodium (Chloride) 50 mls @ 100 mls/hr IV Q12H [facility] Last Admin: 07/16/17 05:30 Dose: 100 mls/hr Sodium Chloride (Normal Saline) 500 mls @ 0 mls/hr IV ASDIRECTED ROB PRN Reason: KVO Last Admin: 07/15/17 15:30 Dose: 15 mls/hr Levofloxacin/Dextrose 500 mg/ (Premix) 100 mls @ 100 mls/hr IV Q48H ROB Norepinephrine Bitartrate 8 mg (/ Dextrose/Water) 250 mls @ 3.75 mls/hr IV TITRATE ROB; 2 MCG/MIN PRN Reason: Protocol Last Titration: 07/16/17 00:20 Dose: 6 mcg/min, 11.25 mls/hr Vancomycin HCl 2 gm/ Sodium (Chloride) 250 mls @ 125 mls/hr IV ONETIME ONE Stop: 07/16/17 11:59 Diltiazem HCl 100 mg/ Sodium (Chloride) 100 mls @ 5 mls/hr IV TITRATE ROB; 5 MG /HR PRN Reason: Protocol Albumin Human (Albumin 25%) 25 gm in 100 mls @ 25 mls/hr IV Q12H ROB Fluconazole/Sodium Chloride (200 mg/ Premix) 100 mls @ 100 mls/hr IV Q24H ROB Fluconazole/Sodium Chloride (100 mg/ Premix) 50 mls @ 100 mls/hr IV Q24H [facility] Ketoconazole (Nizoral 2% Crm) 0 gm TOP BID [facility] Last Admin: 07/15/17 21:44 Dose: Not Given Methylprednisolone Sodium Succinate (Solu-Medrol) 125 mg IVPUSH ONETIME ONE Stop: 07/16/17 09:57 Methylprednisolone Sodium Succinate (Solu-Medrol) 40 mg IVPUSH Q6H [facility] Metoclopramide HCl (Reglan) 10 mg IVPUSH Q6H PRN PRN Reason: NAUSEA NOT CONTROL BY ZOFRAN Naloxone HCl (Narcan) 0.1 mg IV ASDIRECTED PRN PRN Reason: decreased respiratory rate Check Scopolamine (Patch Daily) 1 each TOP DAILY [facility] Last Admin: 07/16/17 09:25 Dose: Not Given Ondansetron HCl (Zofran) 4 mg IVPUSH Q4H PRN PRN Reason: Nausea/Vomiting Last Admin: 07/11/17 09:06 Dose: 4 mg Vancomycin HCl (Vancomycin) 1 gm IV .PHARMACY TO DOSE [facility] Discontinued Medications Acetaminophen (Tylenol Extra Strength) 1,000 mg PO ONETIME ONE Stop: 07/10/17 05:52 Last Admin: 07/10/17 06:22 Dose: 1,000 mg Acetaminophen (Tylenol) 650 mg PO Q6H [facility] Last Admin: 07/12/17 08:06 Dose: Not Given Acetaminophen (Tylenol) 650 mg RECTAL Q4H PRN PRN Reason: Fever Last Admin: 07/14/17 22:21 Dose: 650 mg Albuterol/Ipratropium (Duoneb 3.0-0.5 Mg/3 Ml) 3 ml NEB ONETIME ONE Stop: 07/10/17 06:24 Last Admin: 07/10/17 07:14 Dose: 3 ml Aspirin (Ecotrin) 325 mg PO ONETIME ONE Stop: 07/10/17 07:16 Last Admin: 07/10/17 07:25 Dose: 325 mg Aspirin (Aspirin) 324 mg PO DAILY [facility] Last Admin: 07/11/17 08:27 Dose: 324 mg Baclofen (Lioresal) 10 mg PO TID [facility] Last Admin: 07/11/17 21:07 Dose: 10 mg Bumetanide (Bumex) 2 mg IVPUSH ONETIME ONE Stop: 07/12/17 10:08 Last Admin: 07/12/17 10:26 Dose: 2 mg Bupropion HCl (Wellbutrin Sr) 150 mg PO BID [facility] Last Admin: 07/11/17 21:08 Dose: 150 mg Cefoxitin Sodium (Mefoxin) Confirm Administered Dose 2 gm .ROUTE .STK-MED ONE Stop: 07/10/17 06:43 Last Admin: 07/10/17 08:17 Dose: 2 gm Celecoxib (Celebrex) 200 mg PO ONETIME ONE Stop: 07/10/17 05:52 Last Admin: 07/10/17 06:21 Dose: 200 mg Celecoxib (Celebrex) 200 mg PO DAILY@0800 [facility] Last Admin: 07/12/17 08:06 Dose: Not Given Ropivacaine 60 ml/Dexamethasone 8 mg/Epinephrine HCl 0.4 mg/ Sodium Chloride 17.6 ml 0 ml NERVRT ASDIRECTED [facility] Last Admin: 07/10/17 08:06 Dose: 80 syringe Cyanocobalamin (Vitamin B12) 1,000 mcg IM ONETIME ONE Stop: 07/12/17 09:01 Last Admin: 07/12/17 09:20 Dose: 1,000 mcg Dexamethasone (Dexamethasone) Confirm Administered Dose 4 mg .ROUTE .STK-MED ONE Stop: 07/10/17 07:05 Diltiazem HCl (Diltiazem) 20 mg IVPUSH ONETIME ONE Stop: 07/14/17 19:15 Last Admin: 07/14/17 19:39 Dose: 20 mg Diphenhydramine HCl (Benadryl) 25 - 50 mg IVPUSH Q4H PRN PRN Reason: ITCHING Ephedrine Sulfate (Ephedrine Sulfate) Confirm Administered Dose 50 mg .ROUTE .STK-MED ONE Stop: 07/10/17 07:53 Fentanyl (Sublimaze) Confirm Administered Dose 250 mcg .ROUTE .STK-MED ONE Stop: 07/10/17 07:05 Fluoxetine HCl (Prozac) 60 mg PO DAILY [facility] Last Admin: 07/11/17 08:27 Dose: 60 mg Furosemide (Lasix) 40 mg IVPUSH ONETIME STA Stop: 07/12/17 01:54 Last Admin: 07/12/17 02:06 Dose: 40 mg Furosemide (Lasix) Confirm Administered Dose 40 mg .ROUTE .STK-MED ONE Stop: 07/12/17 01:58 Last Admin: 07/12/17 04:02 Dose: 40 mg Gabapentin (Neurontin) 300 mg PO ONETIME ONE Stop: 07/10/17 05:52 Last Admin: 07/10/17 06:21 Dose: 300 mg Gabapentin (Neurontin) 300 mg PO TID [facility] Last Admin: 07/11/17 08:26 Dose: 300 mg Glycopyrrolate (Robinul) Confirm Administered Dose 1 mg .ROUTE .STK-MED ONE Stop: 07/10/17 07:05 Heparin Sodium (Porcine) (Heparin Sodium) 5,000 units SUBCUT Q12H [facility] Last Admin: 07/16/17 05:30 Dose: 5,000 units Heparin Sodium (Porcine) (Heparin Sodium) Confirm Administered Dose 5,000 units .ROUTE .STK-MED ONE Stop: 07/12/17 02:38 Last Admin: 07/12/17 04:03 Dose: 5,000 units Hydrochlorothiazide (Hydrochlorothiazide) 25 mg PO DAILY [facility] Last Admin: 07/11/17 08:24 Dose: 25 mg Hydromorphone HCl (Dilaudid Calendering Supervisor 15 Mg In Ns 30 Ml) 0 mg IV ASDIRECTED PRN; Protocol PRN 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 Last Admin: 07/12/17 10:01 Dose: 15 mg Hydroxyzine HCl (Vistaril) 100 mg IM ONETIME ONE Stop: 07/10/17 10:40 Last Admin: 07/10/17 10:42 Dose: 100 mg Lidocaine HCl/Dextrose (Lidocaine 2 Gm/D5w 500 Ml) 2 gm in 500 mls @ 30 mls/hr IV .[id number] [facility] PRN Reason: 2 MG/MIN Stop: 07/11/17 10:00 Last Admin: 07/10/17 12:21 Dose: 2 mg/min, 30 mls/hr Ketamine HCl 100 mg/ Sodium (Chloride) 100 mls @ 16.5 mls/hr IV ASDIRECTED [facility] PRN Reason: 5 MCG/KG/MIN Dextrose/Lactated Ringer's (Dextrose 5%-Lactated Ringers) 1,000 mls @ 100 mls/ hr IV ASDIRECTED [facility] Last Admin: 07/10/17 07:00 Dose: 100 mls/hr Cefoxitin Sodium 2 gm/ Sodium (Chloride) 50 mls @ 100 mls/hr IV ONETIME ONE Stop: 07/10/17 07:59 Last Admin: 07/10/17 07:25 Dose: 100 mls/hr Dextrose/Lactated Ringer's (Dextrose 5%-Lactated Ringers) 1,000 mls @ 175 mls/ hr IV ASDIRECTED [facility] Last Admin: 07/11/17 06:25 Dose: 175 mls/hr Multivitamins/Minerals 10 ml/Thiamine HCl 200 mg/ Chromium/Copper/Manganese/ Seleni/Zn 1 ml/ Dextrose/Lactated Ringer's 1,013 mls @ 175 mls/hr IV DAILY@ 1600 [facility] Last Admin: 07/10/17 17:50 Dose: 175 mls/hr Cefoxitin Sodium 2 gm/ Sodium (Chloride) 50 mls @ 100 mls/hr IV Q6H [facility] Stop: 07/11/17 07:59 Last Admin: 07/11/17 08:20 Dose: 100 mls/hr Lactated Ringer's (Ringers, Lactated) 1,000 mls @ 100 mls/hr IV ASDIRECTED [facility] Last Admin: 07/11/17 08:20 Dose: 100 mls/hr Magnesium Sulfate 2 gm/ Premix 50 mls @ 25 mls/hr IV Q6H [facility] Stop: 07/14/17 05:59 Last Admin: 07/14/17 03:25 Dose: 25 mls/hr Multivitamins/Minerals 10 ml/Thiamine HCl 200 mg/ Chromium/Copper/Manganese/ Seleni/Zn 1 ml/ Lactated Ringer's 1,013 mls @ 100 mls/hr IV DAILY@1600 [facility] Last Admin: 07/11/17 17:11 Dose: 100 mls/hr Propofol (Diprivan 100 Ml) Confirm Administered Dose 100 mls @ as directed .ROUTE .STK-MED ONE Stop: 07/12/17 02:49 Last Admin: 07/12/17 05:23 Dose: 100 mg Norepinephrine Bitartrate 4 mg (/ Dextrose/Water) 250 mls @ 7.5 mls/hr IV TITRATE ROB; 2 MCG/MIN PRN Reason: Protocol Last Admin: 07/13/17 05:29 Dose: 20 mcg/min, 75 mls/hr Clindamycin Phosphate 600 mg/ (Sodium Chloride) 54 mls @ 100 mls/hr IV Q8H [facility] Last Admin: 07/13/17 04:02 Dose: 100 mls/hr Meropenem 1 gm/ Sodium (Chloride) 100 mls @ 200 mls/hr IV Q8H [facility] Last Admin: 07/13/17 04:31 Dose: 200 mls/hr Dextrose/Water (Dextrose 5% In Water) Confirm Administered Dose 250 mls @ as directed .ROUTE .ST-MED ONE Stop: 07/12/17 03:50 Last Admin: 07/12/17 04:04 Dose: Not Given Vasopressin 100 units/ (Dextrose/Water) 255 mls @ 4.59 mls/hr IV TITRATE ROB; 0.03 UNITS/MIN PRN Reason: Protocol Last Titration: 07/14/17 03:01 Dose: 0.02 units/min, 3.06 mls/hr Dextrose/Water (Dextrose 5% In Water) Confirm Administered Dose 250 mls @ as directed .ROUTE .STK-MED ONE Stop: 07/12/17 04:30 Last Admin: 07/12/17 05:28 Dose: 250 ml Sodium Chloride (Normal Saline) 1,000 mls @ 999 mls/hr IV .BOLUS ONE Stop: 07/12/17 04:51 Last Admin: 07/12/17 03:51 Dose: 999 mls/hr Sodium Chloride (Normal Saline) 1,000 mls @ 500 mls/hr IV ASDIRECTED ROB Sodium Chloride (Normal Saline) 1,000 mls @ 250 mls/hr IV ASDIRECTED ROB Last Infusion: 07/12/17 08:24 Dose: 0 mls/hr Lactated Ringer's (Ringers, Lactated) 500 mls @ 500 mls/hr IV ONETIME ONE Stop: 07/12/17 16:50 Last Admin: 07/12/17 15:35 Dose: 500 mls/hr Dobutamine HCl/Dextrose (Dobutamine In D5w 250 Mg/250 Ml) 250 mg in 250 mls @ 19.105 mls/hr IV TITRATE ROB; 2 MCG/KG/MIN PRN Reason: Protocol Last Titration: 07/13/17 12:40 Dose: 0 mcg/kg/min, 0 mls/hr Lactated Ringer's (Ringers, Lactated) 1,000 mls @ 500 mls/hr IV ASDIRECTED ROB Stop: 07/13/17 04:15 Linezolid 600 mg/ Premix 300 mls @ 300 mls/hr IV Q12H [facility] Last Admin: 07/15/17 20:46 Dose: 300 mls/hr Norepinephrine Bitartrate 8 mg (/ Dextrose/Water) 500 mls @ 7.5 mls/hr IV TITRATE ROB; 2 MCG/MIN PRN Reason: Protocol Norepinephrine Bitartrate 16 (mg/ Dextrose/Water) 500 mls @ 3.75 mls/hr IV TITRATE ROB; 2 MCG/MIN PRN Reason: Protocol Stop: 07/15/17 11:29 Last Titration: 07/14/17 23:02 Dose: 6 mcg/min, 11.25 mls/hr Meropenem 1 gm/ Sodium (Chloride) 50 mls @ 100 mls/hr IV Q8H [facility] Last Admin: 07/14/17 03:13 Dose: 100 mls/hr Vasopressin 40 units/ Dextrose (/Water) 100 mls @ 4.5 mls/hr IV TITRATE ROB; 0.03 UNITS/MIN PRN Reason: Protocol Last Titration: 07/14/17 18:00 Dose: 0 units/min, 0 mls/hr Diltiazem HCl 100 mg/ Sodium (Chloride) 100 mls @ 5 mls/hr IV TITRATE ROB; 5 MG /HR PRN Reason: Protocol Last Admin: 07/16/17 00:41 Dose: 10 mg/hr, 10 mls/hr Levofloxacin/Dextrose 750 mg/ (Premix) 150 mls @ 100 mls/hr IV ONETIME ONE Stop: 07/14/17 23:30 Last Admin: 07/14/17 22:38 Dose: 100 mls/hr Influenza Virus Vaccine (Fluzone Quad ) 60 mcg IM .ONCE ONE Stop: 07/10/17 06:31 Last Admin: 07/10/17 12:24 Dose: Not Given Influenza Virus Vaccine (Fluzone Quad ) 60 mcg IM .ONCE ONE Stop: 07/12/17 11:31 Last Admin: 07/12/17 16:05 Dose: Not Given Insulin Aspart (Novolog) 5 unit SUBCUT ONETIME ONE Stop: 07/10/17 10:16 Last Admin: 07/10/17 10:12 Dose: 5 units Insulin Aspart (Novolog) 0 unit SUBCUT Q6H PRN; Protocol PRN Reason: PER CORRECTIONAL DOSING Last Admin: 07/12/17 16:03 Dose: 7 units Insulin Aspart (Novolog) 0 unit SUBCUT ONETIME STA Stop: 07/10/17 22:23 Last Admin: 07/10/17 22:43 Dose: 20 units Insulin Aspart (Novolog) 0 unit SUBCUT Q6H ROB PRN Reason: Protocol Last Admin: 07/13/17 03:41 Dose: 15 units Insulin Aspart (Novolog) 14 unit SUBCUT ONETIME ONE Stop: 07/12/17 23:41 Last Admin: 07/12/17 23:51 Dose: 14 units Insulin Aspart (Novolog) 16 unit SUBCUT ONETIME ONE Stop: 07/13/17 06:35 Last Admin: 07/13/17 06:45 Dose: 16 units Insulin Detemir (Levemir) 35 unit SUBCUT BEDTIME ROB Last Admin: 07/11/17 06:22 Dose: Not Given Insulin Detemir (Levemir) 0 unit SUBCUT ONETIME ONE Stop: 07/10/17 22:28 Last Admin: 07/10/17 22:43 Dose: 45 units Iohexol (Omnipaque-300) 50 ml PO .ASDIRECTED STA Stop: 07/11/17 03:45 Last Admin: 07/11/17 03:56 Dose: 50 ml Isosorbide Mononitrate (Imdur) 30 mg PO DAILY [facility] Last Admin: 07/11/17 08:24 Dose: 30 mg Ketamine HCl (Ketalar) 30 mg IV ASDIRECTED [facility] Labetalol HCl (Normodyne) 5 - 15 mg IVPUSH Q1H PRN PRN Reason: SBP over 160 OR DBP over 95 Levothyroxine Sodium (Levothyroxine) 75 mcg PO DAILY@0730 [facility] Last Admin: 07/12/17 08:06 Dose: Not Given Lidocaine HCl (Xylocaine 2%) 145 mg IVPUSH ONETIME ONE Stop: 07/10/17 07:31 Last Admin: 07/10/17 12:23 Dose: Not Given Lisinopril (Prinivil) 40 mg PO DAILY [facility] Last Admin: 07/11/17 08:27 Dose: 40 mg Methylprednisolone Sodium Succinate (Solu-Medrol) 125 mg IVPUSH ONETIME ONE Stop: 07/12/17 03:59 Last Admin: 07/12/17 04:15 Dose: 125 mg Metoprolol Tartrate (Lopressor) 100 mg PO BID [facility] Last Admin: 07/11/17 21:07 Dose: 100 mg Metoprolol Tartrate (Lopressor) 5 mg IV Q6H [facility] Last Admin: 07/12/17 09:14 Dose: 5 mg Miscellaneous Information (Remove Patch) 1 ea TRDERM ONETIME ONE Stop: 07/12/17 10:01 Last Admin: 07/12/17 09:25 Dose: Not Given Neostigmine Methylsulfate (Neostigmine) Confirm Administered Dose 5 mg .ROUTE .STK-MED ONE Stop: 07/10/17 07:05 Nitroglycerin (Nitro-Bid 2%) Confirm Administered Dose 1 gm .ROUTE .STK-MED ONE Stop: 07/12/17 10:00 Last Admin: 07/12/17 10:15 Dose: 1 gm Nitroglycerin (Nitro-Bid 2%) 1 gm TOP ONETIME ONE Stop: 07/12/17 10:00 Last Admin: 07/13/17 09:03 Dose: 1 gm Ondansetron HCl (Zofran) Confirm Administered Dose 4 mg .ROUTE .STK-MED ONE Stop: 07/10/17 07:05 Pantoprazole Sodium (Protonix Iv) 40 mg IVPUSH Q24H [facility] Last Admin: 07/11/17 13:55 Dose: 40 mg Pantoprazole Sodium (Protonix Iv) 40 mg IV Q24H [facility] Last Admin: 07/14/17 11:35 Dose: 40 mg Phenylephrine HCl (Ran-Synephrine) Confirm Administered Dose 10 mg .ROUTE .STK- MED ONE Stop: 07/10/17 08:52 Propofol (Diprivan 20 Ml) Confirm Administered Dose 200 mg .ROUTE .STK-MED ONE Stop: 07/10/17 07:05 Propofol (Diprivan 20 Ml) 100 mg IVPUSH ONETIME ONE Stop: 07/12/17 02:31 Last Admin: 07/12/17 04:24 Dose: Not Given Propofol (Diprivan 20 Ml) 100 mg IVPUSH ONETIME ONE Stop: 07/12/17 02:41 Last Admin: 07/12/17 04:25 Dose: Not Given Rocuronium [place] (Zemuron) Confirm Administered Dose 50 mg .ROUTE .STK-MED ONE Stop: 07/10/17 07:05 Rocuronium [place] (Zemuron) Confirm Administered Dose 50 mg .ROUTE .STK-MED ONE Stop: 07/10/17 08:57 Rocuronium [place] (Zemuron) 15 mg IV ONETIME ONE Stop: 07/12/17 02:31 Last Admin: 07/12/17 04:24 Dose: Not Given Scopolamine (Transderm-Scop) 1.5 mg TRDERM ONETIME ONE Stop: 07/10/17 06:01 Last Admin: 07/10/17 06:22 Dose: 1.5 mg Sodium Polystyrene Sulfonate (Kayexalate) 45 gm RECTAL NOW ONE Stop: 07/12/17 23:41 Last Admin: 07/13/17 00:15 Dose: 45 gm Sodium Polystyrene Sulfonate (Kayexalate) 30 gm RECTAL NOW ONE Stop: 07/13/17 06:34 Last Admin: 07/13/17 06:57 Dose: 30 gm Sodium Polystyrene Sulfonate (Kayexalate) 45 gm RECTAL NOW ONE Stop: 07/16/17 06:27 Last Admin: 07/16/17 07:50 Dose: 45 gm Succinylcholine Chloride (Quelicin) Confirm Administered Dose 200 mg .ROUTE .STK -MED ONE Stop: 07/10/17 07:05 Vasopressin (Vasopressin) Confirm Administered Dose 100 units .ROUTE .STK-MED ONE Stop: 07/12/17 04:29 Last Admin: 07/12/17 04:48 Dose: 100 units - Exam Quality Assessment: Supplemental Oxygen (Ventilator), Urine Catheter, DVT Prophylaxis General: Sedated, Lethargic Lungs: Decreased Breath Sounds, Rhonchi, Wheezing. No: Crackles, Rales Cardiovascular: Regular Rate, Irregular Rhythm, Tachycardia. No: Murmurs GI/Abdominal Exam: Soft, Non-Tender, No Organomegaly, No Distention Extremities: Non-Tender, Pedal Edema Skin: Warm, Dry Consult PN Assessment/Plan Procedures: Procedures BLOOD TYPING SEROLOGIC ABO (02/04/16) BLOOD TYPING SEROLOGIC RH(D) (02/04/16) COMPLETE CBC W/AUTO DIFF WBC (12/09/15) COMPREHEN METABOLIC PANEL (12/09/15) EMERGENCY DEPT VISIT (12/09/15) POLYSOM 6/> YRS 4/> BEBE (05/23/16) POLYSOM 6/>YRS CPAP 4/> PARM (11/29/16) RBC ANTIBODY SCREEN (02/04/16) ROUTINE VENIPUNCTURE (12/09/15) URINALYSIS AUTO W/SCOPE (12/09/15) Problem List Initiated/Reviewed/Updated: Yes My Orders Last 24 Hours: My Active Orders 07/15/17 11:00 Famotidine [Pepcid] 20 mg IVPUSH DAILY 07/15/17 11:30 Norepinephrine [Levophed] 8 mg Dextrose 5% in Water 242 ml IV TITRATE 07/16/17 05:00 CXR [Chest 1V Frontal] [CR] DAILY 07/16/17 09:00 Vancomycin 1 gm IV .PHARMACY TO DOSE 07/16/17 09:56 methylPREDNISolone Sod Succ [Solu-MEDROL] 125 mg IVPUSH ONETIME ONE 07/16/17 10:00 Albumin Human [Albumin 25%] 25 gm in 100 ml IV Q12H Fluconazole/Normal Saline [Diflucan in NS 200 MG/100 ML] 200 mg Premix Bag 1 bag IV Q24H Vancomycin 2 gm Sodium Chloride 0.9% [Normal Saline] 250 ml IV ONETIME methylPREDNISolone Sod Succ [Solu-MEDROL] 40 mg IVPUSH Q6H 07/16/17 11:00 Diltiazem 100 mg Sodium Chloride 0.9% [Normal Saline] 80 ml IV TITRATE 07/16/17 17:00 BASIC METABOLIC PANEL,BMP [CHEM] Stat BLOOD GAS ARTERIAL [BG] Stat 07/16/17 22:00 Levofloxacin/Dextrose 5%-Water [Levaquin in D5W 500 MG/100 ML] 500 mg Premix Bag 1 bag IV Q48H 07/17/17 05:00 CXR [Chest 1V Frontal] [CR] DAILY BLOOD GAS ARTERIAL [BG] Timed CBC WITH AUTO DIFF [HEME] Timed COMPREHENSIVE METABOLIC PN,CMP [CHEM] Timed LACTIC ACID [CHEM] Timed MAGNESIUM [CHEM] Timed PHOSPHORUS [CHEM] Timed 07/17/17 08:00 Fluconazole/Normal Saline [Diflucan in NS 200 MG/100 ML] 100 mg Premix Bag 1 bag IV Q24H 07/18/17 05:00 CXR [Chest 1V Frontal] [CR] DAILY Plan: ASSESSMENT AND RECOMMENDATIONS ACUTE HYPOXIC AND HYPERCAPNIC RESPIRATORY FAILURE-bilateral pulmonary infiltrates consistent with probable pneumonia and ARDS. Oxygenation has been stable over the past 24 hours to modestly improved. On exam today does have bilateral expiratory wheezing, as well as some rhonchi. -Solu-Medrol 125 mg IV now -Solu-Medrol 40 mg IV every 6 hours -Fluconazole 200 mg IV now then 100 mg IV every 24 hours -IV meropenem and Zyvox, levofloxacin -Intubation and mechanical ventilation, continue to work on decreasing FiO2 -Minimize IV fluids -Blood and sputum cultures negative thus far -DVT prophylaxis -IV Pepcid for stress ulcer prophylaxis ACUTE LIVER INJURY-likely ischemic in nature related to use of IV pressors, medications have been reviewed. Transaminase levels have improved over the past 24 hours -Discontinue Protonix and acetaminophen -Consider CT scan of the abdomen, at the present time tentative respiratory status does not allow significant movement as oxygen saturations drop precipitously -Recheck liver enzymes tomorrow SEPTIC SHOCK- continues to require moderate dose of norepinephrine, otherwise has been hemodynamically stable. White blood cell count elevated and she has had low-grade temperature elevations last 2 evenings. Blood cultures obtained 2 nights ago remain negative thus far as well as repeat sputum cultures. -IV norepinephrine to maintain mean arterial pressure greater than 65 -Minimize fluids secondary to underlying ARDS -Blood and sputum cultures pending -IV vancomycin, meropenem, levofloxacin, and fluconazole as above -Follow-up blood and sputum cultures pending ATRIAL FIBRILLATION WITH RAPID VENTRICULAR RESPONSE-rate with relatively well- controlled with use of IV diltiazem -Continue rate control with diltiazem -Initiate anticoagulation with IV heparin METABOLIC ACIDOSIS-lactic acid level remains normal, likely related to acute kidney injury. Complicated by poor to nonexistent respiratory compensation STATUS POST GASTRIC BYPASS SURGERY -Postoperative care per Dr. Sunshine CHRONIC KIDNEY DISEASE STAGE III-acute on chronic kidney injury secondary to hypotension and hemodynamic compromise. Renal function worsened over the past 24 hours with increasing creatinine to 6.3. Urine output has improved over the past 24 hours and hopefully we'll see improvement in creatinine over the next day or 2 -Albumin 25 g IV every 12 hours -Closely monitor urine output and renal function TYPE 2 DIABETES MELLITUS-glucose levels improved with continuous infusion of insulin -Level III continuous infusion of insulin -Monitor regular glucose levels per protocol One hour of critical care time was spent in the direct care and management of the patient in the intensive care unit this morning
[2017-07-16] MEDS: Ketoconazole 2% Crm 30 GM Tube TOP SCH (10:32)
[2017-07-16] MEDS: Norepinephrine 8 MG in Dextrose 5% in Water 242 ML IV SCH ×2 (10:35)
[2017-07-16] MEDS: Heparin Sodium 5,000 Units/ML Vial IVPUSH ONE (10:50)
[2017-07-16] MEDS ORDERED: Heparin Sodium/D5W 25,000 UNITS/500 ML BAG IV SCH (11:00)
[2017-07-16] MEDS ORDERED: methylPREDNISolone Sodium Succinate 125 MG/2 ML SDV IVPUSH ONE (11:00)
[2017-07-16] MEDS ORDERED: Lactated Ringers 1,000 ML IV ONE (11:45)
[2017-07-16] MEDS ORDERED: Fluconazole/Normal Saline 200 MG in Premix Bag 1 BAG IV SCH (12:00)
--- NOTE | 2017-07-16 13:32 | PCM.DCSUM1 ---
Discharge Summary - Hospital Course Brief History: Ms. Gaston is a 57-year-old woman who was admitted on July 10 for gastric bypass surgery, for management of morbid obesity. - Discharge Data Discharge Date: 07/16/17 Discharge Disposition: DC/Tfer to Acute Hospital 02 Condition: Serious - Discharge Diagnosis/Problem(s) (1) S/P gastric bypass SNOMED Code(s): 903898962, 347963811, 632062467 ICD Code: Z98.84 - BARIATRIC SURGERY STATUS Status: Acute Current Visit: Yes (2) Sepsis SNOMED Code(s): 38382100 ICD Code: A41.9 - SEPSIS, UNSPECIFIED ORGANISM Status: Acute Current Visit: Yes (3) ARDS (adult respiratory distress syndrome) SNOMED Code(s): 07400842 ICD Code: J80 - ACUTE RESPIRATORY DISTRESS SYNDROME Status: Acute Current Visit: Yes (4) Acute kidney injury superimposed on chronic kidney disease SNOMED Code(s): 25221491 ICD Code: N17.9 - ACUTE KIDNEY FAILURE, UNSPECIFIED; N18.9 - CHRONIC KIDNEY DISEASE, UNSPECIFIED Status: Acute Current Visit: Yes (5) Metabolic acidosis SNOMED Code(s): 91396136 ICD Code: E87.2 - ACIDOSIS Status: Acute Current Visit: Yes (6) Pneumonia SNOMED Code(s): 085069253 ICD Code: J18.9 - PNEUMONIA, UNSPECIFIED ORGANISM Status: Acute Current Visit: Yes (7) Transaminitis SNOMED Code(s): 522480513 ICD Code: R74.0 - NONSPEC ELEV OF LEVELS OF TRANSAMNS & LACTIC ACID DEHYDRGNSE Status: Acute Current Visit: Yes (8) Atrial fibrillation SNOMED Code(s): 45090466 ICD Code: I48.91 - UNSPECIFIED ATRIAL FIBRILLATION Status: Acute Current Visit: Yes - Patient Summary/Data Consults: Consultations 07/10/17 11:28 Consult to Bariatric Services [CONS] Routine Comment: Consult to Hot Water Heater Installer [CONS] Routine Comment: Physician Instructions: Quantity: Consult to Pharmacy [CONS] Routine Comment: Physician Instructions: Quantity: Respiratory Care Assess and Treatment [CONS] Routine Comment: Physician Instructions: Post-Op Pneumonia Prevention 07/11/17 07:36 Consult to Physical Therapy [PT Evaluation and Treatment] [CONS] Routine Please Evaluate and Treat. PT Reason for Consult: Ambulation Pending Discharge: or Monday Special Instructions: strength and conditioning post RNY Gastric Bypass Surgery This query below is only for informational purposes and is not editable. Admission Diagnosis/Problem: Sony-en-Y gastrojejunostomy 07/12/17 02:07 Consult to Physician [CONS] Stat Consulting Provider: Rizwan Steele Call Completed to Consulting Physician: Yes Hospital Course: Ms. Gaston is a 57-year-old woman who was admitted on July 10 and underwent gastric bypass surgery performed by Dr. Sunshine, for management of morbid obesity. She did well during the initial postoperative period, but on the evening of the second postoperative day developed abrupt onset of hypoxic and hypercapnic respiratory failure. Chest x-ray showed bilateral pulmonary infiltrates and arterial blood gases showed significant hypoxia and hypercapnia. She was transferred to the intensive care unit and intubated, started on mechanical ventilation. She was also found to be hemodynamically unstable with hypotension and was felt to have probable sepsis. She was given initial fluid boluses and when this did not result in an adequate mean arterial pressure she was started on norepinephrine continuous infusion. Despite progression and increase in the norepinephrine she continued to have hypotension and was started on IV vasopressin continuous infusion. She required a high level of ventilatory support with 100% FiO2. During this period of time also developed acute on chronic renal insufficiency with increased creatinine and decrease in urine output. After the initial 36 hours of intensive care began to improve with better oxygenation and her FiO2 was weaned to 70%. She was weaned off of the IV vasopressin and the dose of norepinephrine was decreased significantly. With the initial respiratory compromise and evidence of pneumonia she was started on broad-spectrum IV antibiotic therapy with Zyvox and meropenem. Blood cultures and sputum cultures were obtained initially and remained negative throughout the hospital stay. It was suspected that she did have a component of ARDS causing respiratory compromise, and her limited as much as possible. Following this she seemed to be slowly improving, but then approximately 36 hours prior to transfer began to show evidence of new infection with increase in white blood cell count and low-grade temperature elevation. Blood and sputum cultures were repeated and again remained negative up until the time of transfer. Antibiotic coverage was changed to vancomycin, meropenem, levofloxacin, and fluconazole. No obvious source of infection was identified on evaluation. Venous period of time she also developed transaminitis with significant increase in ALT and AST levels, these had improved over the past 24 hours but were still significantly elevated. She had progressive renal insufficiency despite improved blood pressures and at the time of transfer creatinine was elevated at 6.3. Associated with this was a metabolic acidosis complicated by an ongoing respiratory acidosis. On the morning of transfer her pH was 7.181 with a bicarbonate of 15. During the 24 hours prior to transfer urine output seemed to be improving and total urine output during that period time was 800 mL. During the few hours prior to transfer her urine output had dropped off and was fairly minimal. She also had developed atrial fibrillation with rapid ventricular response approximately 36 hours prior to transfer, this was managed with continuous infusion of diltiazem. Because of progressive renal failure it was felt best at this point the patient be transferred to a tertiary care facility for some subspecialty management, including dialysis. I reviewed her current situation and findings with Dr. Carmen Huang from [facility] who is agreed to accept the patient in transfer. She will be transferred via helicopter for further subspecialty management and evaluation. Dr. Huang asked that we be willing to accept the patient back in transfer if patient stabilizes in is appropriate for her facility and I agreed that we would be willing to comply with that request if needed. - Patient Instructions Diet: NPO Activity: As Tolerated Other/Special Instructions: Patient will be transferred to [facility] in [facility] via helicopter. - Discharge Plan Home Medications: Home Meds Baclofen [Lioresal] 10 mg PO TID 12/09/15 [History] Hydrochlorothiazide 25 mg PO DAILY 12/09/15 [History] Isosorbide Mononitrate [Imdur] 30 mg PO DAILY 12/09/15 [History] Levothyroxine Sodium [Synthroid] 75 mcg PO DAILY 12/09/15 [History] Lisinopril 40 mg PO DAILY 12/09/15 [History] Metoprolol Tartrate [Lopressor] 100 mg PO BID 12/09/15 [History] Omeprazole Magnesium [Prilosec Otc] 40 mg PO DAILY 12/09/15 [History] buPROPion HCl [buPROPion SR] 150 mg PO Q12H 12/09/15 [History] Aspirin [Halfprin] 81 mg PO DAILY 07/07/17 [History] Cyanocobalamin (Vitamin B-12) [Vitamin B-12] 1,000 mcg PO DAILY 07/07/17 [ History] FLUoxetine HCl [Prozac] 60 mg PO DAILY 07/07/17 [History] Meloxicam [Mobic] 7.5 mg PO DAILY 07/07/17 [History] Multivitamins [Childrens Chewable Vitamin] 1 tab PO BID 07/07/17 [History] Zaleplon [Sonata] 10 mg PO BEDTIME 07/07/17 [History] atorvaSTATin [Lipitor] 40 mg PO BEDTIME 07/07/17 [History] Albuterol/Ipratropium [DuoNeb 3.0-0.5 MG/3 ML] 3 ml INH ASDIRECTED PRN neb 03/25 [Rx] Albuterol/Ipratropium [DuoNeb 3.0-0.5 MG/3 ML] 3 ml INH QIDRT neb 07/16/17 [Rx] Diltiazem 100 mg IV TITRATE sdv 07/16/17 [Rx] Famotidine [Pepcid] 20 mg IVPUSH DAILY sdv 07/16/17 [Rx] Fluconazole/Normal Saline [Diflucan in NS 200 MG/100 ML] 100 mg IV Q24H bag 03/25 [Rx] Heparin Sodium 5,000 units IV ASDIRECTED vial 07/16/17 [Rx] Heparin Sodium 5,000 units IV ASDIRECTED vial 07/16/17 [Rx] Insulin Regular, Human [NovoLIN R] 100 unit IV TITRATE vial 07/16/17 [Rx] Levofloxacin/Dextrose 5%-Water [Levaquin in D5W 500 MG/100 ML] 500 mg IV Q48H bag 07/16/17 [Rx] Meropenem [Merrem] 1 gm IV Q12H sdv 07/16/17 [Rx] Norepinephrine [Levophed] 8 mg IV TITRATE sdv 07/16/17 [Rx] Vancomycin 1 gm IV .PHARMACY TO DOSE sdv 07/16/17 [Rx] methylPREDNISolone Sod Succ [Solu-MEDROL] 40 mg IVPUSH Q6H sdv 07/16/17 [Rx] - Patient Data Vitals - Most Recent: Last Vital Signs Temp 208.2 F H 07/16/17 12:00 Pulse 90 07/16/17 10:52 Resp 24 H 07/16/17 12:45 BP 119/36 L 07/16/17 12:45 Pulse Ox 94 L 07/16/17 12:45 Weight - Most Recent: 424 lb I&O - Last 24 hours: Intake & Output 07/15/17 07/16/17 07/16/17 21:59 06:59 14:59 Intake Total Output Total 65 Balance -65 Lab Results - Last 24 hrs: Laboratory Results - last 24 hr 07/15/17 07/15/17 07/15/17 Range/Units 17:00 17:00 17:00 WBC 21.1 H (4.5-11.0) K/uL RBC 3.42 (3.30-5.50) M/uL Hgb 9.9 L (12.0-15.0) g/dL Hct 29.7 L (36.0-48.0) % MCV 87 (80-98) fL MCH 29 (27-31) pg MCHC 33 (32-36) % Plt Count 144 L (150-400) K/uL Add Manual Diff Yes Neutrophils % (Manual) 84 H (36-66) % Band Neutrophils % 7 (5-11) % Lymphocytes % (Manual) 5 L (24-44) % Monocytes % (Manual) 3 (2-6) % Eosinophils % (Manual) 1 L (2-4) % Anisocytosis Ovalocytes Puncture Site A-line ABG pH 7.209 L (7.350-7.450) ABG pCO2 42.4 H (35.0-42.0) mmHg ABG pO2 85.6 (75.0-100.0) mmHg ABG HCO3 16.3 L (22.0-26.0) mmol/L ABG Total CO2 15.8 L (21.0-25.0) mmol/L ABG O2 Saturation 94.7 L (95.0-98.0) % ABG O2 Content 13.4 L (15.0-23.0) %vol ABG Base Excess -10.6 mm/L ABG Hemoglobin 10.2 L (12.0-16.0) g/dL ABG Oxyhemoglobin 93.0 % ABG Carboxyhemoglobin 0.7 (0.0-1.6) % ABG Methemoglobin 1.1 % Gustabo Test A-line O2 Delivery Device Ventilator Oxygen Flow Rate L Sodium 130 L (140-148) mmol/L Potassium 5.6 H (3.6-5.2) mmol/L Chloride 97 L (100-108) mmol/L Carbon Dioxide 17 L (21-32) mmol/L Anion Gap 21.6 H (5.0-14.0) mmol/L BUN 80 H* (7-18) mg/dL Creatinine 5.9 H* (0.6-1.0) mg/dL Est Cr Clr Drug Dosing 8.32 mL/min Estimated GFR (MDRD) 7 L (>60) Glucose 149 H (74-106) mg/dL Lactic Acid (0.4-2.0) mmol/L Calcium 7.1 L (8.5-10.1) mg/dL Phosphorus (2.5-4.9) mg/dL Magnesium (1.8-2.4) mg/dL Total Bilirubin 1.2 H (0.2-1.0) mg/dL AST 1064 H (15-37) U/L ALT 1602 H (12-78) U/L Alkaline Phosphatase 133 H (46-116) U/L Total Protein 5.3 L (6.4-8.2) g/dL Albumin 1.8 L (3.4-5.0) g/dL Globulin 3.5 (2.3-3.5) g/dL Albumin/Globulin Ratio 0.5 L (1.2-2.2) 07/16/17 07/16/17 07/16/17 Range/Units 05:37 05:37 05:37 WBC 23.9 H (4.5-11.0) K/uL RBC 3.44 (3.30-5.50) M/uL Hgb 9.8 L (12.0-15.0) g/dL Hct 30.3 L (36.0-48.0) % MCV 88 (80-98) fL MCH 29 (27-31) pg MCHC 32 (32-36) % Plt Count 147 L (150-400) K/uL Add Manual Diff Yes Neutrophils % (Manual) 81 H (36-66) % Band Neutrophils % 10 (5-11) % Lymphocytes % (Manual) 4 L (24-44) % Monocytes % (Manual) 5 (2-6) % Eosinophils % (Manual) (2-4) % Anisocytosis Moderate H Ovalocytes Few Puncture Site Line ABG pH 7.181 L* (7.350-7.450) ABG pCO2 41.3 (35.0-42.0) mmHg ABG pO2 108.0 H (75.0-100.0) mmHg ABG HCO3 14.9 L (22.0-26.0) mmol/L ABG Total CO2 14.5 L (21.0-25.0) mmol/L ABG O2 Saturation 97.0 (95.0-98.0) % ABG O2 Content 13.4 L (15.0-23.0) %vol ABG Base Excess -12.4 mm/L ABG Hemoglobin 10.0 L (12.0-16.0) g/dL ABG Oxyhemoglobin 94.6 % ABG Carboxyhemoglobin 1.4 (0.0-1.6) % ABG Methemoglobin 1.1 % Gustabo Test O2 Delivery Device Ventilator Oxygen Flow Rate L Sodium 130 L (140-148) mmol/L Potassium 6.0 H (3.6-5.2) mmol/L Chloride 99 L (100-108) mmol/L Carbon Dioxide 16 L (21-32) mmol/L Anion Gap 21.0 H (5.0-14.0) mmol/L BUN 88 H* (7-18) mg/dL Creatinine 6.3 H* (0.6-1.0) mg/dL Est Cr Clr Drug Dosing 7.79 mL/min Estimated GFR (MDRD) 7 L (>60) Glucose 154 H (74-106) mg/dL Lactic Acid (0.4-2.0) mmol/L Calcium 7.0 L (8.5-10.1) mg/dL Phosphorus 9.5 H (2.5-4.9) mg/dL Magnesium 4.4 H (1.8-2.4) mg/dL Total Bilirubin 1.1 H (0.2-1.0) mg/dL AST 796 H (15-37) U/L ALT 1384 H (12-78) U/L Alkaline Phosphatase 139 H (46-116) U/L Total Protein 5.3 L (6.4-8.2) g/dL Albumin 1.8 L (3.4-5.0) g/dL Globulin 3.5 (2.3-3.5) g/dL Albumin/Globulin Ratio 0.5 L (1.2-2.2) 07/16/17 Range/Units 08:12 WBC (4.5-11.0) K/uL RBC (3.30-5.50) M/uL Hgb (12.0-15.0) g/dL Hct (36.0-48.0) % MCV (80-98) fL MCH (27-31) pg MCHC (32-36) % Plt Count (150-400) K/uL Add Manual Diff Neutrophils % (Manual) (36-66) % Band Neutrophils % (5-11) % Lymphocytes % (Manual) (24-44) % Monocytes % (Manual) (2-6) % Eosinophils % (Manual) (2-4) % Anisocytosis Ovalocytes Puncture Site ABG pH (7.350-7.450) ABG pCO2 (35.0-42.0) mmHg ABG pO2 (75.0-100.0) mmHg ABG HCO3 (22.0-26.0) mmol/L ABG Total CO2 (21.0-25.0) mmol/L ABG O2 Saturation (95.0-98.0) % ABG O2 Content (15.0-23.0) %vol ABG Base Excess mm/L ABG Hemoglobin (12.0-16.0) g/dL ABG Oxyhemoglobin % ABG Carboxyhemoglobin (0.0-1.6) % ABG Methemoglobin % Gustabo Test O2 Delivery Device Oxygen Flow Rate L Sodium (140-148) mmol/L Potassium (3.6-5.2) mmol/L Chloride (100-108) mmol/L Carbon Dioxide (21-32) mmol/L Anion Gap (5.0-14.0) mmol/L BUN (7-18) mg/dL Creatinine (0.6-1.0) mg/dL Est Cr Clr Drug Dosing mL/min Estimated GFR (MDRD) (>60) Glucose (74-106) mg/dL Lactic Acid 1.5 (0.4-2.0) mmol/L Calcium (8.5-10.1) mg/dL Phosphorus (2.5-4.9) mg/dL Magnesium (1.8-2.4) mg/dL Total Bilirubin (0.2-1.0) mg/dL AST (15-37) U/L ALT (12-78) U/L Alkaline Phosphatase (46-116) U/L Total Protein (6.4-8.2) g/dL Albumin (3.4-5.0) g/dL Globulin (2.3-3.5) g/dL Albumin/Globulin Ratio (1.2-2.2) ASHLEY Results - Last 24 hrs: Microbiology 07/12/17 10:20 Aerobic Blood Culture - Preliminary Blood - Central Line NO GROWTH AFTER 4 DAYS Anaerobic Blood Culture - Preliminary NO GROWTH AFTER 4 DAYS 07/12/17 10:18 Aerobic Blood Culture - Preliminary Blood - A-Line NO GROWTH AFTER 4 DAYS Anaerobic Blood Culture - Preliminary NO GROWTH AFTER 4 DAYS 07/14/17 12:10 Gram Stain - Final Endotrachial Tube Respiratory Culture - Preliminary NO GROWTH AFTER 1 DAY 07/14/17 22:00 Aerobic Blood Culture - Preliminary Blood NO GROWTH AFTER 1 DAY Anaerobic Blood Culture - Preliminary NO GROWTH AFTER 1 DAY Med Orders - Current: Current Medications Albuterol/Ipratropium (Duoneb 3.0-0.5 Mg/3 Ml) 3 ml INH QIDRT [facility] Last Admin: 07/16/17 10:39 Dose: 3 ml Albuterol/Ipratropium (Duoneb 3.0-0.5 Mg/3 Ml) 3 ml INH ASDIRECTED PRN PRN Reason: BREATHING Last Admin: 07/13/17 00:30 Dose: 3 ml Dextrose/Water (Dextrose 50% In Water) 50 ml IVPUSH ONETIME PRN PRN Reason: ACCUCHECK LESS THAN 70 Last Admin: 07/16/17 11:58 Dose: 50 ml Famotidine (Pepcid) 20 mg IVPUSH DAILY [facility] Last Admin: 07/16/17 08:34 Dose: 20 mg Glucagon (Glucagen) 1 mg IM ONETIME PRN PRN Reason: ACCUCHECK LESS THAN 70 Heparin Sodium (Porcine) (Heparin Lock Flush 100 Units/Ml) 500 units IVPUSH ASDIRECTED PRN PRN Reason: CARGO MATE Hydroxyzine HCl (Vistaril) 75 - 100 mg IM Q4H PRN PRN Reason: pain Propofol (Diprivan 100 Ml) 100 mls @ 4.776 mls/hr IV TITRATE ROB; 5 MCG/KG/MIN PRN Reason: Protocol Last Titration: 07/15/17 18:54 Dose: 0 mcg/kg/min, 0 mls/hr Heparin Sodium (Porcine) 5,000 (units/ Sodium Chloride) 501 mls @ 5 mls/hr IV ASDIRECTED ROB Last Admin: 07/13/17 17:11 Dose: 5 mls/hr Heparin Sodium (Porcine) 5,000 (units/ Sodium Chloride) 501 mls @ 1 mls/hr IV ASDIRECTED ROB Last Admin: 07/13/17 17:23 Dose: 1 mls/hr Insulin Human Regular 100 unit (/ Sodium Chloride) 100 mls @ 0.5 mls/hr IV TITRATE ROB; 0.5 UNITS/HR PRN Reason: Protocol Last Titration: 07/16/17 10:00 Dose: 0 units/hr, 0 mls/hr Meropenem 1 gm/ Sodium (Chloride) 50 mls @ 100 mls/hr IV Q12H ROB Last Admin: 07/16/17 05:30 Dose: 100 mls/hr Sodium Chloride (Normal Saline) 500 mls @ 0 mls/hr IV ASDIRECTED ROB PRN Reason: KVO Last Admin: 07/15/17 15:30 Dose: 15 mls/hr Levofloxacin/Dextrose 500 mg/ (Premix) 100 mls @ 100 mls/hr IV Q48H ROB Norepinephrine Bitartrate 8 mg (/ Dextrose/Water) 250 mls @ 3.75 mls/hr IV TITRATE ROB; 2 MCG/MIN PRN Reason: Protocol Last Titration: 07/16/17 12:54 Dose: 12 mcg/min, 22.5 mls/hr Diltiazem HCl 100 mg/ Sodium (Chloride) 100 mls @ 5 mls/hr IV TITRATE ROB; 5 MG /HR PRN Reason: Protocol Last Titration: 07/16/17 10:55 Dose: 5 mg/hr, 5 mls/hr Albumin Human (Albumin 25%) 25 gm in 100 mls @ 25 mls/hr IV Q12H ROB Fluconazole/Sodium Chloride (200 mg/ Premix) 100 mls @ 100 mls/hr IV Q24H ROB Last Admin: 07/16/17 12:58 Dose: 100 mls/hr Fluconazole/Sodium Chloride (100 mg/ Premix) 50 mls @ 100 mls/hr IV Q24H [facility] Heparin Sodium/Dextrose (Heparin 25,000 Units In D5w 500 Ml) 25,000 units in 500 mls @ 20 mls/hr IV TITRATE ROB PRN Reason: Protocol Last Admin: 07/16/17 10:46 Dose: 20 mls/hr, 20 mls/hr Lactated Ringer's (Ringers, Lactated) 1,000 mls @ 500 mls/hr IV ONETIME ONE Stop: 07/16/17 13:44 Last Admin: 07/16/17 11:59 Dose: 500 mls/hr Ketoconazole (Nizoral 2% Crm) 0 gm TOP BID [facility] Last Admin: 07/16/17 10:32 Dose: Not Given Methylprednisolone Sodium Succinate (Solu-Medrol) 40 mg IVPUSH Q6H [facility] Metoclopramide HCl (Reglan) 10 mg IVPUSH Q6H PRN PRN Reason: NAUSEA NOT CONTROL BY ZOFRAN Ondansetron HCl (Zofran) 4 mg IVPUSH Q4H PRN PRN Reason: Nausea/Vomiting Last Admin: 07/11/17 09:06 Dose: 4 mg Vancomycin HCl (Vancomycin) 1 gm IV .PHARMACY TO DOSE [facility] Discontinued Medications Acetaminophen (Tylenol Extra Strength) 1,000 mg PO ONETIME ONE Stop: 07/10/17 05:52 Last Admin: 07/10/17 06:22 Dose: 1,000 mg Acetaminophen (Tylenol) 650 mg PO Q6H [facility] Last Admin: 07/12/17 08:06 Dose: Not Given Acetaminophen (Tylenol) 650 mg RECTAL Q4H PRN PRN Reason: Fever Last Admin: 07/14/17 22:21 Dose: 650 mg Albuterol/Ipratropium (Duoneb 3.0-0.5 Mg/3 Ml) 3 ml NEB ONETIME ONE Stop: 07/10/17 06:24 Last Admin: 07/10/17 07:14 Dose: 3 ml Aspirin (Ecotrin) 325 mg PO ONETIME ONE Stop: 07/10/17 07:16 Last Admin: 07/10/17 07:25 Dose: 325 mg Aspirin (Aspirin) 324 mg PO DAILY [facility] Last Admin: 07/11/17 08:27 Dose: 324 mg Baclofen (Lioresal) 10 mg PO TID [facility] Last Admin: 07/11/17 21:07 Dose: 10 mg Bumetanide (Bumex) 2 mg IVPUSH ONETIME ONE Stop: 07/12/17 10:08 Last Admin: 07/12/17 10:26 Dose: 2 mg Bupropion HCl (Wellbutrin Sr) 150 mg PO BID [facility] Last Admin: 07/11/17 21:08 Dose: 150 mg Cefoxitin Sodium (Mefoxin) Confirm Administered Dose 2 gm .ROUTE .STK-MED ONE Stop: 07/10/17 06:43 Last Admin: 07/10/17 08:17 Dose: 2 gm Celecoxib (Celebrex) 200 mg PO ONETIME ONE Stop: 07/10/17 05:52 Last Admin: 07/10/17 06:21 Dose: 200 mg Celecoxib (Celebrex) 200 mg PO DAILY@0800 [facility] Last Admin: 07/12/17 08:06 Dose: Not Given Ropivacaine 60 ml/Dexamethasone 8 mg/Epinephrine HCl 0.4 mg/ Sodium Chloride 17.6 ml 0 ml NERVRT ASDIRECTED [facility] Last Admin: 07/10/17 08:06 Dose: 80 syringe Cyanocobalamin (Vitamin B12) 1,000 mcg IM ONETIME ONE Stop: 07/12/17 09:01 Last Admin: 07/12/17 09:20 Dose: 1,000 mcg Dexamethasone (Dexamethasone) Confirm Administered Dose 4 mg .ROUTE .STK-MED ONE Stop: 07/10/17 07:05 Diltiazem HCl (Diltiazem) 20 mg IVPUSH ONETIME ONE Stop: 07/14/17 19:15 Last Admin: 07/14/17 19:39 Dose: 20 mg Diphenhydramine HCl (Benadryl) 25 - 50 mg IVPUSH Q4H PRN PRN Reason: ITCHING Ephedrine Sulfate (Ephedrine Sulfate) Confirm Administered Dose 50 mg .ROUTE .STK-MED ONE Stop: 07/10/17 07:53 Fentanyl (Sublimaze) Confirm Administered Dose 250 mcg .ROUTE .STK-MED ONE Stop: 07/10/17 07:05 Fluoxetine HCl (Prozac) 60 mg PO DAILY [facility] Last Admin: 07/11/17 08:27 Dose: 60 mg Furosemide (Lasix) 40 mg IVPUSH ONETIME STA Stop: 07/12/17 01:54 Last Admin: 07/12/17 02:06 Dose: 40 mg Furosemide (Lasix) Confirm Administered Dose 40 mg .ROUTE .STK-MED ONE Stop: 07/12/17 01:58 Last Admin: 07/12/17 04:02 Dose: 40 mg Gabapentin (Neurontin) 300 mg PO ONETIME ONE Stop: 07/10/17 05:52 Last Admin: 07/10/17 06:21 Dose: 300 mg Gabapentin (Neurontin) 300 mg PO TID [facility] Last Admin: 07/11/17 08:26 Dose: 300 mg Glycopyrrolate (Robinul) Confirm Administered Dose 1 mg .ROUTE .STK-MED ONE Stop: 07/10/17 07:05 Heparin Sodium (Porcine) (Heparin Sodium) 5,000 units SUBCUT Q12H [facility] Last Admin: 07/16/17 05:30 Dose: 5,000 units Heparin Sodium (Porcine) (Heparin Sodium) Confirm Administered Dose 5,000 units .ROUTE .STK-MED ONE Stop: 07/12/17 02:38 Last Admin: 07/12/17 04:03 Dose: 5,000 units Heparin Sodium (Porcine) (Heparin Sodium) 4,000 units IVPUSH .BOLUS ONE Stop: 07/16/17 11:01 Last Admin: 07/16/17 10:50 Dose: 4,000 units Hydrochlorothiazide (Hydrochlorothiazide) 25 mg PO DAILY [facility] Last Admin: 07/11/17 08:24 Dose: 25 mg Hydromorphone HCl (Dilaudid Rehabilitation Assistant 15 Mg In Ns 30 Ml) 0 mg IV ASDIRECTED PRN; Protocol PRN Reason: LITHOGRAPHIC PRESS FEEDER PAIN CONTROL Last Admin: 07/12/17 10:01 Dose: 15 mg Hydroxyzine HCl (Vistaril) 100 mg IM ONETIME ONE Stop: 07/10/17 10:40 Last Admin: 07/10/17 10:42 Dose: 100 mg Lidocaine HCl/Dextrose (Lidocaine 2 Gm/D5w 500 Ml) 2 gm in 500 mls @ 30 mls/hr IV .[id number] [facility] PRN Reason: 2 MG/MIN Stop: 07/11/17 10:00 Last Admin: 07/10/17 12:21 Dose: 2 mg/min, 30 mls/hr Ketamine HCl 100 mg/ Sodium (Chloride) 100 mls @ [facility] Reason: 5 MCG/KG/MIN Dextrose/Lactated Ringer's (Dextrose 5%-Lactated Ringers) 1,000 mls @ 100 mls/ [facility] Last Admin: 07/10/17 07:00 Dose: 100 mls/hr Cefoxitin Sodium 2 gm/ Sodium (Chloride) 50 mls @ 100 mls/hr IV ONETIME ONE Stop: 07/10/17 07:59 Last Admin: 07/10/17 07:25 Dose: 100 mls/hr Dextrose/Lactated Ringer's (Dextrose 5%-Lactated Ringers) 1,000 mls @ 175 mls/ [facility] Last Admin: 07/11/17 06:25 Dose: 175 mls/hr Multivitamins/Minerals 10 ml/Thiamine HCl 200 mg/ Chromium/Copper/Manganese/ Seleni/Zn 1 ml/ Dextrose/Lactated Ringer's 1,013 mls @ 175 mls/hr IV DAILY@ 1600 [facility] Last Admin: 07/10/17 17:50 Dose: 175 mls/hr Cefoxitin Sodium 2 gm/ Sodium (Chloride) 50 mls @ 100 mls/hr IV Q6H [facility] Stop: 07/11/17 07:59 Last Admin: 07/11/17 08:20 Dose: 100 mls/hr Lactated Ringer's (Ringers, Lactated) 1,000 mls @ 100 [facility]ls[facility] Last Admin: 07/11/17 08:20 Dose: 100 mls/hr Magnesium Sulfate 2 gm/ Premix 50 mls @ 25 mls/hr IV Q6H [facility] Stop: 07/14/17 05:59 Last Admin: 07/14/17 03:25 Dose: 25 mls/hr Multivitamins/Minerals 10 ml/Thiamine HCl 200 mg/ Chromium/Copper/Manganese/ Seleni/Zn 1 ml/ Lactated Ringer's 1,013 mls @ 100 mls/hr IV DAILY@1600 [facility] Last Admin: 07/11/17 17:11 Dose: 100 mls/hr Propofol (Diprivan 100 Ml) Confirm Administered Dose 100 mls @ as directed .ROUTE .STK-MED ONE Stop: 07/12/17 02:49 Last Admin: 07/12/17 05:23 Dose: 100 mg Norepinephrine Bitartrate 4 mg (/ Dextrose/Water) 250 mls @ 7.5 mls/hr IV TITRATE ROB; 2 MCG/MIN PRN Reason: Protocol Last Admin: 07/13/17 05:29 Dose: 20 mcg/min, 75 mls/hr Clindamycin Phosphate 600 mg/ (Sodium Chloride) 54 mls @ 100 mls/hr IV Q8H ROB Last Admin: 07/13/17 04:02 Dose: 100 mls/hr Meropenem 1 gm/ Sodium (Chloride) 100 mls @ 200 mls/hr IV Q8H ROB Last Admin: 07/13/17 04:31 Dose: 200 mls/hr Dextrose/Water (Dextrose 5% In Water) Confirm Administered Dose 250 mls @ as directed .ROUTE .STK-MED ONE Stop: 07/12/17 03:50 Last Admin: 07/12/17 04:04 Dose: Not Given Vasopressin 100 units/ (Dextrose/Water) 255 mls @ 4.59 mls/hr IV TITRATE ROB; 0.03 UNITS/MIN PRN Reason: Protocol Last Titration: 07/14/17 03:01 Dose: 0.02 units/min, 3.06 mls/hr Dextrose/Water (Dextrose 5% In Water) Confirm Administered Dose 250 mls @ as directed .ROUTE .STK-MED ONE Stop: 07/12/17 04:30 Last Admin: 07/12/17 05:28 Dose: 250 ml Sodium Chloride (Normal Saline) 1,000 mls @ 999 mls/hr IV .BOLUS ONE Stop: 07/12/17 04:51 Last Admin: 07/12/17 03:51 Dose: 999 mls/hr Sodium Chloride (Normal Saline) 1,000 mls @ 500 mls/hr IV ASDIRECTED ROB Sodium Chloride (Normal Saline) 1,000 mls @ 250 mls/hr IV ASDIRECTED ROB Last Infusion: 07/12/17 08:24 Dose: 0 mls/hr Lactated Ringer's (Ringers, Lactated) 500 mls @ 500 mls/hr IV ONETIME ONE Stop: 07/12/17 16:50 Last Admin: 07/12/17 15:35 Dose: 500 mls/hr Dobutamine HCl/Dextrose (Dobutamine In D5w 250 Mg/250 Ml) 250 mg in 250 mls @ 19.105 mls/hr IV TITRATE ROB; 2 MCG/KG/MIN PRN Reason: Protocol Last Titration: 07/13/17 12:40 Dose: 0 mcg/kg/min, 0 mls/hr Lactated Ringer's (Ringers, Lactated) 1,000 mls @ 500 mls/hr IV ASDIRECTED ROB Stop: 07/13/17 04:15 Linezolid 600 mg/ Premix 300 mls @ 300 mls/hr IV Q12H ROB Last Admin: 07/15/17 20:46 Dose: 300 mls/hr Norepinephrine Bitartrate 8 mg (/ Dextrose/Water) 500 mls @ 7.5 mls/hr IV TITRATE ROB; 2 MCG/MIN PRN Reason: Protocol Norepinephrine Bitartrate 16 (mg/ Dextrose/Water) 500 mls @ 3.75 mls/hr IV TITRATE ROB; 2 MCG/MIN PRN Reason: Protocol Stop: 07/15/17 11:29 Last Titration: 07/14/17 23:02 Dose: 6 mcg/min, 11.25 mls/hr Meropenem 1 gm/ Sodium (Chloride) 50 mls @ 100 mls/hr IV Q8H ROB Last Admin: 07/14/17 03:13 Dose: 100 mls/hr Vasopressin 40 units/ Dextrose (/Water) 100 mls @ 4.5 mls/hr IV TITRATE ROB; 0.03 UNITS/MIN PRN Reason: Protocol Last Titration: 07/14/17 18:00 Dose: 0 units/min, 0 mls/hr Diltiazem HCl 100 mg/ Sodium (Chloride) 100 mls @ 5 mls/hr IV TITRATE ROB; 5 MG /HR PRN Reason: Protocol Last Admin: 07/16/17 00:41 Dose: 10 mg/hr, 10 mls/hr Levofloxacin/Dextrose 750 mg/ (Premix) 150 mls @ 100 mls/hr IV ONETIME ONE Stop: 07/14/17 23:30 Last Admin: 07/14/17 22:38 Dose: 100 mls/hr Vancomycin HCl 2 gm/ Sodium (Chloride) 250 mls @ 125 mls/hr IV ONETIME ONE Stop: 07/16/17 11:59 Last Admin: 03/11/18 10:33 Dose: 125 mls/hr Influenza Virus Vaccine (Fluzone Quad ) 60 mcg IM .ONCE ONE Stop: 07/10/17 06:31 Last Admin: 07/10/17 12:24 Dose: Not Given Influenza Virus Vaccine (Fluzone Quad ) 60 mcg IM .ONCE ONE Stop: 07/12/17 11:31 Last Admin: 07/12/17 16:05 Dose: Not Given Insulin Aspart (Novolog) 5 unit SUBCUT ONETIME ONE Stop: 07/10/17 10:16 Last Admin: 07/10/17 10:12 Dose: 5 units Insulin Aspart (Novolog) 0 unit SUBCUT Q6H PRN; Protocol PRN Reason: PER CORRECTIONAL DOSING Last Admin: 07/12/17 16:03 Dose: 7 units Insulin Aspart (Novolog) 0 unit SUBCUT ONETIME STA Stop: 07/10/17 22:23 Last Admin: 07/10/17 22:43 Dose: 20 units Insulin Aspart (Novolog) 0 unit SUBCUT Q6H ROB PRN Reason: Protocol Last Admin: 07/13/17 03:41 Dose: 15 units Insulin Aspart (Novolog) 14 unit SUBCUT ONETIME ONE Stop: 07/12/17 23:41 Last Admin: 07/12/17 23:51 Dose: 14 units Insulin Aspart (Novolog) 16 unit SUBCUT ONETIME ONE Stop: 07/13/17 06:35 Last Admin: 07/13/17 06:45 Dose: 16 units Insulin Detemir (Levemir) 35 unit SUBCUT BEDTIME [facility] Last Admin: 07/11/17 06:22 Dose: Not Given Insulin Detemir (Levemir) 0 unit SUBCUT ONETIME ONE Stop: 07/10/17 22:28 Last Admin: 07/10/17 22:43 Dose: 45 units Iohexol (Omnipaque-300) 50 ml PO .ASDIRECTED STA Stop: 07/11/17 03:45 Last Admin: 07/11/17 03:56 Dose: 50 ml Isosorbide Mononitrate (Imdur) 30 mg PO DAILY [facility] Last Admin: 07/11/17 08:24 Dose: 30 mg Ketamine HCl (Ketalar) 30 mg IV ASDIRECTED [facility] Labetalol HCl (Normodyne) 5 - 15 mg IVPUSH Q1H PRN PRN Reason: SBP over 160 OR DBP over 95 Levothyroxine Sodium (Levothyroxine) 75 mcg PO DAILY@0730 [facility] Last Admin: 07/12/17 08:06 Dose: Not Given Lidocaine HCl (Xylocaine 2%) 145 mg IVPUSH ONETIME ONE Stop: 07/10/17 07:31 Last Admin: 07/10/17 12:23 Dose: Not Given Lisinopril (Prinivil) 40 mg PO DAILY [facility] Last Admin: 07/11/17 08:27 Dose: 40 mg Methylprednisolone Sodium Succinate (Solu-Medrol) 125 mg IVPUSH ONETIME ONE Stop: 07/12/17 03:59 Last Admin: 07/12/17 04:15 Dose: 125 mg Methylprednisolone Sodium Succinate (Solu-Medrol) 125 mg IVPUSH ONETIME ONE Stop: 07/16/17 11:01 Last Admin: 07/16/17 10:50 Dose: 125 mg Metoprolol Tartrate (Lopressor) 100 mg PO BID [facility] Last Admin: 07/11/17 21:07 Dose: 100 mg Metoprolol Tartrate (Lopressor) 5 mg IV Q6H [facility] Last Admin: 07/12/17 09:14 Dose: 5 mg Miscellaneous Information (Remove Patch) 1 ea TRDERM ONETIME ONE Stop: 07/12/17 10:01 Last Admin: 07/12/17 09:25 Dose: Not Given Naloxone HCl (Narcan) 0.1 mg IV ASDIRECTED PRN PRN Reason: decreased respiratory rate Neostigmine Methylsulfate (Neostigmine) Confirm Administered Dose 5 mg .ROUTE .STK-MED ONE Stop: 07/10/17 07:05 Nitroglycerin (Nitro-Bid 2%) Confirm Administered Dose 1 gm .ROUTE .STK-MED ONE Stop: 07/12/17 10:00 Last Admin: 07/12/17 10:15 Dose: 1 gm Nitroglycerin (Nitro-Bid 2%) 1 gm TOP ONETIME ONE Stop: 07/12/17 10:00 Last Admin: 07/13/17 09:03 Dose: 1 gm Check Scopolamine (Patch Daily) 1 each TOP DAILY [facility] Last Admin: 07/16/17 09:25 Dose: Not Given Ondansetron HCl (Zofran) Confirm Administered Dose 4 mg .ROUTE .STK-MED ONE Stop: 07/10/17 07:05 Pantoprazole Sodium (Protonix Iv) 40 mg IVPUSH Q24H [facility] Last Admin: 07/11/17 13:55 Dose: 40 mg Pantoprazole Sodium (Protonix Iv) 40 mg IV Q24H [facility] Last Admin: 07/14/17 11:35 Dose: 40 mg Phenylephrine HCl (Ran-Synephrine) Confirm Administered Dose 10 mg .ROUTE .STK- MED ONE Stop: 07/10/17 08:52 Propofol (Diprivan 20 Ml) Confirm Administered Dose 200 mg .ROUTE .STK-MED ONE Stop: 07/10/17 07:05 Propofol (Diprivan 20 Ml) 100 mg IVPUSH ONETIME ONE Stop: 07/12/17 02:31 Last Admin: 07/12/17 04:24 Dose: Not Given Propofol (Diprivan 20 Ml) 100 mg IVPUSH ONETIME ONE Stop: 07/12/17 02:41 Last Admin: 07/12/17 04:25 Dose: Not Given Rocuronium [place] (Zemuron) Confirm Administered Dose 50 mg .ROUTE .STK-MED ONE Stop: 07/10/17 07:05 Rocuronium [place] (Zemuron) Confirm Administered Dose 50 mg .ROUTE .STK-MED ONE Stop: 07/10/17 08:57 Rocuronium [place] (Zemuron) 15 mg IV ONETIME ONE Stop: 07/12/17 02:31 Last Admin: 07/12/17 04:24 Dose: Not Given Scopolamine (Transderm-Scop) 1.5 mg TRDERM ONETIME ONE Stop: 07/10/17 06:01 Last Admin: 07/10/17 06:22 Dose: 1.5 mg Sodium Polystyrene Sulfonate (Kayexalate) 45 gm RECTAL NOW ONE Stop: 07/12/17 23:41 Last Admin: 07/13/17 00:15 Dose: 45 gm Sodium Polystyrene Sulfonate (Kayexalate) 30 gm RECTAL NOW ONE Stop: 07/13/17 06:34 Last Admin: 07/13/17 06:57 Dose: 30 gm Sodium Polystyrene Sulfonate (Kayexalate) 45 gm RECTAL NOW ONE Stop: 07/16/17 06:27 Last Admin: 07/16/17 07:50 Dose: 45 gm Succinylcholine Chloride (Quelicin) Confirm Administered Dose 200 mg .ROUTE .STK -MED ONE Stop: 07/10/17 07:05 Vasopressin (Vasopressin) Confirm Administered Dose 100 units .ROUTE .STK-MED ONE Stop: 07/12/17 04:29 Last Admin: 07/12/17 04:48 Dose: 100 units *Q Meaningful Use (DIS) - VTE *Q VTE Criteria *Q: - Stroke *Q Stroke Criteria *Q: - AMI *Q AMI Criteria *Q:
[2017-07-16 14:02] VITALS: BP 124/43
[2017-07-16] MEDS ORDERED: methylPREDNISolone Sodium Succinate 40 MG/1 ML SDV IVPUSH SCH (17:00)
[2017-07-16] MEDS ORDERED: Levofloxacin/Dextrose 5%-Water 500 MG in Premix Bag 1 BAG IV SCH (22:00)
--- NOTE | 2017-07-17 08:44 | CR ---
Chest 1V Frontal HISTORY: Respiratory failure. Intubation. COMPARISON: 07/14/2017. FINDINGS: Endotracheal tube unchanged in position. There is diffuse airspace disease in the mid and l ower lung zones not significantly changed from prior study no new infiltrates seen. Cardiac pacer ove rlying the right chest has been removed.
--- NOTE | 2017-07-17 09:17 | CR ---
Chest 1V Frontal HISTORY: Intubation COMPARISON: 07/15/2017. FINDINGS: Endotracheal tube approximately 5 cm above the ale. Left-sided central line placement di stal tip overlies superior vena cava. The film is rotated moderately to the right. There is stable mi ld cardiomegaly. Infiltrate right lung base slightly increased from prior study diffuse airspace dise ase in the mid and lower lung zones bilaterally similar to prior study. Impression: 1. Left-sided central line catheter appears in good position no pneumothorax. 2. Increasing infiltrate right lung base with additional similar appearing airspace disease in the mi d and lower lung zones.
[2017-07-17] MEDS ORDERED: Fluconazole/Normal Saline 100 MG in Premix Bag 1 BAG IV SCH (10:00)
--- NOTE | 2017-07-17 11:13 | PN ---
DATE OF SERVICE: 07/13/2017 The patient continues to do quite poorly with blood pressures in the 70 range and urine output of only around 10 mL an hour on high-dose dobutamine, as well as norepinephrine. During the night, when we moved her in an attempt to give her some rectal Kayexalate, she desaturated and became quite bradycardic and very difficult to oxygenate. This has improved somewhat, presently on 100%. Her pO2 is 112. She is somewhat acidotic with pH of 7.24, pCO2 of 35, and bicarbonate of 14. Presently on IMV with a baseline at 15 and respiratory rate around 20. They were able to get Kayexalate enema in this morning with frog-legging the patient, rather than turning, and this began to bring down the potassium somewhat. At this point, I think we will go up on the vasopressin, aim for a systolic pressure of 90, knowing there is some risk of coronary artery spasm issues with that, but I think we need to get some more of a blood pressure. Gram stain showed gram-positive cocci. We will add some Zyvox until the cultures are back. Her blood sugars are presently high and will ask Dr. Steele regarding possible insulin drip. Otherwise, the main goal at this point would be to try to get a little bit more in the way of systolic blood pressure by means of increasing the vasopressin rate. Manuel Sunshine MD /[id number]
--- NOTE | 2017-07-17 11:34 | PN ---
DATE OF SERVICE: 07/14/2017 The patient has clinically improved somewhat over the last 24 hours, getting at around 70% FiO2. Urine output is improving somewhat, and creatinine is becoming relatively stable. The amount of pressors has decreased as well. Her abdomen remains soft with no signs of intraabdominal problems. I think we are still likely dealing with the issue of aspiration as a primary insult. We will continue present management with the assistance of Dr. Steele. Manuel Sunshine MD /[id number]
--- NOTE | 2017-07-17 11:43 | PN ---
DATE OF SERVICE: 07/15/2017 The patient overnight developed atrial fibrillation with rapid ventricular rate and, with this, has had decreased oxygenation and increasing the ventilator means developing more of a metabolic acidosis. Again, her drains are clear. Her abdominal exam is unremarkable. I do not think we are dealing with an intraabdominal sepsis, and, again, the clinical course was symptoms of aspiration with abrupt onset of the insult, and again, it does not appear likely that we are dealing with an intraabdominal sepsis per se. We will continue this management with assistance of Dr. Steele. Manuel Sunshine MD /[id number]
--- NOTE | 2017-07-17 11:46 | OR ---
DATE OF PROCEDURE: 07/12/2017 PREOPERATIVE DIAGNOSIS: Indications for central venous access. POSTOPERATIVE DIAGNOSIS: Indications for central venous access. OPERATIVE PROCEDURE: Insertion of left subclavian vein triple-lumen catheter. ANESTHESIA: Local. INDICATION FOR PROCEDURE: The patient developed a picture of severe sepsis and respiratory failure and is requiring additional IV access as well as intravenous pressure monitoring. Given this, a central line should be placed. Potential risks were reviewed with the patient's significant other, and he wishes to proceed. DETAILS OF PROCEDURE: The patient was placed in a supine position in the ICU bed. Upper chest and neck areas were prepped and draped, and the left subclavian area was anesthetized with 1% lidocaine. The left subclavian vein was then cannulated. A guidewire was passed and over the guidewire, a triple-lumen catheter positioned, good in and outflow were confirmed. The ports were flushed with heparinized saline. The catheter was sutured to skin with some 3-0 silk stitch. Dressing applied. Subsequent chest x-ray showed good catheter position without complications. Manuel Sunshine MD /[id number]
--- NOTE | 2017-07-17 11:49 | PN ---
DATE OF SERVICE: 07/16/2017 The patient had a T-max of 100.7 overnight. Temperature presently is 98. Vital signs per se are fairly stable with heart rate presently in the 90s and adequate blood pressure. Her oxygenation was roughly status quo. She presently is on 90% FiO2. Lab showed continued high white count. Hemoglobin is stable at 9.8. Continues to have significant metabolic acidosis with pH, arterial blood gas, right around 7.2. This degree of acidosis may be helpful in terms of offloading the oxygen. Urine output has been a 30 mL to 40 mL an hour. Creatinine does continue to be elevated at 3.6 and potassium of 6.0. She will be getting some Kayexalate enema once again today. At this point, the prognosis remains fairly poor, but we will continue management with assistance of Dr. Steele. Again, her abdominal status does not appear to be likely the culprit in terms of underlying sepsis as opposed to the aspiration event. Manuel Sunshine MD /[id number]
== END 2017-07-16 15:05 | DRG 619 ==
LOC: JP.MS 05:08 → JP.SDS 05:08 → EDSTATUS 08:45 → JP.2SS 09:45 → JP.ICU 07-12 03:00
PROVIDERS: ADMIT Surgery; ATTEND Surgery
PROC: 0D164ZA Bypass Stomach to Jejunum, Percutaneous Endoscopic Approach (ICD-10-PCS; principal; 2017-07-10)
PROC: 0FB24ZX Excision of Left Lobe Liver, Percutaneous Endoscopic Approach, Diagnostic (ICD-10-PCS; 2017-07-10)
PROC: 0BQT4ZZ Repair Diaphragm, Percutaneous Endoscopic Approach (ICD-10-PCS; 2017-07-10)
PROC: 3E0T3BZ Introduction of Anesthetic Agent into Peripheral Nerves and Plexi, Percutaneous Approach (ICD-10-PCS; 2017-07-10)
PROC: 0DBW4ZX Excision of Peritoneum, Percutaneous Endoscopic Approach, Diagnostic (ICD-10-PCS; 2017-07-10)
PROC: 0WBC4ZX Excision of Mediastinum, Percutaneous Endoscopic Approach, Diagnostic (ICD-10-PCS; 2017-07-10)
PROC: 03HC33Z Insertion of Infusion Device into Left Radial Artery, Percutaneous Approach (ICD-10-PCS; 2017-07-12)
PROC: 0BH17EZ Insertion of Endotracheal Airway into Trachea, Via Natural or Artificial Opening (ICD-10-PCS; 2017-07-12)
PROC: 5A1945Z Respiratory Ventilation, 24-96 Consecutive Hours (ICD-10-PCS; 2017-07-12)
PROC: 02HV33Z Insertion of Infusion Device into Superior Vena Cava, Percutaneous Approach (ICD-10-PCS; 2017-07-12)
DX: E66.01 Morbid (severe) obesity due to excess calories (principal); A41.9 Sepsis, unspecified organism; J18.9 Pneumonia, unspecified organism; R65.21 Severe sepsis with septic shock; E87.2 Acidosis; J80 Acute respiratory distress syndrome; N17.9 Acute kidney failure, unspecified; E87.4 Mixed disorder of acid-base balance; Z68.44 Body mass index [BMI] 60.0-69.9, adult; R16.0 Hepatomegaly, not elsewhere classified; K44.9 Diaphragmatic hernia without obstruction or gangrene; D17.4 Benign lipomatous neoplasm of intrathoracic organs; K66.8 Other specified disorders of peritoneum; G47.33 Obstructive sleep apnea (adult) (pediatric); K21.9 Gastro-esophageal reflux disease without esophagitis; I25.10 Atherosclerotic heart disease of native coronary artery without angina pectoris; F32.9 Major depressive disorder, single episode, unspecified; M19.90 Unspecified osteoarthritis, unspecified site; E78.5 Hyperlipidemia, unspecified; Z88.0 Allergy status to penicillin; K76.0 Fatty (change of) liver, not elsewhere classified; I12.9 Hypertensive chronic kidney disease with stage 1 through stage 4 chronic kidney disease, or unspecified chronic kidney disease; E11.22 Type 2 diabetes mellitus with diabetic chronic kidney disease; N18.3 Chronic kidney disease, stage 3 (moderate); Z79.4 Long term (current) use of insulin; E87.5 Hyperkalemia; I95.9 Hypotension, unspecified; I48.91 Unspecified atrial fibrillation; R74.0 Nonspecific elevation of levels of transaminase and lactic acid dehydrogenase [LDH]; Z87.11 Personal history of peptic ulcer disease
CPT/HCPCS: 36415; 36600; 71045; 71045-26; 74240; 74240-26; 80048; 80053; 82553; 82803; 82962; 83036; 83605; 83690; 83735; 83880; 84100; 84484; 85025; 85027; 86850; 86870; 86900; 86901; 86902; 87040; 87070; 87205; 88304; 88305; 88307; 88313; 93005; 93308; 94002; 94003; 94640; 94762; 97162-GP; A9270-GY; C9113; C9399; J0171; J0330; J0694; J1100; J1170; J1250; J1450; J1644; J1940; J1956; J2001; J2020; J2185; J2370; J2405; J2704; J2710; J2795; J2930; J3010; J3370; J3410; J3411; J3420; J3475; J3490; J7030; J7040; J7042; J7050; J7060; J7120; J7620; Q9967; S0028; S0077; S0171